=== PATIENT | male | born 1965 | race Caucasian/White ===

== ENCOUNTER 2023-08-27 19:47 | Inpatient (IN) | payer MEDICARE, SELFPAY ==
--- NOTE | ~2023-08-27 | XR_ITS ---
EXAMINATION: XR CHEST CLINICAL INFORMATION: Cough COMPARISON: None available. TECHNIQUE: Frontal portable view of the chest was obtained. 11:28 AM FINDINGS: No significant abnormality is noted involving the heart, lungs, mediastinum, bony thorax or soft tissues. XR/XR chest 1V IMPRESSION: Unremarkable examination.
[2023-08-27 19:58] VITALS: BP 162/111; PULSE 87; O2SAT 98; BMI 32.9
[2023-08-27 20:02] VITALS: BP 126/80; PULSE 82; RESP 18; TEMP 36.7; O2SAT 97
[2023-08-27 20:49] LABS: Basophils Percent Auto 0.4 % (0-2); Eosinophils Absolute Auto 0.1 X10*3/uL (0.0-0.4); Hematocrit 43.9 % (42.0-52.0); Hemoglobin 14.4 g/dl (14.0-18.0); Imm Gran Abs Auto 0.03 X10*3/uL (0.00-0.03); Imm Gran Pct Auto 0.3 % (0.0-0.4); Lymphocytes Absolute Auto 1.1 X10*3/uL (1.2-4.9); Lymphocytes Percent Auto 11.4 % (20-40); MANUAL DIFF FLAG NO; Mean Corpuscular HGB Conc 32.8 g/dl (31.0-36.0); Mean Corpuscular Hemoglobin 30.2 pg (27.0-33.0); Mean Platelet Volume 10.2 fL (9.4-12.4); Monocytes Absolute Auto 0.8 X10*3/uL (0.1-1.2); Monocytes Percent Auto 7.9 % (2-11); Neutrophils Absolute Auto 7.5 x10*3/uL (2.0-8.3); Platelet Count 269 X10*3/uL (160-400); Red Blood Count 4.77 X10*6/uL (4.60-5.80); Red Cell Distribution Width 13.2 % (11.0-16.0); White Blood Count 9.4 X10*3/uL (4.8-10.8)
[2023-08-27 21:00] LABS: Ethanol < 10 mg/dL
[2023-08-27 21:02] LABS: Alanine Aminotransferase 30 U/L (0-40); Albumin Level 3.8 g/dL (3.5-5.0); Alkaline Phosphatase 68 U/L (39-117); Anion Gap 10 (12-20); Aspartate Amino Transferase 22 U/L (5-37); Bilirubin Direct 0.1 mg/dL (0.0-0.5); Bilirubin Total 0.3 mg/dL (0.0-1.0); Blood Urea Nitrogen 26 mg/dL (9-16); Calcium 9.3 mg/dL (8.4-10.2); Carbon Dioxide 25 mmol/L (22-29); Chloride 108 mmol/L (96-108); Creatinine Clr Calc Pharmacy 92.3; Estimated Glomerular Filt Rate > 60; Glucose Random 98 mg/dL (60-115); Sodium 139 mmol/L (135-145); Total Protein 6.5 g/dL (6.5-8.0)
--- NOTE | 2023-08-27 22:42 | PHA.MEDREC ---
Pharmacy Consult ? Medication Reconciliation Pharmacy has completed the medication reconciliation.Family member has discharge list from [facility]. Went through list and confirmed times and doses of medications. Cecilia Irene CPhT
--- NOTE | 2023-08-27 22:55 | ED_ITS ---
HPI - General Adult General Chief complaint: General Medical Stated complaint: BEHAVIORAL,NOT MED COMPLIANT Time Seen by Provider: 08/27/23 20:54 Source: patient and family Mode of arrival: EMS History of Present Illness HPI narrative: 58-year-old male with history of Lewy body dementia, aggression and is arriving via EMS from home with increasing agitation. History is primarily provided by the who is concerned because there are younger children at home and patient becomes very agitated when he does not get his medications at the time that he asks for them. states that approximately 2 weeks ago he was discharged from [facility] when he insurance ran out, however at that time they were pursuing placement and had an intake appointment for that facility but then when they were discharged the intake appointment was no longer available. Patient has significantly declined over the past 2 weeks and has begun passing urine but currently has a [place] catheter in place. also endorses that patient has significant past history of suicide attempts. Related Data Home Medications Medication Instructions Recorded Confirmed carbidopa ER 25 mg-levodopa 100 mg 1 tab PO TID 08/27/23 08/27/23 tablet,extended release donepezil 5 mg tablet 5 mg PO BEDTIME 08/27/23 08/27/23 escitalopram oxalate 20 mg tablet 20 mg PO BEDTIME 08/27/23 08/27/23 gabapentin 300 mg capsule 300 mg PO TID 08/27/23 08/27/23 melatonin 10 mg tablet 10 mg PO BEDTIME Insomnia 08/27/23 08/27/23 prazosin 1 mg capsule 1 mg PO BID 08/27/23 08/27/23 risperidone 0.5 mg tablet 0.5 mg PO BID 08/27/23 08/27/23 zolpidem 5 mg tablet 5 mg PO BEDTIME 08/27/23 08/27/23 Allergies Allergy/AdvReac Type Severity Reaction Status Date / Time Penicillins Allergy Rash Verified 08/27/23 20:05 Review of Systems 2 Review of Systems: Pertinent positives and negatives as reported in the [facility] Past Medical History Source: nursing notes reviewed Onset Date is defined in the Problem List Problems that require an onset date and time if occurred within 24 hrs of arrival to the ED Aortic Dissection and Rupture; Neurologic impairment; Cardiopulmonary Arrest; Endotracheal Intubation; Insertion or Replacement of Mechanical Circulatory Assist Device Social History Social History Advance Directives: No Advance Directives Information Provided: No Physical Exam ED Vital Signs: Vital Signs - 24 hr 08/27/23 20:02 Temperature 98.1 F Pulse Rate 82 Respiratory Rate 18 Blood Pressure 126/80 Pulse Oximetry 97 Oxygen Delivery Method Room Air BMI result Body Mass Index 32.9 VITAL SIGNS: Reviewed. GENERAL: Well developed, well nourished, in no acute distress. HEAD: Normocephalic/atraumatic EYES: PERRLA, EOMI EARS: Ext canals without abnormality NOSE: Nares patent bilateral OROPHARYNX: no oral lesions noted, posterior pharynx clear NECK: Supple, no adenopathy LUNGS: Normal breath sounds. No adventitious sounds or accessory muscle use. SpO2<97> CARDIOVASCULAR: Regular rate and rhythm without noted murmurs ABDOMEN: Soft, non-tender, non-distended with bowel sounds. : [place] catheter in place with clear yellow urine MUSCULOSKELETAL: No tenderness, deformities, or effusions noted on gross inspection. EXTREMITIES: No cyanosis, clubbing or edema. SKIN: Inspection of the skin reveals no rashes NEUROLOGIC: Alert and oriented x 2. Strength and sensation to light touch were grossly intact x 4, cranial nerves 2-12 are grossly intact. Medical Decision Making Medical Decision Making [facility] Narrative: 58-year-old male with history and clinical presentation consistent with progressing Lewy body dementia and now with decline in behavioral symptoms with aggression and agitation. I reviewed all investigations and hematologic indices are negative for leukocytosis/anemia/thrombocytopenia. Chemistry indices do not demonstrate an HEATHER and there is no electrolyte or liver enzyme derangements. Urinalysis is negative for UTI or hematuria. Urinalysis negative for UDS and alcohol is undetectable. Patient is otherwise medically cleared for further evaluation by the care team. Patient placed in physician observation because the patient needed more time for evaluation by the care team as well as Psychiatry. At the time observation was started the patient's vital signs were stable, patient is alert and oriented but slightly agitated, neuro: Nonfocal, CV RRR, lungs clear Differential Diagnosis Differential Diagnoses: The differential diagnosis associated with the presentation includes Please see the discussion above Admission/Observation Consideration of admission/observation: Escalation of care including admission/observation considered Please see the discussion above Consult Healthcare Provider Management of the patient was discussed with: Business Continuity Director Please see the discussion Lab Data [facility] Lab Attestation statement: I reviewed the patient's lab results. Please see the discussion above 08/27/23 20:44 08/27/23 20:44 Labs: Lab Results 08/27/23 08/27/23 Range/Units 20:44 23:06 WBC 9.4 (4.8-10.8) X10*3/uL RBC 4.77 (4.60-5.80) X10*6/uL Hgb 14.4 (14.0-18.0) g/dl Hct 43.9 (42.0-52.0) % MCV 92.0 (80.0-98.0) fL MCH 30.2 (27.0-33.0) pg MCHC 32.8 (31.0-36.0) g/dl RDW 13.2 (11.0-16.0) % Plt Count 269 (160-400) X10*3/uL MPV 10.2 (9.4-12.4) fL Immature Gran % (Auto) 0.3 (0.0-0.4) % Neut % (Auto) 79.0 H (45-73) % Lymph % (Auto) 11.4 L (20-40) % [place] % (Auto) 7.9 (2-11) % Eos % (Auto) 1.0 (0-4) % Baso % (Auto) 0.4 (0-2) % Lymph # (Auto) 1.1 L (1.2-4.9) X10*3/uL [place] # (Auto) 0.8 (0.1-1.2) X10*3/uL Eos # (Auto) 0.1 (0.0-0.4) X10*3/uL Baso # (Auto) 0.0 (0.0-0.2) X10*3/uL Abs Immat Gran (auto) 0.03 (0.00-0.03) X10*3/uL Absolute Neuts (auto) 7.5 (2.0-8.3) x10*3/uL Absolute Nucleated RBC 0.000 (0.0-0.012) X10*3/uL Nucleated RBC % (auto) 0.0 (0.0-0.2) /100WBC Sodium 139 (135-145) mmol/L Potassium 4.0 (3.3-5.1) mmol/L Chloride 108 (96-108) mmol/L Carbon Dioxide 25 (22-29) mmol/L Anion Gap 10 L (12-20) BUN 26 H (9-16) mg/dL Creatinine 1.04 (0.5-1.4) mg/dL Estim Creat Clear Calc 92.3 Estimated GFR > 60 Random Glucose 98 (60-115) mg/dL Calcium 9.3 (8.4-10.2) mg/dL Total Bilirubin 0.3 (0.0-1.0) mg/dL Direct Bilirubin 0.1 (0.0-0.5) mg/dL AST 22 (5-37) U/L ALT 30 (0-40) U/L Alkaline Phosphatase 68 (39-117) U/L Total Protein 6.5 (6.5-8.0) g/dL Albumin 3.8 (3.5-5.0) g/dL Urine Color Yellow Urine Appearance Clear Urine pH 7.0 (5.0-9.0) Ur Specific [place] 1.025 (1.005-1.025) Urine Protein Negative (Neg-Trace) mg/dL Urine Glucose (UA) Negative (Negative) mg/dL Urine Ketones Trace (Negative) mg/dL Urine Blood Negative (Negative) Urine Nitrite Negative (Negative) Ur Leukocyte Esterase Negative (Negative) Urine Opiates Screen Not Detected (Not Detect) Urine Fentanyl Screen Not Detected (Not Detect) Ur Barbiturates Screen Not Detected (Not Detect) Ur Phencyclidine Scrn Not Detected (Not Detect) Ur Amphetamines Screen Not Detected (Not Detect) U Benzodiazepines Scrn Not Detected (Not Detect) Urine Cocaine Screen Not Detected (Not Detect) U Marijuana (THC) Screen Not Detected (Not Detect) Ethyl Alcohol < 10 mg/dL Chronic Conditions Patient?s care impacted by: Other Lewy body dementia Critical Care Time Critical Care Time Critical Care Time: Yes Total Critical Care Time: 45 Attestation: I personally attest to this time spent taking care of the patient. Discharge Plan Discharge Clinical Impression: Lewy body dementia with behavioral disturbance Patient Disposition: Still a Patient Prescriptions: No Action donepezil 5 mg tablet 5 mg PO BEDTIME carbidopa-levodopa 25-100 mg tablet extended release 1 tab PO TID prazosin 1 mg capsule 1 mg PO BID gabapentin 300 mg capsule 300 mg PO TID zolpidem 5 mg tablet 5 mg PO BEDTIME risperidone 0.5 mg tablet 0.5 mg PO BID escitalopram oxalate 20 mg tablet 20 mg PO BEDTIME melatonin 10 mg Tablet 10 mg PO BEDTIME
[2023-08-27 23:17] LABS: Appearance Urine Clear; Color Urine Yellow; Glucose Urine UA Negative (Negative); Leukocyte Esterase Urine Negative (Negative); Nitrite Urine Negative (Negative); Specific Gravity - Urine 1.025 (1.005-1.025); Urine Blood Negative (Negative); Urine Ketones Trace mg/dL (Negative); Urine Protein Negative (Neg-Trace)
[2023-08-27 23:22] LABS: Amphetamine Screen Urine Not Detected (Not Detect); Barbiturates, Urine Not Detected (Not Detect); Benzodiazepines Screen Urine Not Detected (Not Detect); Cannabinoid Screen Urine Not Detected (Not Detect); Cocaine Screen Urine Not Detected (Not Detect); Fentanyl, urine Not Detected (Not Detect); Opiate Screen Urine Not Detected (Not Detect); Phencyclidine Screen Urine Not Detected (Not Detect)
[2023-08-28] VITALS (8 sets, daily range): BP systolic 122–137; BP diastolic 77–90; PULSE 63–84; RESP 14–18; TEMP 36.7–37.1; O2SAT 92–96
[2023-08-28] MEDS: Zolpidem Tartrate 5 MG TABLET PO ×2 (00:32→20:23)
[2023-08-28] MEDS: Gabapentin 300 MG CAPSULE PO ×4 (00:32→20:22)
[2023-08-28] MEDS: Escitalopram Oxalate 20 MG TABLET PO ×2 (00:32→20:21)
[2023-08-28] MEDS: Donepezil HCl 5 MG TABLET PO ×2 (00:32→20:24)
--- NOTE | 2023-08-28 07:22 | PC.NURSE ---
Assumed care of this pt at 0700. pt sleeping at the time of assuming care. vss, previously documented. Will continue to observe.
[2023-08-28] MEDS: risperiDONE 0.5 MG TABLET PO ×2 (09:21→20:23)
[2023-08-28] MEDS: Prazosin HCL 1 MG CAPSULE PO ×2 (09:21→20:22)
--- NOTE | 2023-08-28 09:28 | PC.NURSE ---
pt assisted to bedside commode. lg bm. meds given as documented. Sinemet not loaded in ed pyxis, pharmacy aware and will bring to ed. pt aware. vss.
[2023-08-28] MEDS: Carbidopa/Levodopa CR 25/100 TABLET.ER 1 TAB PO ×3 (09:46→20:20)
--- NOTE | 2023-08-28 13:45 | MHC.CARE ---
RAD Team conducted [place] bed[place], unfortunately no beds available. Faxed referral to [facility] waitlist. RAD Team will continue bedsearch tomorrow (08/29) if deemed appropriate
--- NOTE | 2023-08-28 19:18 | PC.NURSE ---
This RN took over pt care @ 1900. Pt ca&o sitting up watching tv. Pt requesting meds @ 8pm. Pt denies pain at this time. Plan of care ongoing.
[2023-08-28] MEDS: Melatonin 3 MG TABLET 9 MG PO (20:22)
--- NOTE | 2023-08-28 20:34 | PC.NURSE ---
Pt requested meds @ 1999. Pt medicated per oct. Pt denies pain at this time. Plan of care ongoing.
--- NOTE | 2023-08-28 21:33 | MHC.CARE ---
Pt was unable to be seen for his MSU due to being medicated and asleep for the night. According to his nurse (Lila) Pt insists on receiving his night time meds at 8pm. He was repeatedly ringing his buzzer tonight to request his night time med. He will require day time MSUs.
[2023-08-29 06:46] VITALS: BP 128/78; PULSE 73; RESP 18; TEMP 36.6; O2SAT 95
[2023-08-29] MEDS: risperiDONE 0.5 MG TABLET PO ×2 (09:25→20:22)
[2023-08-29] MEDS: Carbidopa/Levodopa CR 25/100 TABLET.ER 1 TAB PO ×3 (09:25→20:21)
[2023-08-29] MEDS: Gabapentin 300 MG CAPSULE PO ×3 (09:26→20:22)
[2023-08-29] MEDS: Prazosin HCL 1 MG CAPSULE PO ×2 (09:26→20:22)
--- NOTE | 2023-08-29 11:34 | PC.NURSE ---
pt's came to visit. pt took medications this morning. pt has been resting
--- NOTE | 2023-08-29 13:51 | P.CNPS_ITS ---
History of Present Illness Date of Service: t Chief Complaint: BEHAVIORAL,NOT MED COMPLIANT Reason for Consult: Assessment of dysphoria and dementia Discussed with referring provider: Yes Sources of Information: patient interviewed, chart reviewed and crisis/core team assessment reviewed HPI Narrative: The patient is a 58-year-old male, with a past history of leave with body dementia who was recently discharged 2 weeks ago from another hospital he ran out of his benefits on his insurance. He was brought to the emergency room since he reported suicidal ideation, disorganized behavior and his family were unable to take care of him. On interview, the patient reported that he was brought to the emergency room because he was feeling suicidal, he did not have any current plan or intent. He stated that he also besides being depressed, he has poor short-term memory. He carries a diagnosis of living but dementia is 69 that he has tremors. We review his list of medications and even though that anti cholinesterases are not standard of care, there is enough scientific evidence to use it for we poorly we body dementia. Past Psychiatric History: Prior admission a few weeks ago at [facility] for early we would dementia. Medical Evaluation Reviewed: Yes Diagnostics Vital Signs (24Hr): Vital Signs - 24 hr 08/28/23 14:00 08/28/23 19:11 08/29/23 06:46 Temperature 98.1 F 97.9 F Pulse Rate 83 83 73 Respiratory Rate 16 17 18 Blood Pressure 122/77 135/81 128/78 Pulse Oximetry 95 94 95 Oxygen Delivery Method Room Air Room Air Room Air BMI result Body Mass Index 32.9 Labs 08/27/23 20:44 08/27/23 20:44 Labs: Laboratory Results - last 48 hr 08/27/23 08/27/23 20:44 23:06 WBC 9.4 RBC 4.77 Hgb 14.4 Hct 43.9 MCV 92.0 MCH 30.2 MCHC 32.8 RDW 13.2 Plt Count 269 MPV 10.2 Immature Gran % (Auto) 0.3 Neut % (Auto) 79.0 H Lymph % (Auto) 11.4 L [place] % (Auto) 7.9 Eos % (Auto) 1.0 Baso % (Auto) 0.4 Lymph # (Auto) 1.1 L [place] # (Auto) 0.8 Eos # (Auto) 0.1 Baso # (Auto) 0.0 Abs Immat Gran (auto) 0.03 Absolute Neuts (auto) 7.5 Absolute Nucleated RBC 0.000 Nucleated RBC % (auto) 0.0 Sodium 139 Potassium 4.0 Chloride 108 Carbon Dioxide 25 Anion Gap 10 L BUN 26 H Creatinine 1.04 Estim Creat Clear Calc 92.3 Estimated GFR > 60 Random Glucose 98 Calcium 9.3 Total Bilirubin 0.3 Direct Bilirubin 0.1 AST 22 ALT 30 Alkaline Phosphatase 68 Total Protein 6.5 Albumin 3.8 Urine Color Yellow Urine Appearance Clear Urine pH 7.0 Ur Specific [place] 1.025 Urine Protein Negative Urine Glucose (UA) Negative Urine Ketones Trace Urine Blood Negative Urine Nitrite Negative Ur Leukocyte Esterase Negative Urine Opiates Screen Not Detected Urine Fentanyl Screen Not Detected Ur Barbiturates Screen Not Detected Ur Phencyclidine Scrn Not Detected Ur Amphetamines Screen Not Detected U Benzodiazepines Scrn Not Detected Urine Cocaine Screen Not Detected U Marijuana (THC) Screen Not Detected Ethyl Alcohol < 10 Mental Status Exam Mental Status Exam Patient Appearance: Appropriate (On hospital gowns) and Unkempt Patient Orientation: Person and Situation Level of Consciousness: Awake Patient Behavior: Guarded Mood Description: Withdrawn Affect Description: Calm and Constricted Patient Cognition Impaired: Yes Ability to Follow Directions: Fair Speech Pattern: Clear Hallucinations: None Delusions: Not Present Thought Process: Distracted, Evasive and Slowed Thinking Thought Content: positive for [place] and positive for Poverty of Content Judgement: Poor Medications Medications Current Medications Carbidopa/Levodopa (Carbidopa/Levodopa Cr 25/100 Tablet.Er) 1 tab PO TID [facility] Last Admin: 08/29/23 09:25 Dose: 1 tab Donepezil HCl (Donepezil Hcl 10 Mg Tablet) 10 mg PO BEDTIME [facility] Escitalopram Oxalate (Escitalopram Oxalate 20 Mg Tablet) 20 mg PO BEDTIME [facility] Last Admin: 08/28/23 20:21 Dose: 20 mg Gabapentin (Gabapentin 300 Mg Capsule) 300 mg PO TID [facility] Last Admin: 08/29/23 09:26 Dose: 300 mg Melatonin (Melatonin 3 Mg Tablet) 9 mg PO BEDTIME [facility] Last Admin: 08/28/23 20:22 Dose: 9 mg Prazosin HCl (Prazosin Hcl 1 Mg Capsule) 1 mg PO BID [facility]; Protocol Last Admin: 08/29/23 09:26 Dose: 1 mg Risperidone (Risperidone 0.5 Mg Tablet) 0.5 mg PO BID [facility] Last Admin: 08/29/23 09:25 Dose: 0.5 mg Zolpidem Tartrate (Zolpidem Tartrate 5 Mg Tablet) 5 mg PO BEDTIME [facility] Last Admin: 08/28/23 20:23 Dose: 5 mg Allergies Allergies Allergy/AdvReac Type Severity Reaction Status Date / Time Penicillins Allergy Rash Verified 08/27/23 20:05 Assessment & Plan Assessment & Plan (1) Lewy body dementia with behavioral disturbance: Status: Acute Code(s): G31.83 - Neurocognitive disorder with Lewy bodies; F02.818 - Dementia in other diseases classified elsewhere, unspecified severity, with other behavioral disturbance (2) Depressive disorder: Status: Acute Code(s): F32.A - Depression, unspecified Plan The patient is an elderly male with a past history of leaving but he dementia who was brought into the facility for exacerbation of dysphoria, suicidal ideation and inability take care of himself. He was recently discharged from another hospital for the same symptomatology few weeks ago. Plan 1. Gather collateral information, the patient is a very limited historian. 2. Continue antidepressants and Risperdal 0.5 mg p.o. b.i.d.. The we but dementia patients are extremely sensitive to antipsychotics. 3. Increased Aricept problem mg p.o. q.h.s. to 10 mg p.o. q.h.s. as an over protection. 4. The patient needs inpatient level of care continue bed search. 5. Reassessment as demand. Total time managing care of this patient today _45___ minutes. Patient educated on: diagnosis Informed Consent: further education needed
--- NOTE | 2023-08-29 16:41 | MHC.CARE ---
[place] Team [place] [facility] [place] [facility], [facility] beds available, bed search will continue tomorrow (08/30) if deemed necessary
[2023-08-29 16:52] VITALS: BP 138/80; PULSE 80; RESP 16; TEMP 36.5; O2SAT 95
[2023-08-29] MEDS: Melatonin 3 MG TABLET 9 MG PO (20:21)
[2023-08-29] MEDS: Zolpidem Tartrate 5 MG TABLET PO (20:22)
[2023-08-29] MEDS: Escitalopram Oxalate 20 MG TABLET PO (20:22)
[2023-08-29] MEDS: Donepezil HCl 10 MG TABLET PO (20:22)
--- NOTE | 2023-08-30 00:15 | PC.NURSE ---
pt rang steve ulloa informed this rn pt was incontinent of urine. pt previously able to use bedside urinal. pt states was in a deep sleep and forgot. pt given reassurance. this rn and additional rn provided yuri care and changed bed linens
[2023-08-30 06:53] VITALS: BP 118/77; PULSE 70; RESP 14; O2SAT 96
--- NOTE | 2023-08-30 07:53 | PC.NURSE ---
patient found to be incontinent of urine this morning, patient cleaned up, linens and gown changed. patient sat up and ate his breakfast, ate 100% of his tray. respirations equal and unlabored, patient shows no signs of distress. skin PWD, patient is alert, fixated conversation on whether he will get and inpt psych bed today, patient reassured that the hospital staff is working on getting him a bed. patient is pleasent and cooperative, states today he feels tired and wants to go back to sleep.
[2023-08-30] MEDS: Prazosin HCL 1 MG CAPSULE PO ×2 (08:21→20:09)
[2023-08-30] MEDS: risperiDONE 0.5 MG TABLET PO ×2 (08:21→20:10)
[2023-08-30] MEDS: Gabapentin 300 MG CAPSULE PO ×3 (08:21→20:09)
[2023-08-30] MEDS: Carbidopa/Levodopa CR 25/100 TABLET.ER 1 TAB PO ×3 (08:22→20:09)
--- NOTE | 2023-08-30 11:23 | PC.NURSE ---
patient resting quietly in bed, appears to be sleeping, respirations equal and unlabored. patient shows no signs of distress patients came to visit, patient has remained calm, cooperative and pleasant
--- NOTE | 2023-08-30 12:49 | MHC.CARE ---
Rad Team completed [place] [facility] [place] (see bed search sheet for details). There are no [facility] beds available and no d/c's expected today. Bed search will resume tomorrow if needed.
--- NOTE | 2023-08-30 13:47 | PC.NURSE ---
patient sat up and ate his lunch, 100%. patient resting quietly in bed now, respirations equal and unlabored. patient is calm and cooperative, very pleasent
[2023-08-30 15:27] VITALS: BP 124/79; PULSE 80; RESP 16; TEMP 36.4; O2SAT 94
--- NOTE | 2023-08-30 16:41 | PC.NURSE ---
Patient resting on stretcher watching TV at this time. Patient asking about dinner and reassured that when dinner comes we will bring it in for him. Patient asking if he will be staying in this department tonight and confirmed that he will be staying for tonight.
--- NOTE | 2023-08-30 18:23 | PC.NURSE ---
Dinner tray provided to patient, patient expressed satisfaction and gratitude. Head of bed raised, call ulloa within reach. Resp even and unlabored.
[2023-08-30 20:08] VITALS: BP 114/81; PULSE 85; RESP 18; TEMP 36.4; O2SAT 95
[2023-08-30] MEDS: Melatonin 3 MG TABLET 9 MG PO (20:09)
[2023-08-30] MEDS: Escitalopram Oxalate 20 MG TABLET PO (20:09)
[2023-08-30] MEDS: Zolpidem Tartrate 5 MG TABLET PO (20:09)
[2023-08-30] MEDS: Donepezil HCl 10 MG TABLET PO (20:10)
--- NOTE | 2023-08-30 20:22 | PC.NURSE ---
Patient given HS medications without issue, vitals signs as documented. Patient asked for HOB to be flat so that he can get to sleep. Patient continues to be calm and cooperative with staff.
[2023-08-30 23:11] VITALS: BP 105/66; PULSE 72; RESP 16; TEMP 36.8; O2SAT 92
--- NOTE | 2023-08-30 23:48 | PC.NURSE ---
This RN took over care @ 2340 Pt resting comfortably in bed. Plan of care ongoing.
[2023-08-31 05:43] VITALS: BP 122/83; PULSE 66; RESP 16; TEMP 36.4; O2SAT 94
[2023-08-31] MEDS: Gabapentin 300 MG CAPSULE PO ×3 (08:25→19:57)
[2023-08-31] MEDS: Carbidopa/Levodopa CR 25/100 TABLET.ER 1 TAB PO ×3 (08:25→19:57)
[2023-08-31] MEDS: risperiDONE 0.5 MG TABLET PO ×2 (08:25→19:56)
[2023-08-31] MEDS: Prazosin HCL 1 MG CAPSULE PO ×2 (08:25→19:57)
[2023-08-31 08:28] VITALS: BP 133/87; PULSE 71; RESP 16; O2SAT 94
--- NOTE | 2023-08-31 08:31 | PC.NURSE ---
assumed care of pt at 0700. pt a&o, pleasant, calm, and cooperative. pt sts he refused his breakfast this AM due to ulloa pain. pt medicated per mar. asking for t/w to call to ask her not to visit today. pt does not want to drive in snow, he is tired, and doesn't want his to catch anything since he has belly pain. sitter camera at bedside for pt safety. call ulloa within reach. plan of care ongoing.
--- NOTE | 2023-08-31 09:08 | PC.NURSE ---
t/w called pt's , no answer, left message.
--- NOTE | 2023-08-31 10:35 | PC.NURSE ---
pt at bedside. pt sleeping, rr even/unlabored. plan of care ongoing.
--- NOTE | 2023-08-31 11:33 | PC.NURSE ---
Assumed care of patient at 1100, patient is sleeping at this time, respirations even and unlabored, skin pwd, appears to be in no apparent distress
[2023-08-31 11:52] VITALS: BP 129/85; PULSE 69; RESP 16; TEMP 36.6; O2SAT 94
--- NOTE | 2023-08-31 14:22 | PC.NURSE ---
Pt ate 100% of lunch, offers no complaints, now laying back down sleeping, RR even and unlabored, no apparent distress
--- NOTE | 2023-08-31 14:58 | PC.NURSE ---
Pt laying in bed, appears to be in no apparent distress. Medicated with 3pm scheduled meds (see MAR), offers no complaints at this time. Bed search continues. Call ulloa placed with reach, video monitoring in place.
--- NOTE | 2023-08-31 16:37 | PC.NURSE ---
Estrellita from care team at bedside.
--- NOTE | 2023-08-31 18:10 | MHC.CARE ---
Pt was cleared by CARE team and referred to case management for LTC placement.
[2023-08-31 19:07] VITALS: BP 118/81; RESP 16; TEMP 36.6; O2SAT 92
[2023-08-31] MEDS: Melatonin 3 MG TABLET 9 MG PO (19:56)
[2023-08-31] MEDS: Donepezil HCl 10 MG TABLET PO (19:57)
[2023-08-31] MEDS: Escitalopram Oxalate 20 MG TABLET PO (19:57)
[2023-08-31] MEDS: Zolpidem Tartrate 5 MG TABLET PO (19:57)
--- NOTE | 2023-08-31 22:06 | MHC.CM.ED ---
CM called and spoke with /HCP Alisha Tomlin ([phone]). Alisha tells CM that she and her have been dealing with his diagnosis of Lewy Body Dementia for several years now and have seen many specialists at [facility] in [place]. Neurologist Dr. Buzz Monsalve ([phone]) and Dr. Noel Carter ([phone]). Patient has been inpatient psych many times for medication management. Alisha tells YESSICA he does better behaviorally when inpatient and feels that somehow, home triggers him. She says he has become aggressive. Alisha tells YESSICA he was recently at [facility] and they were working on LTC placement at [facility]. She tells CM that his provider in [place] sent a letter requesting need for LTC at [facility]. Unfortunately, the patient was discharged from [facility] due to insurance and the referral to [facility] was not completed. Alisha states she was working with the trade show coordinator, Tejal, at [facility]. Alisha states she has called [facility] times since her was discharged home, but had no response. Alisha tells YESSICA that her wants to go to LTC and is very cooperative about that, but that he is becoming aggressive at home and she feels she and her children are not safe at home with him. He cannot be discharged home. Alisha would like his HCP invoked. CM met with patient. He is alert and oriented x4. Pt can tell CM why he is in the ED. States he cannot be home. States he needs more structure and needs to be in a facility. States he feels as if his condition is worsening. Tells CM he was diagnosed at 55 years old. 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 Tells CM he had to take a leave of absence from work. Has been in many psych units. He does not feel an inpatient psych admission will help him. Requesting LTC. States he is scared to go, but knows he needs to. States he calls his all the time and feels like he is upsetting her. CM stressed that his understands, and wants only the best for him. CM is not concerned about patients capacity to make decisions. Pt has fine tremor and parkinson like symptoms per patient. Patient states his speech is affected also. CM assured patient that CM would work on LTC for him. Referral would be placed to [facility], as they have a locked unit. If [facility] cannot offer a bed, then CM will make local referrals to facilities with locked dementia units. Spoke with patient regarding move to overflow for comfort. Pt is agreeable. Spoke with primary RN and Clinical Coordinator. Pt will be moved to overflow. CM will follow for discharge planning.
[2023-09-01 09:10] VITALS: BP 117/75; PULSE 80; RESP 16; TEMP 36.4; O2SAT 95
[2023-09-01] MEDS: Gabapentin 300 MG CAPSULE PO ×3 (09:15→20:03)
[2023-09-01] MEDS: Prazosin HCL 1 MG CAPSULE PO ×2 (09:15→21:50)
[2023-09-01] MEDS: Carbidopa/Levodopa CR 25/100 TABLET.ER 1 TAB PO ×3 (09:16→21:52)
[2023-09-01] MEDS: risperiDONE 0.5 MG TABLET PO ×2 (09:16→20:03)
--- NOTE | 2023-09-01 10:53 | MHC.CM.ED ---
Addendum entered by Kiley Corona 09/01/23 12:40: Copy of HCP left on CM desk. Placed in chart and scanned into [facility]. List of facilities contracted with patient's insurance also left. Referrals made to [facility], [facility], [facility] and [facility]. Original Note: Patient remains in ER overflow. Referral was made to [facility] last night. T/W left voicemail for Christiana at [facility] to discuss bed availability. Awaiting call back. Continue to monitor for d/c needs.
--- NOTE | 2023-09-01 13:57 | MHC.CM.ED ---
No bed offers at this time. Still waiting to hear from [facility]. With Alisha's permission, T/W reached out to [facility] case workers, Vaughn via email with Alisha's permission. Waiting for response. Per Alisha, [facility] is a medicaid product and will cover residential care. Continue to monitor for d/c needs.
[2023-09-01 14:00] VITALS: BP 142/80; PULSE 84; RESP 17; TEMP 36; O2SAT 93
--- NOTE | 2023-09-01 18:08 | PM.PSYCN ---
History of Present Illness Date of Service: 09/01/2023 Chief Complaint: BEHAVIORAL,NOT MED COMPLIANT Discussed with referring provider: Yes Sources of Information: patient interviewed, chart reviewed and crisis/core team assessment reviewed HPI Narrative: Mr. Tomlin is a 58 year-old male with hx LBD increase impulsive, explosive behaviors. Pt brought to [facility] ED due to inability to stay safely in the community and awaiting placement. Pt seen in the ED. He is calm and cooperative. He reports my dementia is getting worse I am going to a place. He denies SI/HI. No overt delusional or psychosis noted. In the ED, pt has not had any behavioral concerns. He is taking medications as prescribed. At times he may say he is not taking them but when approach with medications he does take them. Past Psychiatric History: Prior admission a few weeks ago at [facility] for early we would dementia. Diagnostics Vital Signs (24Hr): Vital Signs - 24 hr 08/31/23 19:07 09/01/23 09:10 09/01/23 14:00 Temperature 97.9 F 97.6 F 96.8 F Pulse Rate 80 84 Respiratory Rate 16 16 17 Blood Pressure 118/81 117/75 142/80 H Pulse Oximetry 92 95 93 Oxygen Delivery Method Room Air Room Air Room Air BMI result Body Mass Index 32.9 Labs 08/27/23 20:44 08/27/23 20:44 Mental Status Exam Mental Status Exam Narrative: Appearance: wearing hospital gown, fair hygiene, in NAD Behavior: cooperative Psychomotor: no agitation or retardation noted Speech: clear, normal rate/rhythm/volume, spontaneous TP: mostly linear TC: wanting to go to LTC Mood: good Affect: congruent SI: denies HI: denies VH/AH: no overt signs Delusions: no overt signs Insight/judgment: impaired x 2. Memory/cog: alert, oriented x3. no formal assessment of cognitive/memory. Medications Medications Current Medications Carbidopa/Levodopa (Carbidopa/Levodopa Cr 25/100 Tablet.Er) 1 tab PO TID [facility] Last Admin: 09/01/23 14:59 Dose: 1 tab Donepezil HCl (Donepezil Hcl 10 Mg Tablet) 10 mg PO BEDTIME [facility] Last Admin: 08/31/23 19:57 Dose: 10 mg Escitalopram Oxalate (Escitalopram Oxalate 20 Mg Tablet) 20 mg PO BEDTIME [facility] Last Admin: 08/31/23 19:57 Dose: 20 mg Gabapentin (Gabapentin 300 Mg Capsule) 300 mg PO TID [facility] Last Admin: 09/01/23 14:59 Dose: 300 mg Melatonin (Melatonin 3 Mg Tablet) 9 mg PO BEDTIME [facility] Last Admin: 08/31/23 19:56 Dose: 9 mg Prazosin HCl (Prazosin Hcl 1 Mg Capsule) 1 mg PO BID [facility]; Protocol Last Admin: 09/01/23 09:15 Dose: 1 mg Risperidone (Risperidone 0.5 Mg Tablet) 0.5 mg PO BID [facility] Last Admin: 09/01/23 09:16 Dose: 0.5 mg Allergies Allergies Allergy/AdvReac Type Severity Reaction Status Date / Time Penicillins Allergy Rash Verified 08/27/23 20:05 Assessment & Plan Assessment & Plan (1) Lewy body dementia: Status: Acute Code(s): G31.83 - Neurocognitive disorder with Lewy bodies; F02.80 - Dementia in other diseases classified elsewhere, unspecified severity, without behavioral disturbance, psychotic disturbance, mood disturbance, and anxiety Plan Mr. Tomlin is a 58 year-old male with hx of LBD with complex neuropsychiatric symptoms which have been difficult to manage in the community. He is fairly stable at hs time in terms of combative or impulsive or explosive behaviors. He is awaiting placement. No imminent need for inpatient psychiatric admission. If his behavior or neuropsychiatric symptoms worsened, reconsult psychiatry, otherwise, he is ready to transition to LTC. Total time managing care of this patient today ____ minutes.
[2023-09-01] MEDS: Escitalopram Oxalate 20 MG TABLET PO (20:03)
[2023-09-01] MEDS: Melatonin 3 MG TABLET 9 MG PO (20:04)
[2023-09-01 21:19] VITALS: BP 144/87; PULSE 80; RESP 18; TEMP 36; O2SAT 96
[2023-09-01] MEDS: Donepezil HCl 10 MG TABLET PO (21:50)
[2023-09-02 06:00] VITALS: BP 125/79; PULSE 77; RESP 18; TEMP 36.8; O2SAT 98
[2023-09-02] MEDS: Gabapentin 300 MG CAPSULE PO ×3 (08:15→20:30)
[2023-09-02] MEDS: Carbidopa/Levodopa CR 25/100 TABLET.ER 1 TAB PO ×3 (08:15→20:30)
[2023-09-02] MEDS: risperiDONE 0.5 MG TABLET PO ×2 (08:15→20:29)
[2023-09-02] MEDS: Prazosin HCL 1 MG CAPSULE PO ×2 (08:15→20:30)
--- NOTE | 2023-09-02 11:48 | PC.NURSE ---
pt awake/alert to person/place, pt calm/compliant, pt denying pain/discomfort, pt fixated on when he can have his medications, he was reoriented to time as he continues to ask, camera intact for patient safety, breathing is non labored, call ulloa within reach, will continue to monitor
[2023-09-02 14:00] VITALS: BP 120/75; PULSE 84; RESP 18; TEMP 36; O2SAT 98
--- NOTE | 2023-09-02 14:16 | MHC.CM.ED ---
Addendum entered by Kiley Corona 09/02/23 16:03: Update given to , Alisha, via telephone. Original Note: Patient remains in ER overflow. Waiting to hear from [facility], [facility], [facility] and [facility] about bed availability. Continue to monitor for d/c needs.
--- NOTE | 2023-09-02 15:01 | PC.NURSE ---
pt medicated per order, condom cath reapplied-patient/draining
--- NOTE | 2023-09-02 16:27 | PC.NURSE ---
patient is awake/alert to self, pt is fixated on medication administration, patient states that he doesnt want to take his meds and then changes his mind, pt also states he doesnt wish to eat dinner and changes his mind. This nurse continues to attempt to orient the patient and converse with him that it is in his best interest to take his medication but he has the right to refuse it if he wishes same goes for his dinner. Patient states that he will think about eating and taking his medications.
[2023-09-02] MEDS: Melatonin 3 MG TABLET 9 MG PO (20:29)
[2023-09-02] MEDS: Escitalopram Oxalate 20 MG TABLET PO (20:29)
[2023-09-02] MEDS: Donepezil HCl 10 MG TABLET PO (20:30)
--- NOTE | 2023-09-03 02:04 | PC.NURSE ---
pt not in waiting room at this time.
[2023-09-03 06:20] VITALS: BP 134/85; PULSE 74; RESP 19; TEMP 36.4; O2SAT 95
[2023-09-03] MEDS: Carbidopa/Levodopa CR 25/100 TABLET.ER 1 TAB PO ×3 (07:50→20:04)
[2023-09-03] MEDS: Prazosin HCL 1 MG CAPSULE PO ×2 (07:50→20:05)
[2023-09-03] MEDS: Gabapentin 300 MG CAPSULE PO ×3 (07:51→20:05)
[2023-09-03] MEDS: risperiDONE 0.5 MG TABLET PO ×2 (07:51→20:05)
[2023-09-03 07:52] VITALS: BP 129/87; PULSE 72; RESP 14; O2SAT 93
--- NOTE | 2023-09-03 08:58 | MHC.EDTECH ---
PT ATE 100% OF HIS BREAKFAST. 240CC OF FLUIDS
--- NOTE | 2023-09-03 13:23 | MHC.EDTECH ---
PT ATE 100% OF HIS LUNCH AND 240CC OF FLUIDS. PT IS RESTING IN BED.
--- NOTE | 2023-09-03 13:54 | MHC.EDTECH ---
PT WASHED UP AND REPOSITIONED. ASKED PT IF HE WANTED TO GET UP INTO RECLINER CHAIR, HE DECLINED. WANTS TO SLEEP. SAFETY CHECKS IN PLACE.
[2023-09-03 14:00] VITALS: BP 139/70; PULSE 85; RESP 20; TEMP 37.1; O2SAT 95
--- NOTE | 2023-09-03 14:29 | MHC.CM.ED ---
Met with pt to review LTC referrals: no formal offers: spoke w/Briget from [facility] who states no beds predicted for awhile - [facility] or [facility]; the only facilities that showed interest. Spoke with pt and spouse Alisha about expanding referral to 50 mile radius: both agreeable. Referrals made and awaiting offers. Pt understands he will board in ED until LTC bed can be found. ED CM to follow.
--- NOTE | 2023-09-03 17:27 | MHC.EDTECH ---
Patient ate 100% of his supper
[2023-09-03 20:05] VITALS: BP 152/83; PULSE 95; RESP 18; TEMP 36.4; O2SAT 95
[2023-09-03] MEDS: Melatonin 3 MG TABLET 9 MG PO (20:05)
[2023-09-03] MEDS: Donepezil HCl 10 MG TABLET PO (20:05)
[2023-09-03] MEDS: Escitalopram Oxalate 20 MG TABLET PO (20:05)
--- NOTE | 2023-09-03 21:41 | MHC.EDTECH ---
patient was clean empty the [place] cath repostion
[2023-09-04 06:00] VITALS: BP 119/75; PULSE 72; RESP 18; TEMP 36.6; O2SAT 93
[2023-09-04] MEDS: Carbidopa/Levodopa CR 25/100 TABLET.ER 1 TAB PO ×3 (08:50→20:44)
[2023-09-04] MEDS: Gabapentin 300 MG CAPSULE PO ×3 (08:50→20:44)
[2023-09-04] MEDS: Prazosin HCL 1 MG CAPSULE PO ×2 (08:50→20:44)
[2023-09-04] MEDS: risperiDONE 0.5 MG TABLET PO ×2 (08:50→20:44)
[2023-09-04 14:47] VITALS: BP 131/73; PULSE 88; RESP 18; TEMP 36.6; O2SAT 93
--- NOTE | 2023-09-04 14:58 | MHC.CM.ED ---
Patient remains in ER overflow. Still trying to find LTC placement. No bed offers at this time. Continue to monitor for d/c needs.
--- NOTE | 2023-09-04 18:39 | PC.NURSE ---
patient with Lewy Body Dementia and is constantly asking questions regarding his care, he is redirectable only for brief moments. right arm pit with some redness noted, possible yeast.
--- NOTE | 2023-09-04 20:06 | MHC.EDTECH ---
Patient stated his [place] catheter had fallen off, I replaced it and washed patient up. I noticed a red rash with white build up under his right auxiliary area. Dorota Duron notified. Pt received new sheets, clean gown and ice water.SG
[2023-09-04] MEDS: Melatonin 3 MG TABLET 9 MG PO (20:44)
[2023-09-04] MEDS: Donepezil HCl 10 MG TABLET PO (20:44)
[2023-09-04] MEDS: Escitalopram Oxalate 20 MG TABLET PO (20:45)
[2023-09-04 20:48] VITALS: BP 124/77; PULSE 78; RESP 20; TEMP 36.9; O2SAT 93
--- NOTE | 2023-09-04 22:38 | PC.NURSE ---
pt is resting comfortably in bed w/ eyes closed, breathing is even and unlabored. no apparent distress at this time. camera at place at end of bed.
[2023-09-05 06:00] VITALS: BP 121/72; PULSE 73; RESP 16; TEMP 37.1; O2SAT 94
--- NOTE | 2023-09-05 08:45 | PC.NURSE ---
PT IS A/O X 4. NO SOB/MAYDA NOTED SPEAKS IN FULL SENTENCES. PT CONSTANTLY ASK THE SAME REPETITIVE QUESTIONS. C/O 3/10 UPPER EXT PAIN. NO EDEMA NOTED. BREAKFAST AT BEDSIDE. PT TAKES HIS MEDS WHOLE. CAMERA AT BEDSIDE AND BED ALARM IS ON. WILL CONTINUE TO MONITOR.
[2023-09-05 08:53] VITALS: BP 145/86; PULSE 84; RESP 17; TEMP 36.5; O2SAT 94
[2023-09-05] MEDS: Gabapentin 300 MG CAPSULE PO ×3 (08:54→20:04)
[2023-09-05] MEDS: risperiDONE 0.5 MG TABLET PO ×2 (08:54→20:05)
[2023-09-05] MEDS: Carbidopa/Levodopa CR 25/100 TABLET.ER 1 TAB PO ×3 (08:54→20:05)
[2023-09-05] MEDS: Prazosin HCL 1 MG CAPSULE PO ×2 (08:54→20:04)
--- NOTE | 2023-09-05 10:00 | MHC.EDTECH ---
Patient was washed up in bed, bedding changed, and pillows were placed under his right side of the body.
--- NOTE | 2023-09-05 11:53 | PC.NURSE ---
Patient refused his lunch will leave it aside and will try to give it to him again.
[2023-09-05 14:00] VITALS: BP 130/68; PULSE 82; RESP 20; TEMP 36.7; O2SAT 93
--- NOTE | 2023-09-05 14:27 | MHC.EDTECH ---
Patient was repositioned onto his left side. Patients has 400ml emptied from his tex[place] catheter.
[2023-09-05] MEDS: Melatonin 3 MG TABLET 9 MG PO (20:03)
[2023-09-05] MEDS: Escitalopram Oxalate 20 MG TABLET PO (20:04)
[2023-09-05] MEDS: Donepezil HCl 10 MG TABLET PO (20:05)
[2023-09-05 22:53] VITALS: RESP 16
[2023-09-06 03:03] VITALS: BP 107/78; PULSE 66; RESP 16; TEMP 36.8; O2SAT 95
--- NOTE | 2023-09-06 03:04 | MHC.EDTECH ---
PT informed karon that his external catheter fell off. karon changed catheter and emptied Garza bag with 700ml voided. PT was turned onto side to check for any bed sores. No sores to be reported at this time.
[2023-09-06] MEDS: Gabapentin 300 MG CAPSULE PO ×3 (08:16→21:40)
[2023-09-06] MEDS: risperiDONE 0.5 MG TABLET PO ×2 (08:16→21:40)
[2023-09-06] MEDS: Carbidopa/Levodopa CR 25/100 TABLET.ER 1 TAB PO ×3 (08:16→21:40)
[2023-09-06 08:18] VITALS: BP 132/78; PULSE 74; RESP 16
[2023-09-06] MEDS: Prazosin HCL 1 MG CAPSULE PO ×2 (08:18→21:40)
--- NOTE | 2023-09-06 08:40 | MHC.CM.ED ---
Addendum entered by Kiley Corona 09/06/23 14:57: Alisha made aware via telephone. Addendum entered by Kiley Corona 09/06/23 10:48: Due to recent inpatient psych stay, patient will need [facility] PASRR Level 2. T/W already submitted for this. Original Note: Patient remains in ER overflow. [facility] Facility is interested in patient and requested additional clinical information. Info faxed to [phone] as requested. Attempted to speak with Charity at [facility] for Ext Stay. Left voicemail requesting return telephone call. Continue to monitor for d/c needs.
--- NOTE | 2023-09-06 09:32 | MHC.EDTECH ---
Pt ate 100% of his breakfast and requested to put the head of his bed down to go back to sleep. PT is still sleeping after breakfast.
--- NOTE | 2023-09-06 09:40 | PC.NURSE ---
assumed care of pt at 0700. pt compliant with taking morning medications. after took meds, stated he wanted to go back to sleep after breakfast. pt requesting to call to tell her not to visit today. sitter camera and bed alarm on for pt safety. plan of care ongoing.
--- NOTE | 2023-09-06 10:42 | PC.NURSE ---
pt at bedside visiting with pt.
--- NOTE | 2023-09-06 11:14 | MHC.EDTECH ---
PT declined getting washed up. Says he is tired and wants to go back to sleep. Will check again after lunch time.
[2023-09-06 13:40] VITALS: BP 117/79; PULSE 83; RESP 18; TEMP 36.8; O2SAT 95
--- NOTE | 2023-09-06 17:04 | PC.NURSE ---
pt set up to eat dinner. sitter camera in place and bed alarm on for pt safety. plan of care ongoing.
[2023-09-06 21:40] VITALS: BP 149/80; PULSE 76; RESP 16; TEMP 37.1; O2SAT 95
[2023-09-06] MEDS: Melatonin 3 MG TABLET 9 MG PO (21:40)
[2023-09-06] MEDS: Donepezil HCl 10 MG TABLET PO (21:40)
[2023-09-06] MEDS: Escitalopram Oxalate 20 MG TABLET PO (21:40)
[2023-09-07 06:00] VITALS: BP 142/81; PULSE 77; RESP 16; TEMP 36.7; O2SAT 94
--- NOTE | 2023-09-07 07:44 | PC.NURSE ---
patient is resting in bed, respirations equal and unlabored, has camera sitter for safety. patient shows no signs of distress
[2023-09-07] MEDS: Prazosin HCL 1 MG CAPSULE PO ×2 (08:49→20:25)
[2023-09-07] MEDS: Carbidopa/Levodopa CR 25/100 TABLET.ER 1 TAB PO ×3 (08:49→20:25)
[2023-09-07] MEDS: Gabapentin 300 MG CAPSULE PO ×3 (08:49→20:26)
[2023-09-07] MEDS: risperiDONE 0.5 MG TABLET PO ×2 (08:49→20:26)
--- NOTE | 2023-09-07 10:35 | PC.NURSE ---
patient requested for his gown to be changed, patient laying in bed, respirations equal and unlabored. patient skin PWD, patient linens are dry, patient texas cath in placed draining into brandon bag.
[2023-09-07 11:35] VITALS: BP 124/78; PULSE 82; RESP 18; TEMP 36.8; O2SAT 93
[2023-09-07 16:20] VITALS: BP 132/94; PULSE 80; RESP 18; TEMP 36.8; O2SAT 93
[2023-09-07 20:17] VITALS: BP 130/79; PULSE 75; RESP 17; TEMP 36.8; O2SAT 94
[2023-09-07] MEDS: Melatonin 3 MG TABLET 9 MG PO (20:25)
[2023-09-07] MEDS: Donepezil HCl 10 MG TABLET PO (20:26)
[2023-09-07] MEDS: Escitalopram Oxalate 20 MG TABLET PO (20:26)
--- NOTE | 2023-09-07 20:27 | PC.NURSE ---
pt pleasantly confused, regularly calls out for nurse, reassurance given, pt medicated per MAR. [place] condom cath fell off, new cath applied. bed locked in lowest position, bed alarm on, pt resting quietly. no new orders at this time.
[2023-09-08 06:00] VITALS: BP 143/80; PULSE 79; RESP 16; TEMP 36.6; O2SAT 95
[2023-09-08] MEDS: Gabapentin 300 MG CAPSULE PO ×3 (08:22→20:00)
[2023-09-08] MEDS: risperiDONE 0.5 MG TABLET PO ×2 (08:22→20:00)
[2023-09-08] MEDS: Prazosin HCL 1 MG CAPSULE PO ×2 (08:22→20:00)
[2023-09-08] MEDS: Carbidopa/Levodopa CR 25/100 TABLET.ER 1 TAB PO ×3 (08:22→20:00)
--- NOTE | 2023-09-08 12:58 | PC.NURSE ---
PT ATE 80% OF LUNCH
[2023-09-08 13:59] VITALS: BP 143/84; PULSE 84; RESP 17; TEMP 36.5; O2SAT 94
[2023-09-08] MEDS: Melatonin 3 MG TABLET 9 MG PO (20:00)
[2023-09-08] MEDS: Escitalopram Oxalate 20 MG TABLET PO (20:00)
[2023-09-08] MEDS: Donepezil HCl 10 MG TABLET PO (20:00)
[2023-09-08 21:48] VITALS: BP 108/72; PULSE 73; RESP 18; TEMP 36.4; O2SAT 93
[2023-09-09 06:00] VITALS: BP 143/95; PULSE 76; RESP 16; TEMP 36.5; O2SAT 92
--- NOTE | 2023-09-09 07:26 | PC.NURSE ---
patient awake, calling out for nurse to request no meds and no breakfast, just want to sleep . resting quietly in bed with even and unlabored respirations.
[2023-09-09] MEDS: risperiDONE 0.5 MG TABLET PO ×2 (08:04→20:03)
[2023-09-09] MEDS: Carbidopa/Levodopa CR 25/100 TABLET.ER 1 TAB PO ×3 (08:04→20:02)
[2023-09-09] MEDS: Gabapentin 300 MG CAPSULE PO ×3 (08:04→20:02)
[2023-09-09] MEDS: Prazosin HCL 1 MG CAPSULE PO ×2 (08:04→20:03)
--- NOTE | 2023-09-09 08:09 | PC.NURSE ---
patient ate all of breakfast and was medicated per the MAR, continues to call out for nurse
--- NOTE | 2023-09-09 09:08 | MHC.EDTECH ---
Pt ate 100% of his breakfast. 240cc of orange juice. Pt requested to lay back down after removing his tray from bedside table. Pt is very repetitive, repeating nurses name, asking the same questions. Stating he does not want to eat lunch, does not want to take meds.
--- NOTE | 2023-09-09 11:07 | MHC.EDTECH ---
Pt is washed, and freshly shaved face, used a shower cap to wash his hair. PT requested to lay back down after being fixed up. Says he is tired and would like to go back to sleep.
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
[2023-09-09 14:00] VITALS: BP 138/86; PULSE 89; RESP 18; TEMP 36.4; O2SAT 92
--- NOTE | 2023-09-09 14:49 | PC.NURSE ---
continues to state that he does not want his medications or food, however, when patient is provided with both he is willing to accept both. texas cath remains in place, resting quietly in room. no obvious signs/symptoms of distress noted.
--- NOTE | 2023-09-09 18:25 | MHC.EDTECH ---
patient was wash up and TX cath empty 600cc
--- NOTE | 2023-09-09 18:26 | PC.NURSE ---
linens changed, patient cleaned and repositioned in bed. requesting to sleep now for the night.
--- NOTE | 2023-09-09 19:26 | MHC.EDTECH ---
This Tech took over care of patient @19:00, This patient appears to be sleeping, No signs of distress. with camera on.
--- NOTE | 2023-09-09 19:31 | PC.NURSE ---
assumed care of pt 1915. pt sleeping resp even and unlabored. video monitor/bed alarm on. call ulloa within reach.
[2023-09-09] MEDS: Donepezil HCl 10 MG TABLET PO (20:02)
[2023-09-09] MEDS: Melatonin 3 MG TABLET 9 MG PO (20:02)
[2023-09-09] MEDS: Escitalopram Oxalate 20 MG TABLET PO (20:03)
[2023-09-09 20:34] VITALS: BP 149/88; PULSE 89; RESP 18; TEMP 36.9; O2SAT 93
--- NOTE | 2023-09-09 21:56 | P.HPHOSP_ITS ---
History of Present Illness Date of Service: 09/09/23 Attending physician on admission: Deven Barreto Chief Complaint: Confusion, aggressive behavior Pt is a 58-year-old male with a PMH significant for?Lewy body dementia, tremors, and depression who initially presented to the ED on 08/27 2023 for evaluation increasing agitation, disorganized behavior, and vague suicidal ideation. Patient's reports patient becomes very agitated when he does not get his medications at the time he requests them, and has become worried about the safety of the young children in the household. Patient was previously at [facility] and discharged approximately 2 weeks prior?around 08/13/2023. Pt was awaiting placement at SNF at that time but insurance ran out and pt was discharged home. states pt significantly declined in the 2 weeks since discharge. Workup in our ED negative for any acute abnormalities. Patient was placed in physician observation and sent to overflow area and then evaluated by Psychiatry, care team, and case management. A search for long-term care/dementia unit placement was undertaken, which has so far been unsuccessful with no beds available at this time. Pt will be admitted to the hospital floor while awaiting placement. While in overflow pt's hospital course was uncomplicated. Vitals remained stable and pt had mostly uneventful nights. Attempted to see pt for H&P interview and exam, but pt was sleeping peacefully. Given his hx of agitation and aggressive behaviors did not attempt to awaken. Review of Systems 2 Review of Systems: Patient sleeping, [facility] Social History Advance Directives: Yes Advance Directives on File: Yes Advance Directives Date on File: 09/01/23 Healthcare Proxy: Yes ( Alisha) Guardian: No Meds Allergies Allergy/AdvReac Type Severity Reaction Status Date / Time Penicillins Allergy Rash Verified 08/27/23 20:05 Active Medications: Current Medications Carbidopa/Levodopa (Carbidopa/Levodopa Cr 25/100 Tablet.Er) 1 tab PO TID [facility] Last Admin: 09/09/23 20:02 Dose: 1 tab Donepezil HCl (Donepezil Hcl 10 Mg Tablet) 10 mg PO BEDTIME [facility] Last Admin: 09/09/23 20:02 Dose: 10 mg Escitalopram Oxalate (Escitalopram Oxalate 20 Mg Tablet) 20 mg PO BEDTIME [facility] Last Admin: 09/09/23 20:03 Dose: 20 mg Gabapentin (Gabapentin 300 Mg Capsule) 300 mg PO TID [facility] Last Admin: 09/09/23 20:02 Dose: 300 mg Melatonin (Melatonin 3 Mg Tablet) 9 mg PO BEDTIME [facility] Last Admin: 09/09/23 20:02 Dose: 9 mg Prazosin HCl (Prazosin Hcl 1 Mg Capsule) 1 mg PO BID [facility]; Protocol Last Admin: 09/09/23 20:03 Dose: 1 mg Risperidone (Risperidone 0.5 Mg Tablet) 0.5 mg PO BID [facility] Last Admin: 09/09/23 20:03 Dose: 0.5 mg Home Medications Medication Instructions Recorded Confirmed Last Taken Type carbidopa ER 25 mg-levodopa 100 mg 1 tab PO TID 08/27/23 08/27/23 08/27/23 History tablet,extended release donepezil 5 mg tablet 5 mg PO BEDTIME 08/27/23 08/27/23 08/26/23 History escitalopram oxalate 20 mg tablet 20 mg PO BEDTIME 08/27/23 08/27/23 08/26/23 History gabapentin 300 mg capsule 300 mg PO TID 08/27/23 08/27/23 08/27/23 History melatonin 10 mg tablet 10 mg PO BEDTIME Insomnia 08/27/23 08/27/23 08/26/23 History prazosin 1 mg capsule 1 mg PO BID 08/27/23 08/27/23 08/27/23 History risperidone 0.5 mg tablet 0.5 mg PO BID 08/27/23 08/27/23 08/27/23 History zolpidem 5 mg tablet 5 mg PO BEDTIME 08/27/23 08/27/23 08/26/23 History Physical Exam 2 Vital Signs and Narrative: Vital Signs: Last Vital Signs Temp 98.4 F 09/09/23 20:34 Pulse 89 09/09/23 20:34 Resp 18 09/09/23 20:34 BP 149/88 H 09/09/23 20:34 Pulse Ox 93 09/09/23 20:34 O2 Del Method Room Air 09/09/23 20:34 BMI result Body Mass Index 32.9 Deferred as patient is sleeping and do not want to arouse given history of agitation and aggressive behavior especially at night. Patient is sleeping comfortably in no acute distress. Results Labs 08/27/23 20:44 08/27/23 20:44 Assessment and Plan (1) Lewy body dementia: Status: Acute Plan Pt is a 58-year-old male with a PMH significant for?Lewy body dementia, tremors, and depression who initially presented to the ED on 08/27 2023 for evaluation increasing agitation. Patient initially placed in overflow under physician observation while awaiting long-term care/dementia unit placement. No beds are available at this time. Patient will be admitted to the hospital floor for further care while awaiting placement. Delete body dementia Continue donepezil Tremors/parkinsonism Continue carbidopa levodopa Mood disorder Continue escitalopram, prazosin, risperidone Insomnia Continue melatonin, zolpidem Full Code Attending:?Dr. Ramsey DVT Prophylaxis: Lovenox Pt will require a hospitalization of at least two nights for treatment of?worsening Lewy body dementia with increasing agitation and aggression. Patient requires hospitalized care while awaiting placement in long- term/dementia unit as family is unable to safely care for him at home. Quality Stroke Does the patient have a stroke diagnosis?: No VTE Prior VTE?: No VTE Risk Level:: Medical - moderate - high VTE Device Contraindication: Treatment Not Indicated VTE Drug Contraindication: N/A - Med Ordered
--- NOTE | 2023-09-09 22:49 | PC.NURSE ---
pt now being admitted to medsur floor for placement. reached out to Ruth YE in regards to IV order as medically not necessary. PA spoke with scrap charger on S3 who stated it is a requirement to have access if on s3 floor. Ruth YE stated can hold off until pt has bed assignment. at this time pt is sleeping in bed comfortably resp even and unlabored. video monitor on. call ulloa within reach.
[2023-09-10 00:39] VITALS: BP 139/69; PULSE 81; RESP 16; TEMP 36.2; O2SAT 93
[2023-09-10] MEDS: Enoxaparin Sodium 40 MG/0.4 ML SYRINGE SUBCUT (01:34)
[2023-09-10] MEDS: 0.9 % Sodium Chloride Flush 3 ML SYRINGE IVFLUSH ×3 (01:34→14:37)
[2023-09-10 06:53] LABS: Hemoglobin 13.8 g/dl (14.0-18.0); Mean Corpuscular HGB Conc 32.9 g/dl (31.0-36.0); Mean Corpuscular Hemoglobin 29.9 pg (27.0-33.0); Mean Corpuscular Volume 91.1 fL (80.0-98.0); Red Blood Count 4.61 X10*6/uL (4.60-5.80); Red Cell Distribution Width 12.9 % (11.0-16.0); White Blood Count 9.6 X10*3/uL (4.8-10.8)
[2023-09-10 07:08] LABS: Anion Gap 16 (12-20); Blood Urea Nitrogen 20 mg/dL (9-16); Calcium 9.1 mg/dL (8.4-10.2); Carbon Dioxide 24 mmol/L (22-29); Chloride 107 mmol/L (96-108); Creatinine Clr Calc Pharmacy 107.8; Estimated Glomerular Filt Rate > 60; Glucose Random 92 mg/dL (60-115); Potassium 3.6 mmol/L (3.3-5.1); Sodium 143 mmol/L (135-145)
[2023-09-10 07:23] LABS: Platelet Count 145 X10*3/uL (160-400)
[2023-09-10 07:33] VITALS: BP 138/93; PULSE 74; RESP 18; TEMP 36.4; O2SAT 93
[2023-09-10] MEDS: Prazosin HCL 1 MG CAPSULE PO ×2 (09:08→20:23)
[2023-09-10] MEDS: Gabapentin 300 MG CAPSULE PO ×3 (09:08→20:23)
[2023-09-10] MEDS: risperiDONE 0.5 MG TABLET PO ×2 (09:08→20:23)
[2023-09-10] MEDS: Carbidopa/Levodopa CR 25/100 TABLET.ER 1 TAB PO ×3 (09:26→20:23)
--- NOTE | 2023-09-10 11:03 | HO.PM.IMPN ---
Subjective Subjective Date of Service: 09/10/23 Interval History: f/u conusion, agression Physical Exam Vital Signs: Vital Signs: Last Vital Signs Temp 97.6 F 09/10/23 07:33 Pulse 74 09/10/23 07:33 Resp 18 09/10/23 07:33 BP 138/93 H 09/10/23 07:33 Pulse Ox 93 09/10/23 07:33 O2 Del Method Room Air 09/10/23 07:33 BMI result Body Mass Index 32.9 Const: Other: General: Alert, no acute distress, cooperative Resp: CTA bilateral CVS: S1,S2,RRR GI: +BS, NT, no distention Skin: No rash Neuro: motor grossly intact Psych: appropriate affect Objective Data Active Medications Acetaminophen (Acetaminophen 325 Mg Tablet) 650 mg PO Q6H PRN PRN Reason: Pain, Mild (Pain Scale 1-3) Benzonatate (Benzonatate 100 Mg Capsule) 100 mg PO TID PRN PRN Reason: Cough Carbidopa/Levodopa (Carbidopa/Levodopa Cr 25/100 Tablet.Er) 1 tab PO TID [facility] Last Admin: 09/10/23 09:26 Dose: 1 tab Documented By: ANDREA Docusate Sodium (Docusate Sodium 100 Mg Capsule) 100 mg PO DAILY PRN PRN Reason: Constipation Donepezil HCl (Donepezil Hcl 10 Mg Tablet) 10 mg PO BEDTIME [facility] Last Admin: 09/09/23 20:02 Dose: 10 mg Documented By: JUAN Enoxaparin Sodium (Enoxaparin Sodium 40 Mg/0.4 Ml Syringe) 40 mg SUBCUT Q24H [facility] Last Admin: 09/10/23 01:34 Dose: 40 mg Documented By: MEME Escitalopram Oxalate (Escitalopram Oxalate 20 Mg Tablet) 20 mg PO BEDTIME [facility] Last Admin: 09/09/23 20:03 Dose: 20 mg Documented By: JUAN Gabapentin (Gabapentin 300 Mg Capsule) 300 mg PO TID [facility] Last Admin: 09/10/23 09:08 Dose: 300 mg Documented By: ANDREA Melatonin (Melatonin 3 Mg Tablet) 9 mg PO BEDTIME [facility] Last Admin: 09/09/23 20:02 Dose: 9 mg Documented By: JUAN Prazosin HCl (Prazosin Hcl 1 Mg Capsule) 1 mg PO BID [facility]; Protocol Last Admin: 09/10/23 09:08 Dose: 1 mg Documented By: ANDREA Risperidone (Risperidone 0.5 Mg Tablet) 0.5 mg PO BID [facility] Last Admin: 09/10/23 09:08 Dose: 0.5 mg Documented By: ANDREA Sodium Chloride (0.9 % Sodium Chloride Flush 3 Ml Syringe) 3 ml IVFLUSH QSHIFT [facility] Last Admin: 09/10/23 09:10 Dose: 3 ml Documented By: ANDREA Labs 09/10/23 05:29 09/10/23 05:29 Labs: Laboratory Results - last 24 hr 09/10/23 05:29 MCV 91.1 MCH 29.9 MCHC 32.9 RDW 12.9 Plt Count 145 L D MPV 11.0 Absolute Nucleated RBC 0.000 Nucleated RBC % (auto) 0.0 Anion Gap 16 Estim Creat Clear Calc 107.8 Estimated GFR > 60 Random Glucose 92 Calcium 9.1 Assessment and Plan (1) Lewy body dementia: Status: Acute (2) Depressive disorder: Status: Acute Plan Pt is a 58-year-old male with a PMH significant for?Lewy body dementia, tremors, and depression who initially presented to the ED on 08/27 2023 for evaluation increasing agitation. Patient initially placed in overflow under physician observation while awaiting long-term care/dementia unit placement. No beds are available at this time. Patient will be admitted to the hospital floor for further care while awaiting placement. Lewie body dementia Continue donepezil Tremors/parkinsonism Continue carbidopa levodopa Mood disorder Continue escitalopram, prazosin, risperidone Insomnia Continue melatonin, zolpidem Psych consult behavior if he becomes aggresive Full Code Attending:?Dr. Ramsey DVT Prophylaxis: Lovenox Pt will require a hospitalization of at least two nights for treatment of?worsening Lewy body dementia with increasing agitation and aggression. Patient requires hospitalized care while awaiting placement in long-term/dementia unit as family is unable to safely care for him at home. Quality Stroke Does the patient have a stroke diagnosis?: No VTE Prior VTE?: No VTE Risk Level:: Medical - moderate - high VTE Device Contraindication: Treatment Not Indicated VTE Drug Contraindication: N/A - Med Ordered
--- NOTE | 2023-09-10 15:15 | MHC.CM.PN ---
IMM 09/10/23 Male 58 DX Lewy body dementia Patient from home lives w and kids. The family is having difficulty caring for the patient at home. He was admitted to [facility] 09/13/23. He was home until he was brought to [facility], 08/[place]/23. Patient was initially [facility] in the ER. He has been transfered to a room, 358. The information for this note was gathered from the Patient, his EMR and his HCP/Joseph Calderon. Kvng is the 2nd HCP. The patients Alisha is the 1st HCP. She was called 1st; but no answer. Per Kvng The patient does not use an assistive device. He has had a fall with a leg fx in the past. The patient is impulsive and requires supervision and assist for safety 08/03. The DP is LTC. He is admitted for placement. Multiple referrals were sent from the ER. No bed offer received. A new referral was sent to [facility]. T/W spoke with [facility]. Clinical information has been sent. The facilities have declined the patient. A call was placed to [facility]. A was left requesting a return call. The plan is to ask them to readmit the patient to [facility]. DP LTC via [facility]
[2023-09-10 15:34] VITALS: BP 126/78; PULSE 73; RESP 18; TEMP 36.6; O2SAT 94
[2023-09-10 19:58] VITALS: BP 137/83; PULSE 85; RESP 18; TEMP 36.4; O2SAT 95
[2023-09-10] MEDS: Escitalopram Oxalate 20 MG TABLET PO (20:23)
[2023-09-10] MEDS: Melatonin 3 MG TABLET 9 MG PO (20:23)
[2023-09-10] MEDS: Donepezil HCl 10 MG TABLET PO (20:23)
[2023-09-10 23:58] VITALS: BP 111/66; PULSE 73; RESP 16; TEMP 36.4; O2SAT 94
[2023-09-11] MEDS: Enoxaparin Sodium 40 MG/0.4 ML SYRINGE SUBCUT ×2 (00:12→22:59)
[2023-09-11] MEDS: 0.9 % Sodium Chloride Flush 3 ML SYRINGE IVFLUSH ×4 (00:13→19:44)
[2023-09-11 07:33] VITALS: BP 119/88; PULSE 90; RESP 18; TEMP 36.1; O2SAT 91
[2023-09-11] MEDS: Gabapentin 300 MG CAPSULE PO ×3 (08:15→19:45)
[2023-09-11] MEDS: risperiDONE 0.5 MG TABLET PO ×2 (08:15→19:45)
[2023-09-11] MEDS: Prazosin HCL 1 MG CAPSULE PO ×2 (08:15→19:44)
[2023-09-11] MEDS: Carbidopa/Levodopa CR 25/100 TABLET.ER 1 TAB PO ×3 (08:15→19:44)
--- NOTE | 2023-09-11 08:16 | HO.PM.IMPN ---
Subjective Subjective Date of Service: 09/11/23 Interval History: f/u confusion. Patient is awake but confused at the time of my evaluation. Review of Systems Patient not oriented and hence unable to obtain Review of Systems: Yes Unobtainable due to mental condition and Unobtainable due to mental status Physical Exam Vital Signs: Vital Signs: Last Vital Signs Temp 96.9 F 09/11/23 07:33 Pulse 90 09/11/23 07:33 Resp 18 09/11/23 07:33 BP 119/88 09/11/23 07:33 Pulse Ox 91 L 09/11/23 07:33 O2 Del Method Room Air 09/11/23 07:33 BMI result Body Mass Index 32.9 Const: Other: General: Alert, no acute distress, cooperative Resp: CTA bilateral CVS: S1,S2,RRR GI: +BS, NT, no distention Skin: No rash Neuro: Awake but disoriented to place, person. motor grossly intact Psych: appropriate affect Objective Data Active Medications Acetaminophen (Acetaminophen 325 Mg Tablet) 650 mg PO Q6H PRN PRN Reason: Pain, Mild (Pain Scale 1-3) Benzonatate (Benzonatate 100 Mg Capsule) 100 mg PO TID PRN PRN Reason: Cough Carbidopa/Levodopa (Carbidopa/Levodopa Cr 25/100 Tablet.Er) 1 tab PO TID [facility] Last Admin: 09/10/23 20:23 Dose: 1 tab Documented By: MEME Docusate Sodium (Docusate Sodium 100 Mg Capsule) 100 mg PO DAILY PRN PRN Reason: Constipation Donepezil HCl (Donepezil Hcl 10 Mg Tablet) 10 mg PO BEDTIME [facility] Last Admin: 09/10/23 20:23 Dose: 10 mg Documented By: MEME Enoxaparin Sodium (Enoxaparin Sodium 40 Mg/0.4 Ml Syringe) 40 mg SUBCUT Q24H [facility] Last Admin: 09/11/23 00:12 Dose: 40 mg Documented By: MEME Escitalopram Oxalate (Escitalopram Oxalate 20 Mg Tablet) 20 mg PO BEDTIME [facility] Last Admin: 09/10/23 20:23 Dose: 20 mg Documented By: MEME Gabapentin (Gabapentin 300 Mg Capsule) 300 mg PO TID [facility] Last Admin: 09/10/23 20:23 Dose: 300 mg Documented By: MEME Melatonin (Melatonin 3 Mg Tablet) 9 mg PO BEDTIME [facility] Last Admin: 09/10/23 20:23 Dose: 9 mg Documented By: MEME Prazosin HCl (Prazosin Hcl 1 Mg Capsule) 1 mg PO BID [facility]; Protocol Last Admin: 09/10/23 20:23 Dose: 1 mg Documented By: MEME Risperidone (Risperidone 0.5 Mg Tablet) 0.5 mg PO BID [facility] Last Admin: 09/10/23 20:23 Dose: 0.5 mg Documented By: MEME Sodium Chloride (0.9 % Sodium Chloride Flush 3 Ml Syringe) 3 ml IVFLUSH QSHIFT [facility] Last Admin: 09/11/23 00:13 Dose: 3 ml Documented By: MEME Labs 09/10/23 05:29 09/10/23 05:29 Assessment and Plan (1) Lewy body dementia: Status: Acute (2) Depressive disorder: Status: Acute Plan Pt is a 58-year-old male with a PMH significant for?Lewy body dementia, tremors, and depression who initially presented to the ED on 08/27 2023 for evaluation increasing agitation. Patient initially placed in overflow under physician observation while awaiting long-term care/dementia unit placement. No beds are available at this time. Patient will be admitted to the hospital floor for further care while awaiting placement. Worsening agitation Likely in the setting of underlying worsening dementia and mood disorder. Psych evaluation pending. Obtaining TSH, B12 and folate. Care team consulted Lewy body dementia Continue donepezil Tremors/parkinsonism Continue carbidopa levodopa Mood disorder Continue escitalopram, prazosin, risperidone. Insomnia Continue melatonin, zolpidem Full Code DVT Prophylaxis: Lovenox Reason for continued hospitalization: Awaiting placement in long-term/dementia unit as family is unable to safely care for him at home. Quality Stroke Does the patient have a stroke diagnosis?: No VTE Prior VTE?: No VTE Risk Level:: Medical - moderate - high VTE Device Contraindication: Treatment Not Indicated VTE Drug Contraindication: N/A - Med Ordered
[2023-09-11 09:48] LABS: Thyroid Stimulating Hormone 2.76 uIU/mL (0.32-4.0)
[2023-09-11 10:51] LABS: Folate 7.3 ng/mL (> or = 4.0); Vitamin B12 329 pg/mL (200-900)
[2023-09-11 15:32] VITALS: BP 136/61; PULSE 91; RESP 18; TEMP 36.2; O2SAT 93
[2023-09-11 19:39] VITALS: BP 122/84; PULSE 90; RESP 18; TEMP 36.7; O2SAT 92
[2023-09-11] MEDS: Escitalopram Oxalate 20 MG TABLET PO (19:44)
[2023-09-11] MEDS: Melatonin 3 MG TABLET 9 MG PO (19:45)
[2023-09-11] MEDS: Donepezil HCl 10 MG TABLET PO (19:46)
[2023-09-11] MEDS: Zolpidem Tartrate 5 MG TABLET PO (19:46)
[2023-09-11 19:47] VITALS: BP 122/84; PULSE 90; RESP 18; TEMP 36.7; O2SAT 92
[2023-09-12 04:00] VITALS: BP 117/70; PULSE 65; RESP 16; TEMP 36.6; O2SAT 94
[2023-09-12 07:20] VITALS: BP 149/83; PULSE 72; RESP 18; TEMP 36.1; O2SAT 93
[2023-09-12] MEDS: Prazosin HCL 1 MG CAPSULE PO ×2 (08:08→19:38)
[2023-09-12] MEDS: 0.9 % Sodium Chloride Flush 3 ML SYRINGE IVFLUSH ×3 (08:08→19:38)
[2023-09-12] MEDS: Gabapentin 300 MG CAPSULE PO ×3 (08:08→19:38)
[2023-09-12] MEDS: risperiDONE 0.5 MG TABLET PO ×2 (08:08→19:38)
[2023-09-12] MEDS: Carbidopa/Levodopa CR 25/100 TABLET.ER 1 TAB PO ×3 (08:08→19:37)
--- NOTE | 2023-09-12 11:12 | P.PNIM_ITS ---
Subjective Subjective Date of Service: 09/12/23 Interval History: No acute issues overnight. Review of Systems Unable to obtain Physical Exam 2 Vital Signs: Vital Signs: Last Vital Signs Temp 96.9 F 09/12/23 07:20 Pulse 72 09/12/23 07:20 Resp 18 09/12/23 07:20 BP 149/83 H 09/12/23 07:20 Pulse Ox 93 09/12/23 07:20 O2 Del Method Room Air 09/12/23 07:20 BMI result Body Mass Index 32.9 Const: Other: Awake alert no acute distress Resp: Other: Clear to auscultation bilaterally no rales rhonchi or wheezes Cardio: Other: No S4; positive S1-S2; S3 murmurs rubs or gallops GI: Other: Soft nontender nondistended normoactive bowel sounds Extrem: Other: No edema bilaterally Objective Data Active Medications Acetaminophen (Acetaminophen 325 Mg Tablet) 650 mg PO Q6H PRN PRN Reason: Pain, Mild (Pain Scale 1-3) Benzonatate (Benzonatate 100 Mg Capsule) 100 mg PO TID PRN PRN Reason: Cough Carbidopa/Levodopa (Carbidopa/Levodopa Cr 25/100 Tablet.Er) 1 tab PO TID [facility] Last Admin: 09/12/23 08:08 Dose: 1 tab Documented By: FRANCES Docusate Sodium (Docusate Sodium 100 Mg Capsule) 100 mg PO DAILY PRN PRN Reason: Constipation Donepezil HCl (Donepezil Hcl 10 Mg Tablet) 10 mg PO BEDTIME [facility] Last Admin: 09/11/23 19:46 Dose: 10 mg Documented By: BALJIT Enoxaparin Sodium (Enoxaparin Sodium 40 Mg/0.4 Ml Syringe) 40 mg SUBCUT Q24H [facility] Last Admin: 09/11/23 22:59 Dose: 40 mg Documented By: BALJIT Escitalopram Oxalate (Escitalopram Oxalate 20 Mg Tablet) 20 mg PO BEDTIME [facility] Last Admin: 09/11/23 19:44 Dose: 20 mg Documented By: BALJIT Gabapentin (Gabapentin 300 Mg Capsule) 300 mg PO TID [facility] Last Admin: 09/12/23 08:08 Dose: 300 mg Documented By: FRANCES Melatonin (Melatonin 3 Mg Tablet) 9 mg PO BEDTIME [facility] Last Admin: 09/11/23 19:45 Dose: 9 mg Documented By: BALJIT Prazosin HCl (Prazosin Hcl 1 Mg Capsule) 1 mg PO BID [facility]; Protocol Last Admin: 09/12/23 08:08 Dose: 1 mg Documented By: FRANCES Risperidone (Risperidone 0.5 Mg Tablet) 0.5 mg PO BID [facility] Last Admin: 09/12/23 08:08 Dose: 0.5 mg Documented By: FRANCES Sodium Chloride (0.9 % Sodium Chloride Flush 3 Ml Syringe) 3 ml IVFLUSH QSHIFT [facility] Last Admin: 09/12/23 08:08 Dose: 3 ml Documented By: FRANCES Zolpidem Tartrate (Zolpidem Tartrate 5 Mg Tablet) 5 mg PO BEDTIME [facility] Last Admin: 09/11/23 19:46 Dose: 5 mg Documented By: BALJIT Labs 09/10/23 05:29 09/10/23 05:29 Assessment and Plan (1) Lewy body dementia: Status: Acute Plan Pt is a 58-year-old male with a PMH significant for?Lewy body dementia, tremors, and depression who initially presented to the ED on 08/27 2023 for evaluation increasing agitation. Patient initially placed in overflow under physician observation while awaiting long-term care/dementia unit placement. No beds are available at this time. Patient will be admitted to the hospital floor for further care while awaiting placement. 1.Worsening agitation -no events overnight -Likely in the setting of underlying worsening dementia and mood disorder -Psych evaluation pending. - TSH, B12 and folate normal 2.Lewy body dementia -donepezil -further therapies as clinically relevant 3.Tremors/parkinsonism -at baseline -continue carbidopa levodopa 4.Mood disorder -Continue escitalopram, prazosin, risperidone. Full Code DVT Prophylaxis: Lovenox Reason for continued hospitalization: Awaiting placement in long-term/dementia unit as family is unable to safely care for him at home. Quality Stroke Does the patient have a stroke diagnosis?: No VTE Prior VTE?: No VTE Risk Level:: Medical - moderate - high VTE Device Contraindication: Treatment Not Indicated VTE Drug Contraindication: N/A - Med Ordered
[2023-09-12 15:58] VITALS: BP 136/78; PULSE 85; RESP 19; TEMP 36.4; O2SAT 93
[2023-09-12] MEDS: Zolpidem Tartrate 5 MG TABLET PO (19:37)
[2023-09-12] MEDS: Melatonin 3 MG TABLET 9 MG PO (19:37)
[2023-09-12] MEDS: Escitalopram Oxalate 20 MG TABLET PO (19:38)
[2023-09-12] MEDS: Donepezil HCl 10 MG TABLET PO (19:38)
[2023-09-12 20:00] VITALS: BP 130/78; PULSE 68; RESP 18; TEMP 36.2; O2SAT 94
[2023-09-12] MEDS: Enoxaparin Sodium 40 MG/0.4 ML SYRINGE SUBCUT (22:29)
[2023-09-13 03:04] VITALS: BP 131/78; PULSE 82; RESP 18; TEMP 36.6; O2SAT 94
[2023-09-13 06:03] LABS: MANUAL DIFF FLAG NO
[2023-09-13 06:16] LABS: Basophils Absolute Auto 0.1 X10*3/uL (0.0-0.2); Basophils Percent Auto 0.6 % (0-2); Eosinophils Absolute Auto 0.2 X10*3/uL (0.0-0.4); Eosinophils Percent Auto 1.9 % (0-4); Hematocrit 41.9 % (42.0-52.0); Imm Gran Abs Auto 0.08 X10*3/uL (0.00-0.03); Lymphocytes Absolute Auto 1.9 X10*3/uL (1.2-4.9); Lymphocytes Percent Auto 22.2 % (20-40); Mean Corpuscular HGB Conc 33.4 g/dl (31.0-36.0); Mean Corpuscular Hemoglobin 30.9 pg (27.0-33.0); Mean Corpuscular Volume 92.5 fL (80.0-98.0); Mean Platelet Volume 11.1 fL (9.4-12.4); Monocytes Absolute Auto 0.7 X10*3/uL (0.1-1.2); Monocytes Percent Auto 8.3 % (2-11); Neutrophils Absolute Auto 5.5 x10*3/uL (2.0-8.3); Platelet Count 148 X10*3/uL (160-400); Red Blood Count 4.53 X10*6/uL (4.60-5.80); Red Cell Distribution Width 12.9 % (11.0-16.0); White Blood Count 8.3 X10*3/uL (4.8-10.8)
[2023-09-13 06:30] LABS: Alanine Aminotransferase 5 U/L (0-40); Albumin Level 3.7 g/dL (3.5-5.0); Alkaline Phosphatase 75 U/L (39-117); Anion Gap 15 (12-20); Aspartate Amino Transferase 22 U/L (5-37); Bilirubin Total 0.4 mg/dL (0.0-1.0); Blood Urea Nitrogen 23 mg/dL (9-16); Calcium 9.1 mg/dL (8.4-10.2); Carbon Dioxide 23 mmol/L (22-29); Chloride 107 mmol/L (96-108); Creatinine Clr Calc Pharmacy 112.9; Estimated Glomerular Filt Rate > 60; Glucose Fasting 104 mg/dL (60-99); Potassium 3.6 mmol/L (3.3-5.1); Sodium 141 mmol/L (135-145); Total Protein 6.4 g/dL (6.5-8.0)
[2023-09-13 07:43] VITALS: BP 129/83; PULSE 75; RESP 16; TEMP 36.3; O2SAT 94
[2023-09-13] MEDS: Prazosin HCL 1 MG CAPSULE PO ×2 (07:51→20:06)
[2023-09-13] MEDS: Carbidopa/Levodopa CR 25/100 TABLET.ER 1 TAB PO ×3 (07:51→20:06)
[2023-09-13] MEDS: 0.9 % Sodium Chloride Flush 3 ML SYRINGE IVFLUSH ×3 (07:51→20:06)
[2023-09-13] MEDS: risperiDONE 0.5 MG TABLET PO ×2 (07:51→20:06)
[2023-09-13] MEDS: Gabapentin 300 MG CAPSULE PO ×3 (07:51→20:06)
--- NOTE | 2023-09-13 11:42 | P.PNIM_ITS ---
Subjective Subjective Date of Service: 09/13/23 Interval History: No acute issues overnight. No agitated behavior noted Review of Systems Unable to obtain Physical Exam 2 Vital Signs: Vital Signs: Last Vital Signs Temp 97.4 F 09/13/23 07:43 Pulse 75 09/13/23 07:43 Resp 16 09/13/23 07:43 BP 129/83 09/13/23 07:43 Pulse Ox 94 09/13/23 07:43 O2 Del Method Room Air 09/13/23 07:43 BMI result Body Mass Index 32.9 Const: Other: Awake alert no acute distress Resp: Other: Clear to auscultation bilaterally no rales rhonchi or wheezes Cardio: Other: No S4; positive S1-S2; S3 murmurs rubs or gallops GI: Other: Soft nontender nondistended normoactive bowel sounds Extrem: Other: No edema bilaterally Objective Data Active Medications Acetaminophen (Acetaminophen 325 Mg Tablet) 650 mg PO Q6H PRN PRN Reason: Pain, Mild (Pain Scale 1-3) Benzonatate (Benzonatate 100 Mg Capsule) 100 mg PO TID PRN PRN Reason: Cough Carbidopa/Levodopa (Carbidopa/Levodopa Cr 25/100 Tablet.Er) 1 tab PO TID [facility] Last Admin: 09/13/23 07:51 Dose: 1 tab Documented By: CHEO Docusate Sodium (Docusate Sodium 100 Mg Capsule) 100 mg PO DAILY PRN PRN Reason: Constipation Donepezil HCl (Donepezil Hcl 10 Mg Tablet) 10 mg PO BEDTIME [facility] Last Admin: 09/12/23 19:38 Dose: 10 mg Documented By: TRINIDAD Enoxaparin Sodium (Enoxaparin Sodium 40 Mg/0.4 Ml Syringe) 40 mg SUBCUT Q24H [facility] Last Admin: 09/12/23 22:29 Dose: 40 mg Documented By: TRINIDAD Escitalopram Oxalate (Escitalopram Oxalate 20 Mg Tablet) 20 mg PO BEDTIME [facility] Last Admin: 09/12/23 19:38 Dose: 20 mg Documented By: TRINIDAD Gabapentin (Gabapentin 300 Mg Capsule) 300 mg PO TID [facility] Last Admin: 09/13/23 07:51 Dose: 300 mg Documented By: CHEO Melatonin (Melatonin 3 Mg Tablet) 9 mg PO BEDTIME [facility] Last Admin: 09/12/23 19:37 Dose: 9 mg Documented By: TRINIDAD Prazosin HCl (Prazosin Hcl 1 Mg Capsule) 1 mg PO BID [facility]; Protocol Last Admin: 09/13/23 07:51 Dose: 1 mg Documented By: CHEO Risperidone (Risperidone 0.5 Mg Tablet) 0.5 mg PO BID [facility] Last Admin: 09/13/23 07:51 Dose: 0.5 mg Documented By: CHEO Sodium Chloride (0.9 % Sodium Chloride Flush 3 Ml Syringe) 3 ml IVFLUSH QSHIFT [facility] Last Admin: 09/13/23 07:51 Dose: 3 ml Documented By: CHEO Zolpidem Tartrate (Zolpidem Tartrate 5 Mg Tablet) 5 mg PO BEDTIME [facility] Last Admin: 09/12/23 19:37 Dose: 5 mg Documented By: TRINIDAD Labs 09/13/23 05:33 09/13/23 05:33 Labs: Laboratory Results - last 24 hr 09/13/23 05:33 MCV 92.5 MCH 30.9 MCHC 33.4 RDW 12.9 Plt Count 148 L MPV 11.1 Immature Gran % (Auto) 1.0 H Neut % (Auto) 66.0 Lymph % (Auto) 22.2 Stark % (Auto) 8.3 Eos % (Auto) 1.9 Baso % (Auto) 0.6 Lymph # (Auto) 1.9 Stark # (Auto) 0.7 Eos # (Auto) 0.2 Baso # (Auto) 0.1 Abs Immat Gran (auto) 0.08 H Absolute Neuts (auto) 5.5 Absolute Nucleated RBC 0.000 Nucleated RBC % (auto) 0.0 Anion Gap 15 Estim Creat Clear Calc 112.9 Estimated GFR > 60 Fasting Glucose 104 H Calcium 9.1 Total Bilirubin 0.4 AST 22 ALT 5 Alkaline Phosphatase 75 Total Protein 6.4 L Albumin 3.7 Assessment and Plan (1) Lewy body dementia: Status: Acute Plan Pt is a 58-year-old male with a PMH significant for?Lewy body dementia, tremors, and depression who initially presented to the ED on 08/27 2023 for evaluation increasing agitation. Patient initially placed in overflow under physician observation while awaiting long-term care/dementia unit placement. No beds are available at this time. Patient will be admitted to the hospital floor for further care while awaiting placement. 1.Worsening agitation -no events overnight... Remains cooperative -Likely in the setting of underlying worsening dementia and mood disorder -TSH, B12 and folate normal 2.Lewy body dementia -donepezil -further therapies as clinically relevant 3.Tremors/parkinsonism -at baseline -continue carbidopa levodopa 4.Mood disorder -Continue escitalopram, prazosin, risperidone. Full Code DVT Prophylaxis: Lovenox Reason for continued hospitalization: Awaiting placement in long-term/dementia unit as family is unable to safely care for him at home. Quality Stroke Does the patient have a stroke diagnosis?: No VTE Prior VTE?: No VTE Risk Level:: Medical - moderate - high VTE Device Contraindication: Treatment Not Indicated VTE Drug Contraindication: N/A - Med Ordered
[2023-09-13 15:43] VITALS: BP 131/75; PULSE 85; RESP 18; TEMP 36.8; O2SAT 93
[2023-09-13 19:53] VITALS: BP 136/97; PULSE 88; RESP 18; TEMP 36; O2SAT 93
[2023-09-13] MEDS: Zolpidem Tartrate 5 MG TABLET PO (20:06)
[2023-09-13] MEDS: Donepezil HCl 10 MG TABLET PO (20:06)
[2023-09-13] MEDS: Melatonin 3 MG TABLET 9 MG PO (20:06)
[2023-09-13] MEDS: Escitalopram Oxalate 20 MG TABLET PO (20:06)
[2023-09-13] MEDS: Enoxaparin Sodium 40 MG/0.4 ML SYRINGE SUBCUT (20:13)
[2023-09-14 03:37] VITALS: BP 111/72; PULSE 65; RESP 16; TEMP 36.2; O2SAT 94
[2023-09-14 07:45] VITALS: BP 130/89; PULSE 71; RESP 18; TEMP 36.7; O2SAT 93
[2023-09-14] MEDS: Carbidopa/Levodopa CR 25/100 TABLET.ER 1 TAB PO ×3 (09:22→19:59)
[2023-09-14] MEDS: 0.9 % Sodium Chloride Flush 3 ML SYRINGE IVFLUSH ×3 (09:22→20:00)
[2023-09-14] MEDS: risperiDONE 0.5 MG TABLET PO ×2 (09:22→19:59)
[2023-09-14] MEDS: Gabapentin 300 MG CAPSULE PO ×3 (09:22→19:58)
[2023-09-14] MEDS: Prazosin HCL 1 MG CAPSULE PO ×2 (09:22→19:59)
--- NOTE | 2023-09-14 11:51 | HO.PM.IMPN ---
Subjective Subjective Date of Service: 09/14/23 Interval History: No acute changes overnight. Remains cooperative Review of Systems Unable to obtain Physical Exam Vital Signs: Vital Signs: Last Vital Signs Temp 98.1 F 09/14/23 07:45 Pulse 71 09/14/23 07:45 Resp 18 09/14/23 07:45 BP 130/89 09/14/23 07:45 Pulse Ox 93 09/14/23 07:45 O2 Del Method Room Air 09/14/23 07:45 BMI result Body Mass Index 32.9 Const: Other: Awake alert no acute distress Resp: Other: Clear to auscultation bilaterally no rales rhonchi or wheezes Cardio: Other: No S4; positive S1-S2; S3 murmurs rubs or gallops GI: Other: Soft nontender nondistended normoactive bowel sounds Extrem: Other: No edema bilaterally Objective Data Active Medications Acetaminophen (Acetaminophen 325 Mg Tablet) 650 mg PO Q6H PRN PRN Reason: Pain, Mild (Pain Scale 1-3) Benzonatate (Benzonatate 100 Mg Capsule) 100 mg PO TID PRN PRN Reason: Cough Carbidopa/Levodopa (Carbidopa/Levodopa Cr 25/100 Tablet.Er) 1 tab PO TID [facility] Last Admin: 09/14/23 09:22 Dose: 1 tab Documented By: CHEO Docusate Sodium (Docusate Sodium 100 Mg Capsule) 100 mg PO DAILY PRN PRN Reason: Constipation Donepezil HCl (Donepezil Hcl 10 Mg Tablet) 10 mg PO BEDTIME [facility] Last Admin: 09/13/23 20:06 Dose: 10 mg Documented By: TRINIDAD Enoxaparin Sodium (Enoxaparin Sodium 40 Mg/0.4 Ml Syringe) 40 mg SUBCUT Q24H [facility] Last Admin: 09/13/23 20:13 Dose: 40 mg Documented By: TRINIDAD Escitalopram Oxalate (Escitalopram Oxalate 20 Mg Tablet) 20 mg PO BEDTIME [facility] Last Admin: 09/13/23 20:06 Dose: 20 mg Documented By: TRINIDAD Gabapentin (Gabapentin 300 Mg Capsule) 300 mg PO TID [facility] Last Admin: 09/14/23 09:22 Dose: 300 mg Documented By: CHEO Melatonin (Melatonin 3 Mg Tablet) 9 mg PO BEDTIME [facility] Last Admin: 09/13/23 20:06 Dose: 9 mg Documented By: TRINIDAD Prazosin HCl (Prazosin Hcl 1 Mg Capsule) 1 mg PO BID [facility]; Protocol Last Admin: 09/14/23 09:22 Dose: 1 mg Documented By: CHEO Risperidone (Risperidone 0.5 Mg Tablet) 0.5 mg PO BID [facility] Last Admin: 09/14/23 09:22 Dose: 0.5 mg Documented By: CHEO Sodium Chloride (0.9 % Sodium Chloride Flush 3 Ml Syringe) 3 ml IVFLUSH QSHIFT [facility] Last Admin: 09/14/23 09:22 Dose: 3 ml Documented By: CHEO Zolpidem Tartrate (Zolpidem Tartrate 5 Mg Tablet) 5 mg PO BEDTIME [facility] Last Admin: 09/13/23 20:06 Dose: 5 mg Documented By: TRINIDAD Labs 09/13/23 05:33 09/13/23 05:33 Assessment and Plan (1) Lewy body dementia: Status: Acute Plan Pt is a 58-year-old male with a PMH significant for?Lewy body dementia, tremors, and depression who initially presented to the ED on 08/27 2023 for evaluation increasing agitation. Patient initially placed in overflow under physician observation while awaiting long-term care/dementia unit placement. No beds are available at this time. Patient will be admitted to the hospital floor for further care while awaiting placement. 1.Worsening agitation -no events overnight... Remains cooperative -Likely in the setting of underlying worsening dementia and mood disorder -TSH, B12 and folate normal 2.Lewy body dementia -donepezil -further therapies as clinically relevant 3.Tremors/parkinsonism -at baseline -continue carbidopa levodopa 4.Mood disorder -Continue escitalopram, prazosin, risperidone. Full Code DVT Prophylaxis: Lovenox Reason for continued hospitalization: Awaiting placement in long-term/dementia unit as family is unable to safely care for him at home. Quality Stroke Does the patient have a stroke diagnosis?: No VTE Prior VTE?: No VTE Risk Level:: Medical - moderate - high VTE Device Contraindication: Treatment Not Indicated VTE Drug Contraindication: N/A - Med Ordered
--- NOTE | 2023-09-14 14:53 | MHC.CM.PN ---
CM received call from Faith Nelson, market relationship manager with [facility]. Faith was requesting update on patient status and will send this CM list of contracted facilities. Faith: [phone]
[2023-09-14 15:09] VITALS: BP 129/78; PULSE 86; RESP 16; TEMP 36.7; O2SAT 94
[2023-09-14 19:18] VITALS: BP 143/82; PULSE 91; RESP 18; TEMP 37.2; O2SAT 98
[2023-09-14] MEDS: Donepezil HCl 10 MG TABLET PO (19:58)
[2023-09-14] MEDS: Escitalopram Oxalate 20 MG TABLET PO (19:58)
[2023-09-14] MEDS: Melatonin 3 MG TABLET 9 MG PO (19:58)
[2023-09-14] MEDS: Zolpidem Tartrate 5 MG TABLET PO (19:59)
[2023-09-14] MEDS: Enoxaparin Sodium 40 MG/0.4 ML SYRINGE SUBCUT (20:03)
[2023-09-15] MEDS: Acetaminophen 325 MG TABLET 650 MG PO (07:22)
[2023-09-15] MEDS: 0.9 % Sodium Chloride Flush 3 ML SYRINGE IVFLUSH ×3 (07:25→20:29)
[2023-09-15 07:51] VITALS: BP 124/74; PULSE 80; RESP 18; TEMP 36.2; O2SAT 92
[2023-09-15] MEDS: Prazosin HCL 1 MG CAPSULE PO ×2 (08:03→20:28)
[2023-09-15] MEDS: Gabapentin 300 MG CAPSULE PO ×3 (08:04→20:28)
[2023-09-15] MEDS: Carbidopa/Levodopa CR 25/100 TABLET.ER 1 TAB PO ×3 (08:04→20:28)
[2023-09-15] MEDS: risperiDONE 0.5 MG TABLET PO ×2 (08:04→20:28)
--- NOTE | 2023-09-15 13:23 | HO.PM.IMPN ---
Subjective Subjective Date of Service: 09/15/23 Interval History: No acute issues overnight. Nurse states mild productive cough Review of Systems Unable to obtain Physical Exam Vital Signs: Vital Signs: Last Vital Signs Temp 97.1 F 09/15/23 07:51 Pulse 80 09/15/23 07:51 Resp 18 09/15/23 07:51 BP 124/74 09/15/23 07:51 Pulse Ox 92 09/15/23 07:51 O2 Del Method Room Air 09/15/23 07:51 BMI result Body Mass Index 32.9 Const: Other: Awake alert no acute distress Resp: Other: Clear to auscultation bilaterally no rales rhonchi or wheezes Cardio: Other: No S4; positive S1-S2; S3 murmurs rubs or gallops GI: Other: Soft nontender nondistended normoactive bowel sounds Extrem: Other: No edema bilaterally Objective Data Active Medications Acetaminophen (Acetaminophen 325 Mg Tablet) 650 mg PO Q6H PRN PRN Reason: Pain, Mild (Pain Scale 1-3) Last Admin: 09/15/23 07:22 Dose: 650 mg Documented By: NAEL Benzonatate (Benzonatate 100 Mg Capsule) 100 mg PO TID PRN PRN Reason: Cough Carbidopa/Levodopa (Carbidopa/Levodopa Cr 25/100 Tablet.Er) 1 tab PO TID [facility] Last Admin: 09/15/23 08:04 Dose: 1 tab Documented By: NAEL Docusate Sodium (Docusate Sodium 100 Mg Capsule) 100 mg PO DAILY PRN PRN Reason: Constipation Donepezil HCl (Donepezil Hcl 10 Mg Tablet) 10 mg PO BEDTIME [facility] Last Admin: 09/14/23 19:58 Dose: 10 mg Documented By: VANE Enoxaparin Sodium (Enoxaparin Sodium 40 Mg/0.4 Ml Syringe) 40 mg SUBCUT Q24H [facility] Last Admin: 09/14/23 20:03 Dose: 40 mg Documented By: VANE Comments: per pt request so pt can sleep Escitalopram Oxalate (Escitalopram Oxalate 20 Mg Tablet) 20 mg PO BEDTIME [facility] Last Admin: 09/14/23 19:58 Dose: 20 mg Documented By: VANE Gabapentin (Gabapentin 300 Mg Capsule) 300 mg PO TID [facility] Last Admin: 09/15/23 08:04 Dose: 300 mg Documented By: NAEL Melatonin (Melatonin 3 Mg Tablet) 9 mg PO BEDTIME [facility] Last Admin: 09/14/23 19:58 Dose: 9 mg Documented By: VANE Prazosin HCl (Prazosin Hcl 1 Mg Capsule) 1 mg PO BID [facility]; Protocol Last Admin: 09/15/23 08:03 Dose: 1 mg Documented By: NAEL Risperidone (Risperidone 0.5 Mg Tablet) 0.5 mg PO BID [facility] Last Admin: 09/15/23 08:04 Dose: 0.5 mg Documented By: NAEL Sodium Chloride (0.9 % Sodium Chloride Flush 3 Ml Syringe) 3 ml IVFLUSH QSHIFT [facility] Last Admin: 09/15/23 07:25 Dose: 3 ml Documented By: NAEL Zolpidem Tartrate (Zolpidem Tartrate 5 Mg Tablet) 5 mg PO BEDTIME [facility] Last Admin: 09/14/23 19:59 Dose: 5 mg Documented By: VANE Labs 09/13/23 05:33 09/13/23 05:33 Assessment and Plan (1) Lewy body dementia: Status: Acute Plan Pt is a 58-year-old male with a PMH significant for?Lewy body dementia, tremors, and depression who initially presented to the ED on 08/27 2023 for evaluation increasing agitation. Patient initially placed in overflow under physician observation while awaiting long-term care/dementia unit placement. No beds are available at this time. Patient will be admitted to the hospital floor for further care while awaiting placement. 1.Worsening agitation -no events overnight... Remains cooperative -Likely in the setting of underlying worsening dementia and mood disorder -TSH, B12 and folate normal 2.Lewy body dementia -donepezil -further therapies as clinically relevant 3.Tremors/parkinsonism -at baseline -continue carbidopa levodopa 4.Mood disorder -Continue escitalopram, prazosin, risperidone. Full Code DVT Prophylaxis: Lovenox Reason for continued hospitalization: Awaiting placement in long-term/dementia unit as family is unable to safely care for him at home. Quality Stroke Does the patient have a stroke diagnosis?: No VTE Prior VTE?: No VTE Risk Level:: Medical - moderate - high VTE Device Contraindication: Treatment Not Indicated VTE Drug Contraindication: N/A - Med Ordered
--- NOTE | 2023-09-15 14:06 | MHC.CM.PN ---
per rounds pt ready for dc bd search in place
[2023-09-15 16:00] VITALS: BP 126/72; PULSE 78; RESP 16; TEMP 36.6; O2SAT 94
[2023-09-15 20:00] VITALS: BP 138/86; PULSE 74; RESP 18; TEMP 36.7; O2SAT 97
[2023-09-15] MEDS: Zolpidem Tartrate 5 MG TABLET PO (20:28)
[2023-09-15] MEDS: Donepezil HCl 10 MG TABLET PO (20:28)
[2023-09-15] MEDS: Melatonin 3 MG TABLET 9 MG PO (20:28)
[2023-09-15] MEDS: Escitalopram Oxalate 20 MG TABLET PO (20:29)
[2023-09-15] MEDS: Enoxaparin Sodium 40 MG/0.4 ML SYRINGE SUBCUT (20:35)
--- NOTE | 2023-09-15 22:10 | PC.NURSE ---
IVline on the left hand due for a change, Ivline removed and cannula was intact, site is asymptomatic, Dr. Jimenes was made aware, Ivline okay for pt with no access after old IVline is removed, no IV med at this point.
[2023-09-16 03:16] VITALS: BP 119/73; PULSE 100; RESP 18; TEMP 36.8; O2SAT 93
[2023-09-16 07:36] VITALS: BP 111/75; PULSE 73; RESP 20; TEMP 36.2; O2SAT 93
[2023-09-16] MEDS: Prazosin HCL 1 MG CAPSULE PO ×2 (08:05→19:53)
[2023-09-16] MEDS: Gabapentin 300 MG CAPSULE PO ×3 (08:05→19:54)
[2023-09-16] MEDS: risperiDONE 0.5 MG TABLET PO ×2 (08:05→19:54)
[2023-09-16] MEDS: Carbidopa/Levodopa CR 25/100 TABLET.ER 1 TAB PO ×3 (08:05→19:54)
[2023-09-16 14:57] VITALS: BP 144/76; PULSE 79; RESP 18; TEMP 36.2; O2SAT 93
--- NOTE | 2023-09-16 15:05 | HO.PM.IMPN ---
Subjective Subjective Date of Service: 09/16/23 Interval History: seen and examined this morning follow up for placement reporting dry cough, no sob Review of Systems Review of Systems: Yes all other systems are reviewed and are negative Cardiovascular Cardiovascular: Denies chest pain Gastrointestinal Gastrointestinal: Denies abdominal pain Physical Exam Vital Signs: Vital Signs: Last Vital Signs Temp 97.2 F 09/16/23 14:57 Pulse 79 09/16/23 14:57 Resp 18 09/16/23 14:57 BP 144/76 H 09/16/23 14:57 Pulse Ox 93 09/16/23 14:57 O2 Del Method Room Air 09/16/23 14:57 BMI result Body Mass Index 32.9 Const: Other: resting in bed comfortably. no acute distress; awake, alert Resp: Effort & Inspection: normal respiratory effort, able to speak in complete sentences, no respiratory distress and no use of accessory muscles Auscultation: clear to auscultation bilaterally Cardio: Rate: regular rate GI: Inspection: No distended Palpation (GI): Soft to palpation Neuro: General: moves all extremities Extrem: General: Yes no pedal edema Psych: Other: flat Objective Data Active Medications Acetaminophen (Acetaminophen 325 Mg Tablet) 650 mg PO Q6H PRN PRN Reason: Pain, Mild (Pain Scale 1-3) Last Admin: 09/15/23 07:22 Dose: 650 mg Documented By: NAEL Benzonatate (Benzonatate 100 Mg Capsule) 100 mg PO TID PRN PRN Reason: Cough Carbidopa/Levodopa (Carbidopa/Levodopa Cr 25/100 Tablet.Er) 1 tab PO TID [facility] Last Admin: 09/16/23 14:52 Dose: 1 tab Documented By: IRAIDA Docusate Sodium (Docusate Sodium 100 Mg Capsule) 100 mg PO DAILY PRN PRN Reason: Constipation Donepezil HCl (Donepezil Hcl 10 Mg Tablet) 10 mg PO BEDTIME [facility] Last Admin: 09/15/23 20:28 Dose: 10 mg Documented By: BALJIT Enoxaparin Sodium (Enoxaparin Sodium 40 Mg/0.4 Ml Syringe) 40 mg SUBCUT Q24H [facility] Last Admin: 09/15/23 20:35 Dose: 40 mg Documented By: BALJIT Escitalopram Oxalate (Escitalopram Oxalate 20 Mg Tablet) 20 mg PO BEDTIME [facility] Last Admin: 09/15/23 20:29 Dose: 20 mg Documented By: BALJIT Gabapentin (Gabapentin 300 Mg Capsule) 300 mg PO TID [facility] Last Admin: 09/16/23 14:52 Dose: 300 mg Documented By: IRAIDA Melatonin (Melatonin 3 Mg Tablet) 9 mg PO BEDTIME [facility] Last Admin: 09/15/23 20:28 Dose: 9 mg Documented By: BALJIT Prazosin HCl (Prazosin Hcl 1 Mg Capsule) 1 mg PO BID [facility]; Protocol Last Admin: 09/16/23 08:05 Dose: 1 mg Documented By: IRAIDA Risperidone (Risperidone 0.5 Mg Tablet) 0.5 mg PO BID [facility] Last Admin: 09/16/23 08:05 Dose: 0.5 mg Documented By: IRAIDA Sodium Chloride (0.9 % Sodium Chloride Flush 3 Ml Syringe) 3 ml IVFLUSH QSHIFT [facility] Last Admin: 09/16/23 15:03 Dose: Not Given Documented By: IRAIDA Non-Admin Reason: No Access Zolpidem Tartrate (Zolpidem Tartrate 5 Mg Tablet) 5 mg PO BEDTIME [facility] Last Admin: 09/15/23 20:28 Dose: 5 mg Documented By: BALJIT Labs 09/13/23 05:33 09/13/23 05:33 Assessment and Plan (1) Lewy body dementia: Status: Acute Plan Pt is a 58-year-old male with a PMH significant for?Lewy body dementia, tremors, and depression who initially presented to the ED on 08/27 2023 for evaluation increasing agitation. Patient initially placed in overflow under physician observation while awaiting long-term care/dementia unit placement. No beds are available at this time. Patient will be admitted to the hospital floor for further care while awaiting placement. Worsening agitation Remains cooperative -Likely in the setting of underlying worsening dementia and mood disorder -TSH, B12 and folate normal Lewy body dementia -donepezil -further therapies as clinically relevant cough cxr negative symptomatic support Tremors/parkinsonism -at baseline -continue carbidopa levodopa Mood disorder -Continue escitalopram, prazosin, risperidone. Full Code DVT Prophylaxis: Lovenox Reason for continued hospitalization: Awaiting placement in long-term/dementia unit as family is unable to safely care for him at home. Quality Stroke Does the patient have a stroke diagnosis?: No VTE Prior VTE?: No VTE Risk Level:: Medical - moderate - high VTE Device Contraindication: Treatment Not Indicated VTE Drug Contraindication: N/A - Med Ordered
[2023-09-16 19:39] VITALS: BP 141/87; PULSE 100; RESP 18; TEMP 36.3; O2SAT 94
[2023-09-16] MEDS: Melatonin 3 MG TABLET 9 MG PO (19:53)
[2023-09-16] MEDS: Zolpidem Tartrate 5 MG TABLET PO (19:54)
[2023-09-16] MEDS: Donepezil HCl 10 MG TABLET PO (19:54)
[2023-09-16] MEDS: Escitalopram Oxalate 20 MG TABLET PO (19:54)
[2023-09-16] MEDS: Enoxaparin Sodium 40 MG/0.4 ML SYRINGE SUBCUT (21:21)
[2023-09-17 03:51] VITALS: BP 110/70; PULSE 73; RESP 16; TEMP 36.3; O2SAT 92
[2023-09-17 07:30] VITALS: BP 122/76; PULSE 73; RESP 18; TEMP 36.6; O2SAT 95
[2023-09-17] MEDS: Gabapentin 300 MG CAPSULE PO ×3 (07:37→19:39)
[2023-09-17] MEDS: Prazosin HCL 1 MG CAPSULE PO ×2 (07:37→19:39)
[2023-09-17] MEDS: Carbidopa/Levodopa CR 25/100 TABLET.ER 1 TAB PO ×3 (07:38→19:39)
[2023-09-17] MEDS: risperiDONE 0.5 MG TABLET PO ×2 (07:38→19:39)
--- NOTE | 2023-09-17 09:19 | PC.NURSE ---
Mr. Tomlin is A&Ox3-4 and cooperative with care. Pt is repetitive with questions but is pleasant and easily redirectable. Pt is able to take pills whole with water, is set up for feed. Pt is 1A with walker up to chair and assist with ADLs. Pt denying pain, all needs met at this time.
--- NOTE | 2023-09-17 10:34 | MHC.CM.PN ---
Addendum entered by Vickie Lu RN 09/17/23 11:18: [facility] omega was submitted 09/15, but patient may not qualify due to assets. LM for Alisha to discuss. Addendum entered by Vickie Lu RN 09/17/23 10:50: Per facility, patient only has [facility] at this time. Requested update from Financial Services on status of MH standard application. Original Note: CM CONTINUES SEARCH FOR LTC. [facility] AND [facility] ARE CONSIDERING. NO FORMAL BED OFFERS AT THIS TIME. CM WILL CONTINUE SEARCH.
--- NOTE | 2023-09-17 10:59 | P.PNIM_ITS ---
Subjective Subjective Date of Service: 09/17/23 Interval History: seen and examined this morning no overnight events no specific complaints Physical Exam 2 Vital Signs: Vital Signs: Last Vital Signs Temp 97.8 F 09/17/23 07:30 Pulse 73 09/17/23 07:30 Resp 18 09/17/23 07:30 BP 122/76 09/17/23 07:30 Pulse Ox 95 09/17/23 07:30 O2 Del Method Room Air 09/17/23 07:30 BMI result Body Mass Index 32.9 Const: Other: resting in bed comfortably. no acute distress; awake, alert Resp: Effort & Inspection: normal respiratory effort, able to speak in complete sentences, no respiratory distress and no use of accessory muscles A uscultation: clear to auscultation bilaterally Cardio: Rate: regular rate GI: Inspection: No distended Palpation (GI): Soft to palpation Neuro: General: moves all extremities Extrem: General: Yes no pedal edema Psych: Other: flat Objective Data Active Medications Acetaminophen (Acetaminophen 325 Mg Tablet) 650 mg PO Q6H PRN PRN Reason: Pain, Mild (Pain Scale 1-3) Last Admin: 09/15/23 07:22 Dose: 650 mg Documented By: NAEL Benzonatate (Benzonatate 100 Mg Capsule) 100 mg PO TID PRN PRN Reason: Cough Carbidopa/Levodopa (Carbidopa/Levodopa Cr 25/100 Tablet.Er) 1 tab PO TID [facility] Last Admin: 09/17/23 07:38 Dose: 1 tab Documented By: DAMIEN Docusate Sodium (Docusate Sodium 100 Mg Capsule) 100 mg PO DAILY PRN PRN Reason: Constipation Donepezil HCl (Donepezil Hcl 10 Mg Tablet) 10 mg PO BEDTIME [facility] Last Admin: 09/16/23 19:54 Dose: 10 mg Documented By: BALJIT Enoxaparin Sodium (Enoxaparin Sodium 40 Mg/0.4 Ml Syringe) 40 mg SUBCUT Q24H [facility] Last Admin: 09/16/23 21:21 Dose: 40 mg Documented By: BALJIT Escitalopram Oxalate (Escitalopram Oxalate 20 Mg Tablet) 20 mg PO BEDTIME [facility] Last Admin: 09/16/23 19:54 Dose: 20 mg Documented By: BAJLIT Gabapentin (Gabapentin 300 Mg Capsule) 300 mg PO TID [facility] Last Admin: 09/17/23 07:37 Dose: 300 mg Documented By: DAMIEN Melatonin (Melatonin 3 Mg Tablet) 9 mg PO BEDTIME [facility] Last Admin: 09/16/23 19:53 Dose: 9 mg Documented By: BALJIT Prazosin HCl (Prazosin Hcl 1 Mg Capsule) 1 mg PO BID [facility]; Protocol Last Admin: 09/17/23 07:37 Dose: 1 mg Documented By: DAMIEN Risperidone (Risperidone 0.5 Mg Tablet) 0.5 mg PO BID [facility] Last Admin: 09/17/23 07:38 Dose: 0.5 mg Documented By: DAMIEN Sodium Chloride (0.9 % Sodium Chloride Flush 3 Ml Syringe) 3 ml IVFLUSH QSHIFT [facility] Last Admin: 09/17/23 07:38 Dose: Not Given Documented By: DAMIEN Non-Admin Reason: no IV access Zolpidem Tartrate (Zolpidem Tartrate 5 Mg Tablet) 5 mg PO BEDTIME [facility] Last Admin: 09/16/23 19:54 Dose: 5 mg Documented By: BALJIT Labs 09/13/23 05:33 09/13/23 05:33 Assessment and Plan (1) Lewy body dementia: Status: Acute Plan Pt is a 58-year-old male with a PMH significant for?Lewy body dementia, tremors, and depression who initially presented to the ED on 08/27 2023 for evaluation increasing agitation. Patient initially placed in overflow under physician observation while awaiting long-term care/dementia unit placement. No beds are available at this time. Patient will be admitted to the hospital floor for further care while awaiting placement. Worsening agitation Remains cooperative -Likely in the setting of underlying worsening dementia and mood disorder -TSH, B12 and folate normal Lewy body dementia -donepezil -further therapies as clinically relevant cough cxr negative symptomatic support Tremors/parkinsonism -at baseline -continue carbidopa levodopa Mood disorder -Continue escitalopram, prazosin, risperidone. Full Code DVT Prophylaxis: Lovenox Reason for continued hospitalization: Awaiting placement in long-term/dementia unit as family is unable to safely care for him at home. Quality Stroke Does the patient have a stroke diagnosis?: No VTE Prior VTE?: No VTE Risk Level:: Medical - moderate - high VTE Device Contraindication: Treatment Not Indicated VTE Drug Contraindication: N/A - Med Ordered
[2023-09-17 15:50] VITALS: BP 136/68; PULSE 92; RESP 18; TEMP 37.3; O2SAT 94
[2023-09-17] MEDS: Escitalopram Oxalate 20 MG TABLET PO (19:39)
[2023-09-17] MEDS: Melatonin 3 MG TABLET 9 MG PO (19:39)
[2023-09-17] MEDS: Zolpidem Tartrate 5 MG TABLET PO (19:40)
[2023-09-17] MEDS: Donepezil HCl 10 MG TABLET PO (19:40)
[2023-09-17] MEDS: Enoxaparin Sodium 40 MG/0.4 ML SYRINGE SUBCUT (19:44)
[2023-09-17] MEDS: Benzonatate 100 MG CAPSULE PO (19:44)
[2023-09-17 20:00] VITALS: BP 147/85; PULSE 82; RESP 19; TEMP 36.2; O2SAT 92
[2023-09-18 03:19] VITALS: BP 123/80; PULSE 74; RESP 18; TEMP 36.3; O2SAT 92
[2023-09-18 07:31] VITALS: BP 153/86; PULSE 79; RESP 20; TEMP 36.4; O2SAT 95
[2023-09-18] MEDS: Carbidopa/Levodopa CR 25/100 TABLET.ER 1 TAB PO ×2 (09:12→19:17)
[2023-09-18] MEDS: Gabapentin 300 MG CAPSULE PO ×2 (09:12→19:17)
[2023-09-18] MEDS: Prazosin HCL 1 MG CAPSULE PO ×2 (09:12→19:18)
[2023-09-18] MEDS: risperiDONE 0.5 MG TABLET PO ×2 (09:13→19:18)
--- NOTE | 2023-09-18 10:48 | HO.PM.IMPN ---
Subjective Subjective Date of Service: 09/18/23 Interval History: no overnight events no specific complaints Physical Exam Vital Signs: Vital Signs: Last Vital Signs Temp 97.6 F 09/18/23 07:31 Pulse 79 09/18/23 07:31 Resp 20 09/18/23 07:31 BP 153/86 H 09/18/23 07:31 Pulse Ox 95 09/18/23 07:31 O2 Del Method Room Air 09/18/23 07:31 BMI result Body Mass Index 32.9 alert, no agitation soft abd LSCTA Objective Data Active Medications Acetaminophen (Acetaminophen 325 Mg Tablet) 650 mg PO Q6H PRN PRN Reason: Pain, Mild (Pain Scale 1-3) Last Admin: 09/15/23 07:22 Dose: 650 mg Documented By: NAEL Benzonatate (Benzonatate 100 Mg Capsule) 100 mg PO TID PRN PRN Reason: Cough Last Admin: 09/17/23 19:44 Dose: 100 mg Documented By: TRINIDAD Carbidopa/Levodopa (Carbidopa/Levodopa Cr 25/100 Tablet.Er) 1 tab PO TID [facility] Last Admin: 09/18/23 09:12 Dose: 1 tab Documented By: FRANCISCO Docusate Sodium (Docusate Sodium 100 Mg Capsule) 100 mg PO DAILY PRN PRN Reason: Constipation Donepezil HCl (Donepezil Hcl 10 Mg Tablet) 10 mg PO BEDTIME [facility] Last Admin: 09/17/23 19:40 Dose: 10 mg Documented By: TRINIDAD Enoxaparin Sodium (Enoxaparin Sodium 40 Mg/0.4 Ml Syringe) 40 mg SUBCUT Q24H [facility] Last Admin: 09/17/23 19:44 Dose: 40 mg Documented By: TRINIDAD Escitalopram Oxalate (Escitalopram Oxalate 20 Mg Tablet) 20 mg PO BEDTIME [facility] Last Admin: 09/17/23 19:39 Dose: 20 mg Documented By: TRINIDAD Gabapentin (Gabapentin 300 Mg Capsule) 300 mg PO TID [facility] Last Admin: 09/18/23 09:12 Dose: 300 mg Documented By: FRANCISCO Melatonin (Melatonin 3 Mg Tablet) 9 mg PO BEDTIME [facility] Last Admin: 09/17/23 19:39 Dose: 9 mg Documented By: TRINIDAD Prazosin HCl (Prazosin Hcl 1 Mg Capsule) 1 mg PO BID [facility]; Protocol Last Admin: 09/18/23 09:12 Dose: 1 mg Documented By: FRANCISCO Risperidone (Risperidone 0.5 Mg Tablet) 0.5 mg PO BID [facility] Last Admin: 09/18/23 09:13 Dose: 0.5 mg Documented By: FRANCISCO Sodium Chloride (0.9 % Sodium Chloride Flush 3 Ml Syringe) 3 ml IVFLUSH QSHIFT [facility] Last Admin: 09/18/23 09:12 Dose: Not Given Documented By: FRANCISCO Non-Admin Reason: No Access Zolpidem Tartrate (Zolpidem Tartrate 5 Mg Tablet) 5 mg PO BEDTIME [facility] Last Admin: 09/17/23 19:40 Dose: 5 mg Documented By: TRINIDAD Castillo 09/13/23 05:33 09/13/23 05:33 Assessment and Plan (1) Lewy body dementia: Status: Acute Plan Pt is a 58-year-old male with a PMH significant for?Lewy body dementia, tremors, and depression who initially presented to the ED on 08/27 2023 for evaluation increasing agitation. Patient initially placed in overflow under physician observation while awaiting long-term care/dementia unit placement. No beds are available at this time. Patient will be admitted to the hospital floor for further care while awaiting placement. Worsening agitation Remains cooperative Likely in the setting of underlying worsening dementia and mood disorder TSH, B12 and folate normal Lewy body dementia donepezil further therapies as clinically relevant cough cxr negative symptomatic support Tremors/parkinsonism at baseline continue carbidopa levodopa Mood disorder Continue escitalopram, prazosin, risperidone. Full Code DVT Prophylaxis: Lovejasonx Attending Dr. Gary Reason for continued hospitalization: Awaiting placement in long-term/dementia unit as family is unable to safely care for him at home. Quality Stroke Does the patient have a stroke diagnosis?: No VTE Prior VTE?: No VTE Risk Level:: Medical - moderate - high VTE Device Contraindication: Treatment Not Indicated VTE Drug Contraindication: N/A - Med Ordered
[2023-09-18 15:23] VITALS: BP 141/92; PULSE 102; RESP 20; TEMP 36.6; O2SAT 96
[2023-09-18] MEDS: Zolpidem Tartrate 5 MG TABLET PO (19:17)
[2023-09-18] MEDS: Melatonin 3 MG TABLET 9 MG PO (19:17)
[2023-09-18] MEDS: Enoxaparin Sodium 40 MG/0.4 ML SYRINGE SUBCUT (19:18)
[2023-09-18] MEDS: Escitalopram Oxalate 20 MG TABLET PO (19:18)
[2023-09-18] MEDS: Donepezil HCl 10 MG TABLET PO (19:18)
[2023-09-18 19:22] VITALS: BP 133/86; PULSE 87; RESP 18; TEMP 36.1; O2SAT 94
[2023-09-19 02:52] VITALS: BP 111/80; PULSE 73; RESP 18; TEMP 36.4; O2SAT 95
[2023-09-19 06:26] LABS: Hemoglobin 13.7 g/dl (14.0-18.0); Mean Corpuscular HGB Conc 32.6 g/dl (31.0-36.0); Mean Corpuscular Hemoglobin 29.8 pg (27.0-33.0); Mean Corpuscular Volume 91.3 fL (80.0-98.0); Mean Platelet Volume 10.6 fL (9.4-12.4); Platelet Count 208 X10*3/uL (160-400); Red Cell Distribution Width 12.9 % (11.0-16.0); White Blood Count 7.4 X10*3/uL (4.8-10.8)
[2023-09-19 06:36] LABS: Anion Gap 15 (12-20); Blood Urea Nitrogen 18 mg/dL (9-16); Calcium 9.1 mg/dL (8.4-10.2); Carbon Dioxide 24 mmol/L (22-29); Chloride 108 mmol/L (96-108); Creatinine Clr Calc Pharmacy 110.3; Estimated Glomerular Filt Rate > 60; Glucose Random 108 mg/dL (60-115); Potassium 3.6 mmol/L (3.3-5.1); Sodium 143 mmol/L (135-145)
[2023-09-19 07:17] VITALS: BP 127/76; PULSE 75; RESP 20; TEMP 36.4; O2SAT 95
--- NOTE | 2023-09-19 08:50 | P.PNIM_ITS ---
Subjective Subjective Date of Service: 09/19/23 Interval History: no overnight events no specific complaints Physical Exam 2 Vital Signs: Vital Signs: Last Vital Signs Temp 97.6 F 09/19/23 07:17 Pulse 75 09/19/23 07:17 Resp 20 09/19/23 07:17 BP 127/76 09/19/23 07:17 Pulse Ox 95 09/19/23 07:17 O2 Del Method Room Air 09/19/23 07:17 BMI result Body Mass Index 32.9 Appearing in no acute distress lung sounds are clear to auscultation heart regular rate rhythm, clear S1, S2 positive bowel sounds, abdomen is soft, nontender neuro patient is alert, confused Objective Data Active Medications Acetaminophen (Acetaminophen 325 Mg Tablet) 650 mg PO Q6H PRN PRN Reason: Pain, Mild (Pain Scale 1-3) Last Admin: 09/15/23 07:22 Dose: 650 mg Documented By: NAEL Benzonatate (Benzonatate 100 Mg Capsule) 100 mg PO TID PRN PRN Reason: Cough Last Admin: 09/17/23 19:44 Dose: 100 mg Documented By: TRINIDAD Carbidopa/Levodopa (Carbidopa/Levodopa Cr 25/100 Tablet.Er) 1 tab PO TID [facility] Last Admin: 09/18/23 19:17 Dose: 1 tab Documented By: KHADAR Docusate Sodium (Docusate Sodium 100 Mg Capsule) 100 mg PO DAILY PRN PRN Reason: Constipation Donepezil HCl (Donepezil Hcl 10 Mg Tablet) 10 mg PO BEDTIME [facility] Last Admin: 09/18/23 19:18 Dose: 10 mg Documented By: KHADAR Enoxaparin Sodium (Enoxaparin Sodium 40 Mg/0.4 Ml Syringe) 40 mg SUBCUT Q24H [facility] Last Admin: 09/18/23 19:18 Dose: 40 mg Documented By: KHADAR Escitalopram Oxalate (Escitalopram Oxalate 20 Mg Tablet) 20 mg PO BEDTIME [facility] Last Admin: 09/18/23 19:18 Dose: 20 mg Documented By: KHADAR Gabapentin (Gabapentin 300 Mg Capsule) 300 mg PO TID [facility] Last Admin: 09/18/23 19:17 Dose: 300 mg Documented By: KHADAR Melatonin (Melatonin 3 Mg Tablet) 9 mg PO BEDTIME [facility] Last Admin: 09/18/23 19:17 Dose: 9 mg Documented By: KHADAR Prazosin HCl (Prazosin Hcl 1 Mg Capsule) 1 mg PO BID [facility]; Protocol Last Admin: 09/18/23 19:18 Dose: 1 mg Documented By: KHADAR Risperidone (Risperidone 0.5 Mg Tablet) 0.5 mg PO BID [facility] Last Admin: 09/18/23 19:18 Dose: 0.5 mg Documented By: KHADAR Sodium Chloride (0.9 % Sodium Chloride Flush 3 Ml Syringe) 3 ml IVFLUSH QSHIFT [facility] Last Admin: 09/19/23 07:33 Dose: Not Given Documented By: FRANCISCO Non-Admin Reason: No Access Zolpidem Tartrate (Zolpidem Tartrate 5 Mg Tablet) 5 mg PO BEDTIME [facility] Last Admin: 09/18/23 19:17 Dose: 5 mg Documented By: KHADAR Labs 09/19/23 05:45 09/19/23 05:45 Labs: Laboratory Results - last 24 hr 09/19/23 05:45 MCV 91.3 MCH 29.8 MCHC 32.6 RDW 12.9 Plt Count 208 D MPV 10.6 Absolute Nucleated RBC 0.000 Nucleated RBC % (auto) 0.0 Anion Gap 15 Estim Creat Clear Calc 110.3 Estimated GFR > 60 Random Glucose 108 Calcium 9.1 Assessment and Plan (1) Lewy body dementia: Status: Acute Plan 58-year-old male with a PMH significant for?Lewy body dementia, tremors, and depression who initially presented to the ED on 08/27 2023 for evaluation increasing agitation. Patient initially placed in overflow under physician observation while awaiting long-term care/dementia unit placement. No beds are available at this time. Patient will be admitted to the hospital floor for further care while awaiting placement. Agitation Remains cooperative Likely in the setting of underlying worsening dementia and mood disorder TSH, B12 and folate normal Lewy body dementia donepezil supportive care Dry cough cxr negative symptomatic support Tremors/parkinsonism at baseline continue carbidopa levodopa Mood disorder Continue escitalopram, prazosin, risperidone. Full Code DVT Prophylaxis: Lovenox Attending Dr. Gary Reason for continued hospitalization: Awaiting placement in long-term/dementia unit as family is unable to safely care for him at home. Quality Stroke Does the patient have a stroke diagnosis?: No VTE Prior VTE?: No VTE Risk Level:: Medical - moderate - high VTE Device Contraindication: Treatment Not Indicated VTE Drug Contraindication: N/A - Med Ordered
[2023-09-19] MEDS: risperiDONE 0.5 MG TABLET PO ×2 (08:58→20:02)
[2023-09-19] MEDS: Carbidopa/Levodopa CR 25/100 TABLET.ER 1 TAB PO ×3 (08:58→20:01)
[2023-09-19] MEDS: Gabapentin 300 MG CAPSULE PO ×3 (08:58→20:01)
[2023-09-19] MEDS: Prazosin HCL 1 MG CAPSULE PO ×2 (08:58→20:01)
[2023-09-19] MEDS: Benzonatate 100 MG CAPSULE PO (08:58)
--- NOTE | 2023-09-19 10:56 | MHC.CM.PN ---
PT ASKED THAT HIS BE CALLED AND INFORMED HE DID NOT WISH TO HAVE A VISIT TODAY HE IS NOT FEELING WELL CM LEFT A VM FOR HIS , MILI [phone] WITH PTS MESSAGE
[2023-09-19 15:24] VITALS: BP 125/80; PULSE 89; RESP 16; TEMP 36.1; O2SAT 96
[2023-09-19 19:29] VITALS: BP 144/91; PULSE 85; RESP 18; TEMP 36.2; O2SAT 97
[2023-09-19] MEDS: Melatonin 3 MG TABLET 9 MG PO (20:01)
[2023-09-19] MEDS: Donepezil HCl 10 MG TABLET PO (20:02)
[2023-09-19] MEDS: Zolpidem Tartrate 5 MG TABLET PO (20:02)
[2023-09-19] MEDS: Escitalopram Oxalate 20 MG TABLET PO (20:02)
[2023-09-20 03:27] VITALS: BP 129/73; PULSE 84; RESP 14; TEMP 36.3; O2SAT 95
[2023-09-20 07:21] VITALS: BP 140/74; PULSE 77; RESP 12; TEMP 36.1; O2SAT 97
[2023-09-20] MEDS: Gabapentin 300 MG CAPSULE PO ×3 (08:50→19:48)
[2023-09-20] MEDS: Prazosin HCL 1 MG CAPSULE PO ×2 (08:51→19:48)
[2023-09-20] MEDS: Carbidopa/Levodopa CR 25/100 TABLET.ER 1 TAB PO ×3 (08:51→19:48)
[2023-09-20] MEDS: risperiDONE 0.5 MG TABLET PO ×2 (08:51→19:48)
--- NOTE | 2023-09-20 09:46 | P.PNIM_ITS ---
Subjective Subjective Date of Service: 09/20/23 Interval History: no overnight events no specific complaints Physical Exam 2 Vital Signs: Vital Signs: Last Vital Signs Temp 97.0 F 09/20/23 07:21 Pulse 77 09/20/23 07:21 Resp 12 09/20/23 07:21 BP 140/74 H 09/20/23 07:21 Pulse Ox 97 09/20/23 07:21 O2 Del Method Room Air 09/20/23 07:21 BMI result Body Mass Index 32.9 alert soft abd LSCTA Objective Data Active Medications Acetaminophen (Acetaminophen 325 Mg Tablet) 650 mg PO Q6H PRN PRN Reason: Pain, Mild (Pain Scale 1-3) Last Admin: 09/15/23 07:22 Dose: 650 mg Documented By: NAEL Benzonatate (Benzonatate 100 Mg Capsule) 100 mg PO TID PRN PRN Reason: Cough Last Admin: 09/19/23 08:58 Dose: 100 mg Documented By: FRANCISCO Carbidopa/Levodopa (Carbidopa/Levodopa Cr 25/100 Tablet.Er) 1 tab PO TID [facility] Last Admin: 09/20/23 08:51 Dose: 1 tab Documented By: FRANCISCO Docusate Sodium (Docusate Sodium 100 Mg Capsule) 100 mg PO DAILY PRN PRN Reason: Constipation Donepezil HCl (Donepezil Hcl 10 Mg Tablet) 10 mg PO BEDTIME [facility] Last Admin: 09/19/23 20:02 Dose: 10 mg Documented By: FRANCISCO Enoxaparin Sodium (Enoxaparin Sodium 40 Mg/0.4 Ml Syringe) 40 mg SUBCUT Q24H [facility] Last Admin: 09/19/23 22:13 Dose: Not Given Documented By: FRANCISCO Non-Admin Reason: Patient Refused Escitalopram Oxalate (Escitalopram Oxalate 20 Mg Tablet) 20 mg PO BEDTIME [facility] Last Admin: 09/19/23 20:02 Dose: 20 mg Documented By: FRANCISCO Gabapentin (Gabapentin 300 Mg Capsule) 300 mg PO TID [facility] Last Admin: 09/20/23 08:50 Dose: 300 mg Documented By: FRANCISCO Melatonin (Melatonin 3 Mg Tablet) 9 mg PO BEDTIME [facility] Last Admin: 09/19/23 20:01 Dose: 9 mg Documented By: FRANCISCO Prazosin HCl (Prazosin Hcl 1 Mg Capsule) 1 mg PO BID [facility]; Protocol Last Admin: 09/20/23 08:51 Dose: 1 mg Documented By: FRANCISCO Risperidone (Risperidone 0.5 Mg Tablet) 0.5 mg PO BID [facility] Last Admin: 09/20/23 08:51 Dose: 0.5 mg Documented By: FRANCISCO Sodium Chloride (0.9 % Sodium Chloride Flush 3 Ml Syringe) 3 ml IVFLUSH QSHIFT [facility] Last Admin: 09/20/23 07:43 Dose: Not Given Documented By: FRANCISCO Non-Admin Reason: No Access Zolpidem Tartrate (Zolpidem Tartrate 5 Mg Tablet) 5 mg PO BEDTIME [facility] Last Admin: 09/19/23 20:02 Dose: 5 mg Documented By: FRANCISCO Labs 09/19/23 05:45 09/19/23 05:45 Assessment and Plan (1) Lewy body dementia: Status: Acute Plan 58-year-old male with a PMH significant for?Lewy body dementia, tremors, and depression who initially presented to the ED on 08/27 2023 for evaluation increasing agitation. Patient initially placed in overflow under physician observation while awaiting long-term care/dementia unit placement. No beds are available at this time. Patient will be admitted to the hospital floor for further care while awaiting placement. Agitation Remains cooperative Likely in the setting of underlying worsening dementia and mood disorder TSH, B12 and folate normal Lewy body dementia donepezil supportive care Dry cough cxr negative symptomatic support Tremors/parkinsonism at baseline continue carbidopa levodopa Mood disorder Continue escitalopram, prazosin, risperidone. Full Code DVT Prophylaxis: Lovejasonx Attending Dr. Kidd Reason for continued hospitalization: Awaiting placement in long-term/dementia unit as family is unable to safely care for him at home. Quality Stroke Does the patient have a stroke diagnosis?: No VTE Prior VTE?: No VTE Risk Level:: Medical - moderate - high VTE Device Contraindication: Treatment Not Indicated VTE Drug Contraindication: N/A - Med Ordered
[2023-09-20] MEDS: Enoxaparin Sodium 40 MG/0.4 ML SYRINGE SUBCUT (10:55)
--- NOTE | 2023-09-20 14:44 | MHC.CM.PN ---
spoke with pts she has no family that can take her in is getting a internal grinding machine operator to deal with [facility] and the 4 car situation spoke withyajaira schreiber from [facility] who will call about foster care pts secondary ins is [facility] but it does not payfor ltc
[2023-09-20 15:27] VITALS: BP 138/84; PULSE 89; RESP 18; TEMP 36.3; O2SAT 91
[2023-09-20] MEDS: Zolpidem Tartrate 5 MG TABLET PO (19:48)
[2023-09-20] MEDS: Melatonin 3 MG TABLET 9 MG PO (19:48)
[2023-09-20] MEDS: Escitalopram Oxalate 20 MG TABLET PO (19:48)
[2023-09-20] MEDS: Donepezil HCl 10 MG TABLET PO (19:48)
[2023-09-20 19:52] VITALS: BP 134/95; PULSE 83; RESP 18; TEMP 37.1; O2SAT 95
[2023-09-21 03:51] VITALS: BP 107/77; PULSE 66; RESP 18; TEMP 36.2; O2SAT 94
[2023-09-21 07:28] VITALS: BP 132/85; PULSE 77; RESP 20; TEMP 36.3; O2SAT 95
[2023-09-21] MEDS: Carbidopa/Levodopa CR 25/100 TABLET.ER 1 TAB PO ×3 (08:09→20:08)
[2023-09-21] MEDS: Prazosin HCL 1 MG CAPSULE PO ×2 (08:09→20:07)
[2023-09-21] MEDS: risperiDONE 0.5 MG TABLET PO ×2 (08:09→20:07)
[2023-09-21] MEDS: Gabapentin 300 MG CAPSULE PO ×3 (08:09→20:07)
--- NOTE | 2023-09-21 09:31 | P.PNIM_ITS ---
Subjective Subjective Date of Service: 09/21/23 Interval History: no overnight events no specific complaints Physical Exam 2 Vital Signs: Vital Signs: Last Vital Signs Temp 97.4 F 09/21/23 07:28 Pulse 77 09/21/23 07:28 Resp 20 09/21/23 07:28 BP 132/85 09/21/23 07:28 Pulse Ox 95 09/21/23 07:28 O2 Del Method Room Air 09/21/23 07:28 BMI result Body Mass Index 32.9 alert soft abd LCTA Objective Data Active Medications Acetaminophen (Acetaminophen 325 Mg Tablet) 650 mg PO Q6H PRN PRN Reason: Pain, Mild (Pain Scale 1-3) Last Admin: 09/15/23 07:22 Dose: 650 mg Documented By: NAEL Benzonatate (Benzonatate 100 Mg Capsule) 100 mg PO TID PRN PRN Reason: Cough Last Admin: 09/19/23 08:58 Dose: 100 mg Documented By: FRANCISCO Carbidopa/Levodopa (Carbidopa/Levodopa Cr 25/100 Tablet.Er) 1 tab PO TID [facility] Last Admin: 09/21/23 08:09 Dose: 1 tab Documented By: CHETAN Docusate Sodium (Docusate Sodium 100 Mg Capsule) 100 mg PO DAILY PRN PRN Reason: Constipation Donepezil HCl (Donepezil Hcl 10 Mg Tablet) 10 mg PO BEDTIME [facility] Last Admin: 09/20/23 19:48 Dose: 10 mg Documented By: FRANCISCO Enoxaparin Sodium (Enoxaparin Sodium 40 Mg/0.4 Ml Syringe) 40 mg SUBCUT Q24H [facility] Last Admin: 09/20/23 10:55 Dose: 40 mg Documented By: FRANCISCO Escitalopram Oxalate (Escitalopram Oxalate 20 Mg Tablet) 20 mg PO BEDTIME [facility] Last Admin: 09/20/23 19:48 Dose: 20 mg Documented By: FRANCISCO Gabapentin (Gabapentin 300 Mg Capsule) 300 mg PO TID [facility] Last Admin: 09/21/23 08:09 Dose: 300 mg Documented By: CHETAN Melatonin (Melatonin 3 Mg Tablet) 9 mg PO BEDTIME [facility] Last Admin: 09/20/23 19:48 Dose: 9 mg Documented By: FRANCISCO Prazosin HCl (Prazosin Hcl 1 Mg Capsule) 1 mg PO BID [facility]; Protocol Last Admin: 09/21/23 08:09 Dose: 1 mg Documented By: CHETAN Risperidone (Risperidone 0.5 Mg Tablet) 0.5 mg PO BID [facility] Last Admin: 09/21/23 08:09 Dose: 0.5 mg Documented By: CHETAN Sodium Chloride (0.9 % Sodium Chloride Flush 3 Ml Syringe) 3 ml IVFLUSH QSHIFT [facility] Last Admin: 09/21/23 08:08 Dose: Not Given Documented By: CHETAN Non-Admin Reason: No Access Zolpidem Tartrate (Zolpidem Tartrate 5 Mg Tablet) 5 mg PO BEDTIME [facility] Last Admin: 09/20/23 19:48 Dose: 5 mg Documented By: FRANCISCO Labs 09/19/23 05:45 09/19/23 05:45 Assessment and Plan (1) Lewy body dementia: Status: Acute Plan 58-year-old male with a PMH significant for?Lewy body dementia, tremors, and depression who initially presented to the ED on 08/27 2023 for evaluation increasing agitation. Patient initially placed in overflow under physician observation while awaiting long-term care/dementia unit placement. No beds are available at this time. Patient will be admitted to the hospital floor for further care while awaiting placement. Lewy body dementia with ocassional agitation remains cooperative donepezil supportive care Dry cough cxr negative symptomatic support Tremors/parkinsonism at baseline continue carbidopa levodopa Mood disorder Continue escitalopram, prazosin, risperidone. Full Code DVT Prophylaxis: [facility] Attending Dr. Kidd Reason for continued hospitalization: Awaiting placement in long-term/dementia unit as family is unable to safely care for him at home. Quality Stroke Does the patient have a stroke diagnosis?: No VTE Prior VTE?: No VTE Risk Level:: Medical - moderate - high VTE Device Contraindication: Treatment Not Indicated VTE Drug Contraindication: N/A - Med Ordered
[2023-09-21] MEDS: Enoxaparin Sodium 40 MG/0.4 ML SYRINGE SUBCUT (09:49)
[2023-09-21 14:00] VITALS: BP 132/85; PULSE 77; O2SAT 95
[2023-09-21] MEDS: 0.9 % Sodium Chloride Flush 3 ML SYRINGE IVFLUSH (15:01)
[2023-09-21 15:18] VITALS: BP 141/75; PULSE 89; RESP 18; TEMP 36.2; O2SAT 93
--- NOTE | 2023-09-21 16:17 | MHC.CM.PN ---
This CM spoke with via telephone, reviewed hospital course. initially requesting LTC placement due to inability to manage behaviors at home. However, [facility] does not cover LTC. worked with [employer] for [employer], and was notified by FS on 09/17 that the patient will not qualify for standard, over assets. expressed intent to work with a board machine set up operator to ?move assets.? Now has [employer], which does not cover LTC. Per , no change in assets at this time and not able to pay privately. CM unable to secure LTC placement due to lack of payor.? CM also explored adult foster care. However, per [facility], patient is not eligible (would need [employer]). [facility] did reach out to the to discuss other services that can be offered, and has not responded.? CM also suggested reach out to patient?s family for potential alternative living arrangement. Per , patient?s family unable to take patient in.? Patient was cleared by psych on 09/01. No aggressive/combative behaviors since admission. No safety concerns.? Patient evaluated by physical therapy today. Recommendation is home w/ trial of services. Able to ambulate safely with a walker.? This CM attempted to discuss dc home w/ services, as there are no medical reasons for continued admission. refusing to take patient home at this time. IMM and HINN-12 verbally delivered. verbalized understanding and expressed intent to work with family service worker and appeal dc. IMM and HINN-12 mailed to address on file, copies placed in paper chart. Hospitalist and CM sales communications manager aware.
[2023-09-21 20:00] VITALS: BP 128/83; PULSE 86; RESP 18; TEMP 36.3; O2SAT 94
[2023-09-21] MEDS: Escitalopram Oxalate 20 MG TABLET PO (20:07)
[2023-09-21] MEDS: Melatonin 3 MG TABLET 9 MG PO (20:07)
[2023-09-21] MEDS: Donepezil HCl 10 MG TABLET PO (20:07)
[2023-09-22 03:14] VITALS: BP 116/72; PULSE 87; RESP 18; TEMP 36.6; O2SAT 94
[2023-09-22] MEDS: Gabapentin 300 MG CAPSULE PO ×3 (07:54→20:23)
[2023-09-22] MEDS: risperiDONE 0.5 MG TABLET PO ×2 (07:54→20:22)
[2023-09-22 07:55] VITALS: BP 130/84; PULSE 81; RESP 18; TEMP 36; O2SAT 92
[2023-09-22] MEDS: Prazosin HCL 1 MG CAPSULE PO ×2 (07:55→20:23)
[2023-09-22] MEDS: Carbidopa/Levodopa CR 25/100 TABLET.ER 1 TAB PO ×3 (07:55→20:23)
[2023-09-22] MEDS: Acetaminophen 325 MG TABLET 650 MG PO (07:59)
[2023-09-22] MEDS: Enoxaparin Sodium 40 MG/0.4 ML SYRINGE SUBCUT (10:40)
[2023-09-22] MEDS: Benzonatate 100 MG CAPSULE PO (14:31)
--- NOTE | 2023-09-22 14:56 | P.PNIM_ITS ---
Subjective Subjective Date of Service: 09/22/23 Interval History: No acute issues overnight. Nurse states mild productive cough Review of Systems Unable to obtain Physical Exam 2 Vital Signs: Vital Signs: Last Vital Signs Temp 96.8 F 09/22/23 07:55 Pulse 81 09/22/23 07:55 Resp 18 09/22/23 07:55 BP 130/84 09/22/23 07:55 Pulse Ox 92 09/22/23 07:55 O2 Del Method Room Air 09/22/23 07:55 BMI result Body Mass Index 32.9 Const: Other: Awake alert no acute distress Resp: Other: Clear to auscultation bilaterally no rales rhonchi or wheezes Cardio: Other: No S4; positive S1-S2; S3 murmurs rubs or gallops GI: Other: Soft nontender nondistended normoactive bowel sounds Extrem: Other: No edema bilaterally Objective Data Active Medications Acetaminophen (Acetaminophen 325 Mg Tablet) 650 mg PO Q6H PRN PRN Reason: Pain, Mild (Pain Scale 1-3) Last Admin: 09/22/23 07:59 Dose: 650 mg Documented By: CHETAN Benzonatate (Benzonatate 100 Mg Capsule) 100 mg PO TID PRN PRN Reason: Cough Last Admin: 09/22/23 14:31 Dose: 100 mg Documented By: CHETAN Carbidopa/Levodopa (Carbidopa/Levodopa Cr 25/100 Tablet.Er) 1 tab PO TID [facility] Last Admin: 09/22/23 14:31 Dose: 1 tab Documented By: CHETAN Docusate Sodium (Docusate Sodium 100 Mg Capsule) 100 mg PO DAILY PRN PRN Reason: Constipation Donepezil HCl (Donepezil Hcl 10 Mg Tablet) 10 mg PO BEDTIME [facility] Last Admin: 09/21/23 20:07 Dose: 10 mg Documented By: VIRGILIO Enoxaparin Sodium (Enoxaparin Sodium 40 Mg/0.4 Ml Syringe) 40 mg SUBCUT Q24H [facility] Last Admin: 09/22/23 10:40 Dose: 40 mg Documented By: CHETAN Escitalopram Oxalate (Escitalopram Oxalate 20 Mg Tablet) 20 mg PO BEDTIME [facility] Last Admin: 09/21/23 20:07 Dose: 20 mg Documented By: VIRGILIO Gabapentin (Gabapentin 300 Mg Capsule) 300 mg PO TID [facility] Last Admin: 09/22/23 14:31 Dose: 300 mg Documented By: CHETAN Melatonin (Melatonin 3 Mg Tablet) 9 mg PO BEDTIME [facility] Last Admin: 09/21/23 20:07 Dose: 9 mg Documented By: VIRGILIO Prazosin HCl (Prazosin Hcl 1 Mg Capsule) 1 mg PO BID [facility]; Protocol Last Admin: 09/22/23 07:55 Dose: 1 mg Documented By: CHETAN Risperidone (Risperidone 0.5 Mg Tablet) 0.5 mg PO BID [facility] Last Admin: 09/22/23 07:54 Dose: 0.5 mg Documented By: CHETAN Sodium Chloride (0.9 % Sodium Chloride Flush 3 Ml Syringe) 3 ml IVFLUSH QSHIFT [facility] Last Admin: 09/22/23 07:55 Dose: Not Given Documented By: CHETAN Non-Admin Reason: No Access Labs 09/19/23 05:45 09/19/23 05:45 Assessment and Plan (1) Lewy body dementia: Status: Acute Plan Pt is a 58-year-old male with a PMH significant for?Lewy body dementia, tremors, and depression who initially presented to the ED on 08/27 2023 for evaluation increasing agitation. Patient initially placed in overflow under physician observation while awaiting long-term care/dementia unit placement. No beds are available at this time. Patient will be admitted to the hospital floor for further care while awaiting placement. 1.Worsening agitation -no events overnight... Remains cooperative -Likely in the setting of underlying worsening dementia and mood disorder -TSH, B12 and folate normal 2.Lewy body dementia -donepezil -further therapies as clinically relevant 3.Tremors/parkinsonism -at baseline -continue carbidopa levodopa 4.Mood disorder -Continue escitalopram, prazosin, risperidone. Full Code DVT Prophylaxis: Lovenox Reason for continued hospitalization: Awaiting placement in long-term/dementia unit as family is unable to safely care for him at home. Quality Stroke Does the patient have a stroke diagnosis?: No VTE Prior VTE?: No VTE Risk Level:: Medical - moderate - high VTE Device Contraindication: Treatment Not Indicated VTE Drug Contraindication: N/A - Med Ordered
[2023-09-22 15:25] VITALS: BP 134/87; PULSE 82; RESP 18; TEMP 36.1; O2SAT 95
[2023-09-22 19:20] VITALS: BP 130/79; PULSE 79; RESP 17; TEMP 36.3; O2SAT 95
[2023-09-22] MEDS: Donepezil HCl 10 MG TABLET PO (20:22)
[2023-09-22] MEDS: Escitalopram Oxalate 20 MG TABLET PO (20:22)
[2023-09-22] MEDS: Melatonin 3 MG TABLET 9 MG PO (20:23)
[2023-09-23 03:22] VITALS: BP 120/62; PULSE 75; RESP 17; TEMP 36.4; O2SAT 95
[2023-09-23 08:00] VITALS: BP 132/77; PULSE 81; RESP 18; TEMP 36.1; O2SAT 93
[2023-09-23] MEDS: Carbidopa/Levodopa CR 25/100 TABLET.ER 1 TAB PO ×2 (08:44→20:36)
[2023-09-23] MEDS: Enoxaparin Sodium 40 MG/0.4 ML SYRINGE SUBCUT ×2 (08:44→08:47)
[2023-09-23] MEDS: Prazosin HCL 1 MG CAPSULE PO ×2 (08:44→20:36)
[2023-09-23] MEDS: Gabapentin 300 MG CAPSULE PO ×2 (08:44→20:35)
[2023-09-23] MEDS: risperiDONE 0.5 MG TABLET PO ×2 (08:44→20:35)
--- NOTE | 2023-09-23 14:34 | HO.PM.IMPN ---
Subjective Subjective Date of Service: 09/23/23 Interval History: No acute issues overnight. Nurse states mild productive cough Review of Systems Unable to obtain Physical Exam Vital Signs: Vital Signs: Last Vital Signs Temp 96.9 F 09/23/23 08:00 Pulse 81 09/23/23 08:00 Resp 18 09/23/23 08:00 BP 132/77 09/23/23 08:00 Pulse Ox 93 09/23/23 08:00 O2 Del Method Room Air 09/23/23 08:00 BMI result Body Mass Index 32.9 Const: Other: Awake alert no acute distress Resp: Other: Clear to auscultation bilaterally no rales rhonchi or wheezes Cardio: Other: No S4; positive S1-S2; S3 murmurs rubs or gallops GI: Other: Soft nontender nondistended normoactive bowel sounds Extrem: Other: No edema bilaterally Objective Data Active Medications Acetaminophen (Acetaminophen 325 Mg Tablet) 650 mg PO Q6H PRN PRN Reason: Pain, Mild (Pain Scale 1-3) Last Admin: 09/22/23 07:59 Dose: 650 mg Documented By: CHETAN Benzonatate (Benzonatate 100 Mg Capsule) 100 mg PO TID PRN PRN Reason: Cough Last Admin: 09/22/23 14:31 Dose: 100 mg Documented By: CHETAN Carbidopa/Levodopa (Carbidopa/Levodopa Cr 25/100 Tablet.Er) 1 tab PO TID [facility] Last Admin: 09/23/23 08:44 Dose: 1 tab Documented By: FOREST Docusate Sodium (Docusate Sodium 100 Mg Capsule) 100 mg PO DAILY PRN PRN Reason: Constipation Donepezil HCl (Donepezil Hcl 10 Mg Tablet) 10 mg PO BEDTIME [facility] Last Admin: 09/22/23 20:22 Dose: 10 mg Documented By: MALISSA Enoxaparin Sodium (Enoxaparin Sodium 40 Mg/0.4 Ml Syringe) 40 mg SUBCUT Q24H [facility] Last Admin: 09/23/23 08:47 Dose: 40 mg Documented By: FOREST Escitalopram Oxalate (Escitalopram Oxalate 20 Mg Tablet) 20 mg PO BEDTIME [facility] Last Admin: 09/22/23 20:22 Dose: 20 mg Documented By: MALISSA Gabapentin (Gabapentin 300 Mg Capsule) 300 mg PO TID [facility] Last Admin: 09/23/23 08:44 Dose: 300 mg Documented By: FOREST Melatonin (Melatonin 3 Mg Tablet) 9 mg PO BEDTIME [facility] Last Admin: 09/22/23 20:23 Dose: 9 mg Documented By: MALISSA Prazosin HCl (Prazosin Hcl 1 Mg Capsule) 1 mg PO BID [facility]; Protocol Last Admin: 09/23/23 08:44 Dose: 1 mg Documented By: FOREST Risperidone (Risperidone 0.5 Mg Tablet) 0.5 mg PO BID [facility] Last Admin: 09/23/23 08:44 Dose: 0.5 mg Documented By: FOREST Sodium Chloride (0.9 % Sodium Chloride Flush 3 Ml Syringe) 3 ml IVFLUSH QSHIFT [facility] Last Admin: 09/23/23 08:45 Dose: Not Given Documented By: FOREST Non-Admin Reason: No Access Labs 09/19/23 05:45 09/19/23 05:45 Assessment and Plan (1) Lewy body dementia: Status: Acute Plan Pt is a 58-year-old male with a PMH significant for?Lewy body dementia, tremors, and depression who initially presented to the ED on 08/27 2023 for evaluation increasing agitation. Patient initially placed in overflow under physician observation while awaiting long-term care/dementia unit placement. No beds are available at this time. Patient will be admitted to the hospital floor for further care while awaiting placement. 1.Worsening agitation -no events overnight... Remains cooperative -Likely in the setting of underlying worsening dementia and mood disorder -TSH, B12 and folate normal 2.Lewy body dementia -donepezil -further therapies as clinically relevant 3.Tremors/parkinsonism -at baseline -continue carbidopa levodopa 4.Mood disorder -Continue escitalopram, prazosin, risperidone. Full Code DVT Prophylaxis: Lovenox Reason for continued hospitalization: Awaiting placement in long-term/dementia unit as family is unable to safely care for him at home. Quality Stroke Does the patient have a stroke diagnosis?: No VTE Prior VTE?: No VTE Risk Level:: Medical - moderate - high VTE Device Contraindication: Treatment Not Indicated VTE Drug Contraindication: N/A - Med Ordered
--- NOTE | 2023-09-23 14:55 | MHC.CM.PN ---
YESSICA SPOKE WITH [facility] WHO CONFIRMS PT HAS A PLAN WITH A LTC BENEFIT. PER [facility], THE NUMBER TO VERIFY THIS PLAN FOR FACILITIES THAT MAY ACCEPT AND NEED TO CONFIRM IS [phone]. THE PLAN DOES REQUIRE PRIOR AUTH. LIST OF LOCAL CONTRACTED FACILITIES UPDATED WITH INSURANCE INFORMATION , AWAITING RESPONSES FOR PLACEMENT . NO BED OFFERS AT THIS TIME.
[2023-09-23 15:22] VITALS: BP 122/69; PULSE 91; RESP 18; TEMP 35.8; O2SAT 94
[2023-09-23 19:28] VITALS: BP 118/75; PULSE 99; RESP 17; TEMP 36.4; O2SAT 94
[2023-09-23] MEDS: Escitalopram Oxalate 20 MG TABLET PO (20:35)
[2023-09-23] MEDS: Donepezil HCl 10 MG TABLET PO (20:35)
[2023-09-23] MEDS: Melatonin 3 MG TABLET 9 MG PO (20:36)
[2023-09-24 03:19] VITALS: BP 124/77; PULSE 76; RESP 19; TEMP 36.3; O2SAT 92
[2023-09-24 07:58] VITALS: BP 121/75; PULSE 89; RESP 18; TEMP 37.2; O2SAT 94
[2023-09-24] MEDS: risperiDONE 0.5 MG TABLET PO ×2 (08:40→21:45)
[2023-09-24] MEDS: Carbidopa/Levodopa CR 25/100 TABLET.ER 1 TAB PO ×3 (08:40→21:45)
[2023-09-24] MEDS: Prazosin HCL 1 MG CAPSULE PO ×2 (08:40→21:45)
[2023-09-24] MEDS: Gabapentin 300 MG CAPSULE PO ×3 (08:40→21:45)
--- NOTE | 2023-09-24 11:42 | MHC.CM.PN ---
Addendum entered by Kiera Tran 09/24/23 13:57: [facility] REVIEWING FOR A POSSIBLE BED OFFER. CENTER HAS REQUESTED NURSING DOCUMENTATION THROUGH THE WEEKEND SO THEY MAY REVIEW ON WEDNESDAY 09/27. LIAISON SPENCER [phone]. /HCP MILI UPDATED VIA TELEPHONE. Original Note: EMR REVIEWED . PT IS MEDICALLY CLEARED FOR DC ONCE LTC /DEMENTIA BED SECURED. REFERRALS EXPANDED AND UPDATED VIA [facility]/PHONE CALLS. CM WILL CONTINUE TO FOLLOW FOR ANY CHANGE IN DC PLAN/NEEDS.
--- NOTE | 2023-09-24 15:10 | HO.PM.IMPN ---
Subjective Subjective Date of Service: 09/24/23 Interval History: No acute issues overnight. Nurse states mild productive cough Review of Systems Unable to obtain Physical Exam Vital Signs: Vital Signs: Last Vital Signs Temp 99.0 F 09/24/23 07:58 Pulse 89 09/24/23 07:58 Resp 18 09/24/23 07:58 BP 121/75 09/24/23 07:58 Pulse Ox 94 09/24/23 07:58 O2 Del Method Room Air 09/24/23 07:58 BMI result Body Mass Index 32.9 Const: Other: Awake alert no acute distress Resp: Other: Clear to auscultation bilaterally no rales rhonchi or wheezes Cardio: Other: No S4; positive S1-S2; S3 murmurs rubs or gallops GI: Other: Soft nontender nondistended normoactive bowel sounds Extrem: Other: No edema bilaterally Objective Data Active Medications Acetaminophen (Acetaminophen 325 Mg Tablet) 650 mg PO Q6H PRN PRN Reason: Pain, Mild (Pain Scale 1-3) Last Admin: 09/22/23 07:59 Dose: 650 mg Documented By: CHETAN Benzonatate (Benzonatate 100 Mg Capsule) 100 mg PO TID PRN PRN Reason: Cough Last Admin: 09/22/23 14:31 Dose: 100 mg Documented By: CHETAN Carbidopa/Levodopa (Carbidopa/Levodopa Cr 25/100 Tablet.Er) 1 tab PO TID [facility] Last Admin: 09/24/23 14:10 Dose: 1 tab Documented By: CHETAN Docusate Sodium (Docusate Sodium 100 Mg Capsule) 100 mg PO DAILY PRN PRN Reason: Constipation Donepezil HCl (Donepezil Hcl 10 Mg Tablet) 10 mg PO BEDTIME [facility] Last Admin: 09/23/23 20:35 Dose: 10 mg Documented By: FRANCISCO Enoxaparin Sodium (Enoxaparin Sodium 40 Mg/0.4 Ml Syringe) 40 mg SUBCUT Q24H [facility] Last Admin: 09/23/23 08:47 Dose: 40 mg Documented By: FOREST Escitalopram Oxalate (Escitalopram Oxalate 20 Mg Tablet) 20 mg PO BEDTIME [facility] Last Admin: 09/23/23 20:35 Dose: 20 mg Documented By: FRANCISCO Gabapentin (Gabapentin 300 Mg Capsule) 300 mg PO TID [facility] Last Admin: 09/24/23 14:10 Dose: 300 mg Documented By: CHETAN Melatonin (Melatonin 3 Mg Tablet) 9 mg PO BEDTIME [facility] Last Admin: 09/23/23 20:36 Dose: 9 mg Documented By: FRANCISCO Prazosin HCl (Prazosin Hcl 1 Mg Capsule) 1 mg PO BID [facility]; Protocol Last Admin: 09/24/23 08:40 Dose: 1 mg Documented By: CHETAN Risperidone (Risperidone 0.5 Mg Tablet) 0.5 mg PO BID [facility] Last Admin: 09/24/23 08:40 Dose: 0.5 mg Documented By: CHETAN Sodium Chloride (0.9 % Sodium Chloride Flush 3 Ml Syringe) 3 ml IVFLUSH QSHIFT [facility] Last Admin: 09/24/23 14:11 Dose: Not Given Documented By: CHETAN Non-Admin Reason: No Access Labs 09/19/23 05:45 09/19/23 05:45 Assessment and Plan (1) Lewy body dementia: Status: Acute Plan Pt is a 58-year-old male with a PMH significant for?Lewy body dementia, tremors, and depression who initially presented to the ED on 08/27 2023 for evaluation increasing agitation. Patient initially placed in overflow under physician observation while awaiting long-term care/dementia unit placement. No beds are available at this time. Patient will be admitted to the hospital floor for further care while awaiting placement. 1.Worsening agitation -no events overnight... Remains cooperative -Likely in the setting of underlying worsening dementia and mood disorder -TSH, B12 and folate normal 2.Lewy body dementia -donepezil -further therapies as clinically relevant 3.Tremors/parkinsonism -at baseline -continue carbidopa levodopa 4.Mood disorder -Continue escitalopram, prazosin, risperidone. Full Code DVT Prophylaxis: Lovenox Reason for continued hospitalization: Awaiting placement in long-term/dementia unit as family is unable to safely care for him at home. Quality Stroke Does the patient have a stroke diagnosis?: No VTE Prior VTE?: No VTE Risk Level:: Medical - moderate - high VTE Device Contraindication: Treatment Not Indicated VTE Drug Contraindication: N/A - Med Ordered
[2023-09-24 16:00] VITALS: BP 127/70; PULSE 85; RESP 20; TEMP 36.1; O2SAT 91
--- NOTE | 2023-09-24 19:26 | PC.NURSE ---
Pt A/O x3, pleasant and cooperative with care. Often repeats questions but is easily directable. . Able to take pills whole with water and self feeds when set up for meals. 1 assist with walker to ambulate in hallways and sits up in recliner for his meals. Denies pain.
[2023-09-24 20:00] VITALS: BP 142/86; PULSE 89; RESP 18; TEMP 37.1; O2SAT 93
[2023-09-24] MEDS: Melatonin 3 MG TABLET 9 MG PO (21:45)
[2023-09-24] MEDS: Donepezil HCl 10 MG TABLET PO (21:45)
[2023-09-24] MEDS: Escitalopram Oxalate 20 MG TABLET PO (21:45)
[2023-09-24] MEDS: 0.9 % Sodium Chloride Flush 3 ML SYRINGE IVFLUSH (21:45)
[2023-09-25 03:41] VITALS: BP 130/79; PULSE 75; RESP 18; TEMP 36.7; O2SAT 92
[2023-09-25 07:05] VITALS: BP 122/68; PULSE 72; RESP 16; TEMP 36.6; O2SAT 93
[2023-09-25] MEDS: Prazosin HCL 1 MG CAPSULE PO ×2 (08:18→19:28)
[2023-09-25] MEDS: Gabapentin 300 MG CAPSULE PO ×3 (08:18→19:29)
[2023-09-25] MEDS: risperiDONE 0.5 MG TABLET PO ×2 (08:19→19:29)
[2023-09-25] MEDS: Carbidopa/Levodopa CR 25/100 TABLET.ER 1 TAB PO ×3 (08:19→19:29)
[2023-09-25] MEDS: Enoxaparin Sodium 40 MG/0.4 ML SYRINGE SUBCUT (09:36)
--- NOTE | 2023-09-25 12:38 | HO.PM.IMPN ---
Subjective Subjective Date of Service: 09/25/23 Interval History: No acute issues overnight. No aggressive behavior overnight Review of Systems Unable to obtain Physical Exam Vital Signs: Vital Signs: Last Vital Signs Temp 98 F 09/25/23 07:05 Pulse 72 09/25/23 07:05 Resp 16 09/25/23 07:05 BP 122/68 09/25/23 07:05 Pulse Ox 93 09/25/23 07:05 O2 Del Method Room Air 09/25/23 07:05 BMI result Body Mass Index 32.9 Const: Other: Awake alert no acute distress Resp: Other: Clear to auscultation bilaterally no rales rhonchi or wheezes Cardio: Other: No S4; positive S1-S2; S3 murmurs rubs or gallops GI: Other: Soft nontender nondistended normoactive bowel sounds Extrem: Other: No edema bilaterally Objective Data Active Medications Acetaminophen (Acetaminophen 325 Mg Tablet) 650 mg PO Q6H PRN PRN Reason: Pain, Mild (Pain Scale 1-3) Last Admin: 09/22/23 07:59 Dose: 650 mg Documented By: CHETAN Benzonatate (Benzonatate 100 Mg Capsule) 100 mg PO TID PRN PRN Reason: Cough Last Admin: 09/22/23 14:31 Dose: 100 mg Documented By: CHETAN Carbidopa/Levodopa (Carbidopa/Levodopa Cr 25/100 Tablet.Er) 1 tab PO TID [facility] Last Admin: 09/25/23 08:19 Dose: 1 tab Documented By: CHETAN Docusate Sodium (Docusate Sodium 100 Mg Capsule) 100 mg PO DAILY PRN PRN Reason: Constipation Donepezil HCl (Donepezil Hcl 10 Mg Tablet) 10 mg PO BEDTIME [facility] Last Admin: 09/24/23 21:45 Dose: 10 mg Documented By: ROOSEVELT Enoxaparin Sodium (Enoxaparin Sodium 40 Mg/0.4 Ml Syringe) 40 mg SUBCUT Q24H [facility] Last Admin: 09/25/23 09:36 Dose: 40 mg Documented By: CHETAN Escitalopram Oxalate (Escitalopram Oxalate 20 Mg Tablet) 20 mg PO BEDTIME [facility] Last Admin: 09/24/23 21:45 Dose: 20 mg Documented By: ROOSEEVLT Gabapentin (Gabapentin 300 Mg Capsule) 300 mg PO TID [facility] Last Admin: 09/25/23 08:18 Dose: 300 mg Documented By: CHETAN Melatonin (Melatonin 3 Mg Tablet) 9 mg PO BEDTIME [facility] Last Admin: 09/24/23 21:45 Dose: 9 mg Documented By: ROOSEVELT Prazosin HCl (Prazosin Hcl 1 Mg Capsule) 1 mg PO BID [facility]; Protocol Last Admin: 09/25/23 08:18 Dose: 1 mg Documented By: CHETAN Risperidone (Risperidone 0.5 Mg Tablet) 0.5 mg PO BID [facility] Last Admin: 09/25/23 08:19 Dose: 0.5 mg Documented By: CHETAN Sodium Chloride (0.9 % Sodium Chloride Flush 3 Ml Syringe) 3 ml IVFLUSH QSHIFT [facility] Last Admin: 09/25/23 08:19 Dose: Not Given Documented By: CHETAN Non-Admin Reason: No Access Labs 09/19/23 05:45 09/19/23 05:45 Assessment and Plan (1) Lewy body dementia: Status: Acute Plan Pt is a 58-year-old male with a PMH significant for?Lewy body dementia, tremors, and depression who initially presented to the ED on 08/27 2023 for evaluation increasing agitation. Patient initially placed in overflow under physician observation while awaiting long-term care/dementia unit placement. No beds are available at this time. Patient will be admitted to the hospital floor for further care while awaiting placement. 1.Worsening agitation -no events overnight... Remains cooperative -Likely in the setting of underlying worsening dementia and mood disorder -TSH, B12 and folate normal 2.Lewy body dementia -donepezil -further therapies as clinically relevant 3.Tremors/parkinsonism -at baseline -continue carbidopa levodopa 4.Mood disorder -Continue escitalopram, prazosin, risperidone. Full Code DVT Prophylaxis: Lovenox Reason for continued hospitalization: Awaiting placement in long-term/dementia unit as family is unable to safely care for him at home. Quality Stroke Does the patient have a stroke diagnosis?: No VTE Prior VTE?: No VTE Risk Level:: Medical - moderate - high VTE Device Contraindication: Treatment Not Indicated VTE Drug Contraindication: N/A - Med Ordered
[2023-09-25 15:59] VITALS: BP 118/72; PULSE 82; RESP 18; TEMP 36.8; O2SAT 92
--- NOTE | 2023-09-25 18:10 | PC.NURSE ---
Pt A/O x3. Cooperative with care. Repeats questions but is easily redirected. Takes medications whole with water and self feeds when set up for meals. 1 assist with walker to ambulate and sits up in recliner for meals.
[2023-09-25 18:46] VITALS: BP 120/78; PULSE 74; RESP 18; TEMP 36.4; O2SAT 97
[2023-09-25] MEDS: Melatonin 3 MG TABLET 9 MG PO (19:28)
[2023-09-25] MEDS: Escitalopram Oxalate 20 MG TABLET PO (19:29)
[2023-09-25] MEDS: Donepezil HCl 10 MG TABLET PO (19:29)
[2023-09-25] MEDS: 0.9 % Sodium Chloride Flush 3 ML SYRINGE IVFLUSH (19:31)
[2023-09-26 03:55] VITALS: BP 126/75; PULSE 67; RESP 16; TEMP 36.8; O2SAT 92
[2023-09-26 06:54] VITALS: BP 122/64; PULSE 68; RESP 16; TEMP 36.1; O2SAT 92
[2023-09-26] MEDS: Prazosin HCL 1 MG CAPSULE PO ×2 (08:39→20:05)
[2023-09-26] MEDS: Benzonatate 100 MG CAPSULE PO (08:39)
[2023-09-26] MEDS: Carbidopa/Levodopa CR 25/100 TABLET.ER 1 TAB PO ×3 (08:39→20:05)
[2023-09-26] MEDS: risperiDONE 0.5 MG TABLET PO ×2 (08:39→20:05)
[2023-09-26] MEDS: Gabapentin 300 MG CAPSULE PO ×3 (08:39→20:05)
[2023-09-26] MEDS: Enoxaparin Sodium 40 MG/0.4 ML SYRINGE SUBCUT (10:57)
--- NOTE | 2023-09-26 13:14 | P.PNIM_ITS ---
Subjective Subjective Date of Service: 09/26/23 Interval History: No acute issues overnight. No aggressive behavior overnight Review of Systems Unable to obtain Physical Exam 2 Vital Signs: Vital Signs: Last Vital Signs Temp 97 F 09/26/23 06:54 Pulse 68 09/26/23 06:54 Resp 16 09/26/23 06:54 BP 122/64 09/26/23 06:54 Pulse Ox 92 09/26/23 06:54 O2 Del Method Room Air 09/26/23 06:54 BMI result Body Mass Index 32.9 Const: Other: Awake alert no acute distress Resp: Other: Clear to auscultation bilaterally no rales rhonchi or wheezes Cardio: Other: No S4; positive S1-S2; S3 murmurs rubs or gallops GI: Other: Soft nontender nondistended normoactive bowel sounds Extrem: Other: No edema bilaterally Objective Data Active Medications Acetaminophen (Acetaminophen 325 Mg Tablet) 650 mg PO Q6H PRN PRN Reason: Pain, Mild (Pain Scale 1-3) Last Admin: 09/22/23 07:59 Dose: 650 mg Documented By: CHETAN Benzonatate (Benzonatate 100 Mg Capsule) 100 mg PO TID PRN PRN Reason: Cough Last Admin: 09/26/23 08:39 Dose: 100 mg Documented By: CHETAN Carbidopa/Levodopa (Carbidopa/Levodopa Cr 25/100 Tablet.Er) 1 tab PO TID [facility] Last Admin: 09/26/23 08:39 Dose: 1 tab Documented By: CHETAN Docusate Sodium (Docusate Sodium 100 Mg Capsule) 100 mg PO DAILY PRN PRN Reason: Constipation Donepezil HCl (Donepezil Hcl 10 Mg Tablet) 10 mg PO BEDTIME [facility] Last Admin: 09/25/23 19:29 Dose: 10 mg Documented By: ROOSEVELT Enoxaparin Sodium (Enoxaparin Sodium 40 Mg/0.4 Ml Syringe) 40 mg SUBCUT Q24H [facility] Last Admin: 09/26/23 10:57 Dose: 40 mg Documented By: CHETAN Escitalopram Oxalate (Escitalopram Oxalate 20 Mg Tablet) 20 mg PO BEDTIME [facility] Last Admin: 09/25/23 19:29 Dose: 20 mg Documented By: ROOSEVELT Gabapentin (Gabapentin 300 Mg Capsule) 300 mg PO TID [facility] Last Admin: 09/26/23 08:39 Dose: 300 mg Documented By: CHETAN Melatonin (Melatonin 3 Mg Tablet) 9 mg PO BEDTIME [facility] Last Admin: 09/25/23 19:28 Dose: 9 mg Documented By: ROOSEVELT Prazosin HCl (Prazosin Hcl 1 Mg Capsule) 1 mg PO BID [facility]; Protocol Last Admin: 09/26/23 08:39 Dose: 1 mg Documented By: CHETAN Risperidone (Risperidone 0.5 Mg Tablet) 0.5 mg PO BID [facility] Last Admin: 09/26/23 08:39 Dose: 0.5 mg Documented By: CHETAN Sodium Chloride (0.9 % Sodium Chloride Flush 3 Ml Syringe) 3 ml IVFLUSH QSHIFT [facility] Last Admin: 09/26/23 08:38 Dose: Not Given Documented By: CHETAN Non-Admin Reason: No Access Labs 09/19/23 05:45 09/19/23 05:45 Assessment and Plan (1) Lewy body dementia: Status: Acute Plan Pt is a 58-year-old male with a PMH significant for?Lewy body dementia, tremors, and depression who initially presented to the ED on 08/27 2023 for evaluation increasing agitation. Patient initially placed in overflow under physician observation while awaiting long-term care/dementia unit placement. No beds are available at this time. Patient will be admitted to the hospital floor for further care while awaiting placement. 1.Worsening agitation -no events overnight... Remains cooperative -Likely in the setting of underlying worsening dementia and mood disorder -TSH, B12 and folate normal 2.Lewy body dementia -donepezil -further therapies as clinically relevant 3.Tremors/parkinsonism -at baseline -continue carbidopa levodopa 4.Mood disorder -Continue escitalopram, prazosin, risperidone. Full Code DVT Prophylaxis: Lovenox Reason for continued hospitalization: Awaiting placement in long-term/dementia unit as family is unable to safely care for him at home. Quality Stroke Does the patient have a stroke diagnosis?: No VTE Prior VTE?: No VTE Risk Level:: Medical - moderate - high VTE Device Contraindication: Treatment Not Indicated VTE Drug Contraindication: N/A - Med Ordered
--- NOTE | 2023-09-26 13:25 | PC.NURSE ---
Pt alert/orientedx3. Repetitive with questions at times but easily redirected. Pleasant in conversation today regarding [employer]bowl. Ambulated in llamas with 1 assist and walker. Sat in recliner. Self fed meals once set up. Tolerates pills whole in water.
[2023-09-26 15:59] VITALS: BP 124/71; PULSE 82; RESP 18; TEMP 36.2; O2SAT 94
[2023-09-26 20:00] VITALS: BP 130/69; PULSE 69; RESP 18; TEMP 35.2; O2SAT 95
[2023-09-26] MEDS: Donepezil HCl 10 MG TABLET PO (20:05)
[2023-09-26] MEDS: Escitalopram Oxalate 20 MG TABLET PO (20:05)
[2023-09-26] MEDS: Melatonin 3 MG TABLET 9 MG PO (20:05)
[2023-09-27 03:07] VITALS: BP 113/67; PULSE 114; RESP 20; TEMP 36.1; O2SAT 94
[2023-09-27 04:02] VITALS: PULSE 94
[2023-09-27 07:27] VITALS: BP 138/78; PULSE 78; RESP 18; TEMP 36.6; O2SAT 93
[2023-09-27] MEDS: Gabapentin 300 MG CAPSULE PO ×3 (08:59→19:41)
[2023-09-27] MEDS: Prazosin HCL 1 MG CAPSULE PO ×2 (08:59→19:41)
[2023-09-27] MEDS: Carbidopa/Levodopa CR 25/100 TABLET.ER 1 TAB PO ×3 (09:00→19:41)
[2023-09-27] MEDS: Enoxaparin Sodium 40 MG/0.4 ML SYRINGE SUBCUT (09:00)
[2023-09-27] MEDS: risperiDONE 0.5 MG TABLET PO ×2 (09:00→19:42)
--- NOTE | 2023-09-27 12:06 | P.PNIM_ITS ---
Subjective Subjective Date of Service: 09/27/23 Interval History: some mild stomach discomfort that has resolved no other complaints Review of Systems Review of Systems: Yes all other systems are reviewed and are negative Physical Exam 2 Vital Signs: Vital Signs: Last Vital Signs Temp 97.9 F 09/27/23 07:27 Pulse 78 09/27/23 07:27 Resp 18 09/27/23 07:27 BP 138/78 09/27/23 07:27 Pulse Ox 93 09/27/23 07:27 O2 Del Method Room Air 09/27/23 07:27 BMI result Body Mass Index 32.9 Gen: in no acute distress HEENT: sclera anicteric, moist mucus membranes Neck: supple Lungs: clear to auscultation bilaterally Heart: regular rate and rhythm, no murmurs Abd: soft, non-tender, non-distended Ext: no edema Skin: warm/well-perfused Neuro: alert, R-sided tremor Psych: restricted affect Objective Data Active Medications Acetaminophen (Acetaminophen 325 Mg Tablet) 650 mg PO Q6H PRN PRN Reason: Pain, Mild (Pain Scale 1-3) Last Admin: 09/22/23 07:59 Dose: 650 mg Documented By: CHETAN Benzonatate (Benzonatate 100 Mg Capsule) 100 mg PO TID PRN PRN Reason: Cough Last Admin: 09/26/23 08:39 Dose: 100 mg Documented By: CHETAN Carbidopa/Levodopa (Carbidopa/Levodopa Cr 25/100 Tablet.Er) 1 tab PO TID [facility] Last Admin: 09/27/23 09:00 Dose: 1 tab Documented By: CHEO Docusate Sodium (Docusate Sodium 100 Mg Capsule) 100 mg PO DAILY PRN PRN Reason: Constipation Donepezil HCl (Donepezil Hcl 10 Mg Tablet) 10 mg PO BEDTIME [facility] Last Admin: 09/26/23 20:05 Dose: 10 mg Documented By: ELOISE Enoxaparin Sodium (Enoxaparin Sodium 40 Mg/0.4 Ml Syringe) 40 mg SUBCUT Q24H [facility] Last Admin: 09/27/23 09:00 Dose: 40 mg Documented By: CHEO Escitalopram Oxalate (Escitalopram Oxalate 20 Mg Tablet) 20 mg PO BEDTIME [facility] Last Admin: 09/26/23 20:05 Dose: 20 mg Documented By: ELOISE Gabapentin (Gabapentin 300 Mg Capsule) 300 mg PO TID [facility] Last Admin: 09/27/23 08:59 Dose: 300 mg Documented By: CHEO Melatonin (Melatonin 3 Mg Tablet) 9 mg PO BEDTIME [facility] Last Admin: 09/26/23 20:05 Dose: 9 mg Documented By: ELOISE Prazosin HCl (Prazosin Hcl 1 Mg Capsule) 1 mg PO BID [facility]; Protocol Last Admin: 09/27/23 08:59 Dose: 1 mg Documented By: CHEO Risperidone (Risperidone 0.5 Mg Tablet) 0.5 mg PO BID [facility] Last Admin: 09/27/23 09:00 Dose: 0.5 mg Documented By: CHEO Sodium Chloride (0.9 % Sodium Chloride Flush 3 Ml Syringe) 3 ml IVFLUSH QSHIFT [facility] Last Admin: 09/27/23 08:59 Dose: Not Given Documented By: CHEO Non-Admin Reason: No Access Labs 09/19/23 05:45 09/19/23 05:45 Assessment and Plan (1) Lewy body dementia: Status: Acute Plan d19 58yo M with Lewy body dementia, tremors, depression who initially presented to ED 08/27/23 for increased agitation was awaiting LTC placement then admitted to medical floor to facilitate placement Lewy body dementia with behavioral agitation Parkinsonis mood disorder - continue donepezil, Sinemet, escitalopram, prazosin, risperidone, melatonin - agitation has resolved VTE ppx - LMWH dispo In my clinical judgment, the patient requires continued inpatient hospitalization for the following reasons: awaiting placement as family is unable to safely care for him at home Total time managing care of this patient today: 25 minutes. Quality Stroke Does the patient have a stroke diagnosis?: No VTE Prior VTE?: No VTE Risk Level:: Medical - moderate - high VTE Device Contraindication: Treatment Not Indicated VTE Drug Contraindication: N/A - Med Ordered
--- NOTE | 2023-09-27 13:55 | MHC.CM.PN ---
EMR REVIEWED. PT IS MEDICALLY CLEARED PENDING LTC/DEMENTIA CARE PLACEMENT. NO BED OFFERS AT THIS TIME. [facility] MILI UPDATED VIA TELEPHONE. CM WILL CONTINUE BROAD BED SEARCH AND ANY CHANGE IN DC NEEDS.
[2023-09-27 15:32] VITALS: BP 112/63; PULSE 80; RESP 18; TEMP 36.5; O2SAT 93
[2023-09-27 19:29] VITALS: BP 115/76; PULSE 79; RESP 18; TEMP 36.3; O2SAT 93
[2023-09-27] MEDS: Melatonin 3 MG TABLET 9 MG PO (19:40)
[2023-09-27] MEDS: Escitalopram Oxalate 20 MG TABLET PO (19:42)
[2023-09-27] MEDS: Donepezil HCl 10 MG TABLET PO (19:42)
[2023-09-28 04:00] VITALS: BP 128/73; PULSE 72; RESP 16; TEMP 36.1; O2SAT 92
[2023-09-28 07:29] VITALS: BP 129/77; PULSE 75; RESP 20; TEMP 36.6; O2SAT 96
[2023-09-28] MEDS: risperiDONE 0.5 MG TABLET PO ×2 (07:40→19:56)
[2023-09-28] MEDS: Gabapentin 300 MG CAPSULE PO ×3 (07:40→19:55)
[2023-09-28] MEDS: Carbidopa/Levodopa CR 25/100 TABLET.ER 1 TAB PO ×3 (07:40→19:57)
[2023-09-28] MEDS: Prazosin HCL 1 MG CAPSULE PO ×2 (07:40→19:56)
[2023-09-28] MEDS: Enoxaparin Sodium 40 MG/0.4 ML SYRINGE SUBCUT (09:26)
--- NOTE | 2023-09-28 11:15 | P.PNIM_ITS ---
Subjective Subjective Date of Service: 09/28/23 Interval History: no pain no N/V Review of Systems Review of Systems: Yes all other systems are reviewed and are negative Physical Exam 2 Vital Signs: Vital Signs: Last Vital Signs Temp 97.8 F 09/28/23 07:29 Pulse 75 09/28/23 07:29 Resp 20 09/28/23 07:29 BP 129/77 09/28/23 07:29 Pulse Ox 96 09/28/23 07:29 O2 Del Method Room Air 09/28/23 07:29 BMI result Body Mass Index 32.9 Gen: in no acute distress Lungs: normal resp effort Neuro: alert, tremor of hands Psych: restricted affect Objective Data Active Medications Acetaminophen (Acetaminophen 325 Mg Tablet) 650 mg PO Q6H PRN PRN Reason: Pain, Mild (Pain Scale 1-3) Last Admin: 09/22/23 07:59 Dose: 650 mg Documented By: CHETAN Benzonatate (Benzonatate 100 Mg Capsule) 100 mg PO TID PRN PRN Reason: Cough Last Admin: 09/26/23 08:39 Dose: 100 mg Documented By: CHETAN Carbidopa/Levodopa (Carbidopa/Levodopa Cr 25/100 Tablet.Er) 1 tab PO TID [facility] Last Admin: 09/28/23 07:40 Dose: 1 tab Documented By: CHEO Docusate Sodium (Docusate Sodium 100 Mg Capsule) 100 mg PO DAILY PRN PRN Reason: Constipation Donepezil HCl (Donepezil Hcl 10 Mg Tablet) 10 mg PO BEDTIME [facility] Last Admin: 09/27/23 19:42 Dose: 10 mg Documented By: FRANSISCO Enoxaparin Sodium (Enoxaparin Sodium 40 Mg/0.4 Ml Syringe) 40 mg SUBCUT Q24H [facility] Last Admin: 09/28/23 09:26 Dose: 40 mg Documented By: CHEO Escitalopram Oxalate (Escitalopram Oxalate 20 Mg Tablet) 20 mg PO BEDTIME [facility] Last Admin: 09/27/23 19:42 Dose: 20 mg Documented By: FRANSISCO Gabapentin (Gabapentin 300 Mg Capsule) 300 mg PO TID [facility] Last Admin: 09/28/23 07:40 Dose: 300 mg Documented By: CHEO Melatonin (Melatonin 3 Mg Tablet) 9 mg PO BEDTIME [facility] Last Admin: 09/27/23 19:40 Dose: 9 mg Documented By: FRANSISCO Ondansetron HCl (Ondansetron Odt 4 Mg Tab.Rapdis) 4 mg TRANSLINGU Q6H PRN PRN Reason: Nausea and Vomiting Prazosin HCl (Prazosin Hcl 1 Mg Capsule) 1 mg PO BID [facility]; Protocol Last Admin: 09/28/23 07:40 Dose: 1 mg Documented By: CHEO Risperidone (Risperidone 0.5 Mg Tablet) 0.5 mg PO BID [facility] Last Admin: 09/28/23 07:40 Dose: 0.5 mg Documented By: CHEO Sodium Chloride (0.9 % Sodium Chloride Flush 3 Ml Syringe) 3 ml IVFLUSH QSHIFT [facility] Last Admin: 09/28/23 06:52 Dose: Not Given Documented By: CHEO Non-Admin Reason: No Access Labs 09/19/23 05:45 09/19/23 05:45 Assessment and Plan (1) Lewy body dementia: Status: Acute Plan d20 58yo M with Lewy body dementia, tremors, depression who initially presented to ED 08/27/23 for increased agitation was awaiting LTC placement then admitted to medical floor to facilitate placement Lewy body dementia with behavioral agitation Parkinsonism mood disorder - continue donepezil, Sinemet, escitalopram, prazosin, risperidone, melatonin - agitation has resolved VTE ppx - LMWH dispo In my clinical judgment, the patient requires continued inpatient hospitalization for the following reasons: awaiting placement as family is unable to safely care for him at home Total time managing care of this patient today: 25 minutes. Quality Stroke Does the patient have a stroke diagnosis?: No VTE Prior VTE?: No VTE Risk Level:: Medical - moderate - high VTE Device Contraindication: Treatment Not Indicated VTE Drug Contraindication: N/A - Med Ordered
[2023-09-28 15:37] VITALS: BP 124/75; PULSE 83; RESP 18; TEMP 36; O2SAT 91
[2023-09-28] MEDS: Donepezil HCl 10 MG TABLET PO (19:56)
[2023-09-28] MEDS: Escitalopram Oxalate 20 MG TABLET PO (19:56)
[2023-09-28] MEDS: Melatonin 3 MG TABLET 9 MG PO (19:56)
[2023-09-28 20:00] VITALS: O2SAT 95
[2023-09-29 03:36] VITALS: BP 121/71; PULSE 67; RESP 18; TEMP 36.2; O2SAT 93
[2023-09-29 07:25] VITALS: BP 134/85; PULSE 66; RESP 16; TEMP 36; O2SAT 96
[2023-09-29] MEDS: Prazosin HCL 1 MG CAPSULE PO ×2 (08:50→19:47)
[2023-09-29] MEDS: risperiDONE 0.5 MG TABLET PO ×2 (08:54→19:48)
[2023-09-29] MEDS: Gabapentin 300 MG CAPSULE PO ×3 (08:54→19:47)
[2023-09-29] MEDS: Enoxaparin Sodium 40 MG/0.4 ML SYRINGE SUBCUT (08:55)
[2023-09-29] MEDS: Carbidopa/Levodopa CR 25/100 TABLET.ER 1 TAB PO ×3 (08:55→19:48)
--- NOTE | 2023-09-29 09:41 | HO.PM.IMPN ---
Subjective Subjective Date of Service: 09/29/23 Interval History: denies any complaints no fever/chills/cough/N/V Review of Systems Review of Systems: Yes all other systems are reviewed and are negative Physical Exam Vital Signs: Vital Signs: Last Vital Signs Temp 96.8 F 09/29/23 07:25 Pulse 66 09/29/23 07:25 Resp 16 09/29/23 07:25 BP 134/85 09/29/23 07:25 Pulse Ox 96 09/29/23 07:25 O2 Del Method Room Air 09/29/23 07:25 BMI result Body Mass Index 32.9 Gen: in no acute distress Lungs: normal resp effort Neuro: alert, tremor of hands Psych: restricted affect Objective Data Active Medications Acetaminophen (Acetaminophen 325 Mg Tablet) 650 mg PO Q6H PRN PRN Reason: Pain, Mild (Pain Scale 1-3) Last Admin: 09/22/23 07:59 Dose: 650 mg Documented By: CHETAN Benzonatate (Benzonatate 100 Mg Capsule) 100 mg PO TID PRN PRN Reason: Cough Last Admin: 09/26/23 08:39 Dose: 100 mg Documented By: CHETAN Carbidopa/Levodopa (Carbidopa/Levodopa Cr 25/100 Tablet.Er) 1 tab PO TID [facility] Last Admin: 09/29/23 08:55 Dose: 1 tab Documented By: NIXON Docusate Sodium (Docusate Sodium 100 Mg Capsule) 100 mg PO DAILY PRN PRN Reason: Constipation Donepezil HCl (Donepezil Hcl 10 Mg Tablet) 10 mg PO BEDTIME [facility] Last Admin: 09/28/23 19:56 Dose: 10 mg Documented By: MALISSA Enoxaparin Sodium (Enoxaparin Sodium 40 Mg/0.4 Ml Syringe) 40 mg SUBCUT Q24H [facility] Last Admin: 09/29/23 08:55 Dose: 40 mg Documented By: NIXON Escitalopram Oxalate (Escitalopram Oxalate 20 Mg Tablet) 20 mg PO BEDTIME [facility] Last Admin: 09/28/23 19:56 Dose: 20 mg Documented By: MALISSA Gabapentin (Gabapentin 300 Mg Capsule) 300 mg PO TID [facility] Last Admin: 09/29/23 08:54 Dose: 300 mg Documented By: NIXON Melatonin (Melatonin 3 Mg Tablet) 9 mg PO BEDTIME [facility] Last Admin: 09/28/23 19:56 Dose: 9 mg Documented By: MALISSA Ondansetron HCl (Ondansetron Odt 4 Mg Tab.Rapdis) 4 mg TRANSLINGU Q6H PRN PRN Reason: Nausea and Vomiting Prazosin HCl (Prazosin Hcl 1 Mg Capsule) 1 mg PO BID [facility]; Protocol Last Admin: 09/29/23 08:50 Dose: 1 mg Documented By: NIXON Risperidone (Risperidone 0.5 Mg Tablet) 0.5 mg PO BID [facility] Last Admin: 09/29/23 08:54 Dose: 0.5 mg Documented By: NIXON Sodium Chloride (0.9 % Sodium Chloride Flush 3 Ml Syringe) 3 ml IVFLUSH QSHIFT [facility] Last Admin: 09/29/23 09:08 Dose: Not Given Documented By: ABBY Non-Admin Reason: No Access Labs 09/19/23 05:45 09/19/23 05:45 Assessment and Plan (1) Lewy body dementia: Status: Acute Plan d21 58yo M with Lewy body dementia, tremors, depression who initially presented to ED 08/27/23 for increased agitation was awaiting LTC placement then admitted to medical floor to facilitate placement Lewy body dementia with behavioral agitation Parkinsonism mood disorder - continue donepezil, Sinemet, escitalopram, prazosin, risperidone, melatonin - agitation has resolved VTE ppx - LMWH dispo In my clinical judgment, the patient requires continued inpatient hospitalization for the following reasons: awaiting placement as family is unable to safely care for him at home Total time managing care of this patient today: 25 minutes. Quality Stroke Does the patient have a stroke diagnosis?: No VTE Prior VTE?: No VTE Risk Level:: Medical - moderate - high VTE Device Contraindication: Treatment Not Indicated VTE Drug Contraindication: N/A - Med Ordered
--- NOTE | 2023-09-29 12:55 | MHC.CM.PN ---
Addendum entered by Evelia Lees 09/30/23 14:17: [facility] CALLED THIS MORNING AND REPORTED THEY HAD COVID AND WILL NOT BE ABLE TO VISIT PT BEFORE WEDNESDAY Original Note: CM SPOKE WITH LIAISON FROM [facility]/MAGGIE CALLED AND WILL BE HERE TO SEE PT 09/30 AT 9:30 AM. RN MADE AWARE. MILI UPDATED. CM WILL CONTINUE TO FOLLOW FOR ANY CHANGE IN DC PLAN/NEEDS.
[2023-09-29 15:17] VITALS: BP 123/78; PULSE 81; RESP 19; TEMP 36.3; O2SAT 93
[2023-09-29 19:19] VITALS: BP 131/80; PULSE 83; RESP 19; TEMP 36.8; O2SAT 95
[2023-09-29] MEDS: Donepezil HCl 10 MG TABLET PO (19:47)
[2023-09-29] MEDS: Melatonin 3 MG TABLET 9 MG PO (19:47)
[2023-09-29] MEDS: Escitalopram Oxalate 20 MG TABLET PO (19:48)
[2023-09-30 04:00] VITALS: BP 112/74; PULSE 60; RESP 18; TEMP 36.5; O2SAT 93
[2023-09-30 07:11] VITALS: BP 147/86; PULSE 79; RESP 16; TEMP 36.2; O2SAT 94
[2023-09-30] MEDS: Acetaminophen 325 MG TABLET 650 MG PO (10:45)
[2023-09-30] MEDS: risperiDONE 0.5 MG TABLET PO ×2 (10:45→19:45)
[2023-09-30] MEDS: Gabapentin 300 MG CAPSULE PO ×3 (10:46→19:44)
[2023-09-30] MEDS: Enoxaparin Sodium 40 MG/0.4 ML SYRINGE SUBCUT (10:46)
[2023-09-30] MEDS: Prazosin HCL 1 MG CAPSULE PO ×2 (10:46→19:46)
[2023-09-30] MEDS: Carbidopa/Levodopa CR 25/100 TABLET.ER 1 TAB PO ×3 (10:46→19:44)
--- NOTE | 2023-09-30 11:23 | P.PNIM_ITS ---
Subjective Subjective Date of Service: 09/30/23 Interval History: no new events Review of Systems Review of Systems: Yes all other systems are reviewed and are negative Physical Exam 2 Vital Signs: Vital Signs: Last Vital Signs Temp 97.1 F 09/30/23 07:11 Pulse 79 09/30/23 07:11 Resp 16 09/30/23 07:11 BP 147/86 H 09/30/23 07:11 Pulse Ox 94 09/30/23 07:11 O2 Del Method Room Air 09/30/23 07:11 BMI result Body Mass Index 32.9 Gen: in no acute distress Lungs: normal resp effort Neuro: alert, tremor of hands Psych: restricted affect Objective Data Active Medications Acetaminophen (Acetaminophen 325 Mg Tablet) 650 mg PO Q6H PRN PRN Reason: Pain, Mild (Pain Scale 1-3) Last Admin: 09/30/23 10:45 Dose: 650 mg Documented By: MELISSA Benzonatate (Benzonatate 100 Mg Capsule) 100 mg PO TID PRN PRN Reason: Cough Last Admin: 09/26/23 08:39 Dose: 100 mg Documented By: CHETAN Carbidopa/Levodopa (Carbidopa/Levodopa Cr 25/100 Tablet.Er) 1 tab PO TID [facility] Last Admin: 09/30/23 10:46 Dose: 1 tab Documented By: MELISSA Docusate Sodium (Docusate Sodium 100 Mg Capsule) 100 mg PO DAILY PRN PRN Reason: Constipation Donepezil HCl (Donepezil Hcl 10 Mg Tablet) 10 mg PO BEDTIME [facility] Last Admin: 09/29/23 19:47 Dose: 10 mg Documented By: MALISSA Enoxaparin Sodium (Enoxaparin Sodium 40 Mg/0.4 Ml Syringe) 40 mg SUBCUT Q24H [facility] Last Admin: 09/30/23 10:46 Dose: 40 mg Documented By: MELISSA Escitalopram Oxalate (Escitalopram Oxalate 20 Mg Tablet) 20 mg PO BEDTIME [facility] Last Admin: 09/29/23 19:48 Dose: 20 mg Documented By: MALISSA Gabapentin (Gabapentin 300 Mg Capsule) 300 mg PO TID [facility] Last Admin: 09/30/23 10:46 Dose: 300 mg Documented By: MELISSA Melatonin (Melatonin 3 Mg Tablet) 9 mg PO BEDTIME [facility] Last Admin: 09/29/23 19:47 Dose: 9 mg Documented By: MALISSA Ondansetron HCl (Ondansetron Odt 4 Mg Tab.Rapdis) 4 mg TRANSLINGU Q6H PRN PRN Reason: Nausea and Vomiting Prazosin HCl (Prazosin Hcl 1 Mg Capsule) 1 mg PO BID [facility]; Protocol Last Admin: 09/30/23 10:46 Dose: 1 mg Documented By: MELISSA Risperidone (Risperidone 0.5 Mg Tablet) 0.5 mg PO BID [facility] Last Admin: 09/30/23 10:45 Dose: 0.5 mg Documented By: MELISSA Sodium Chloride (0.9 % Sodium Chloride Flush 3 Ml Syringe) 3 ml IVFLUSH QSHIFT [facility] Last Admin: 09/30/23 10:46 Dose: Not Given Documented By: MELISSA Non-Admin Reason: No Access Labs 09/19/23 05:45 09/19/23 05:45 Assessment and Plan (1) Lewy body dementia: Status: Acute Plan d22 58yo M with Lewy body dementia, tremors, depression who initially presented to ED 08/27/23 for increased agitation was awaiting LTC placement then admitted to medical floor to facilitate placement Lewy body dementia with behavioral agitation Parkinsonism mood disorder - continue donepezil, Sinemet, escitalopram, prazosin, risperidone, melatonin - agitation has resolved VTE ppx - LMWH dispo In my clinical judgment, the patient requires continued inpatient hospitalization for the following reasons: awaiting placement as family is unable to safely care for him at home Total time managing care of this patient today: 25 minutes. Quality Stroke Does the patient have a stroke diagnosis?: No VTE Prior VTE?: No VTE Risk Level:: Medical - moderate - high VTE Device Contraindication: Treatment Not Indicated VTE Drug Contraindication: N/A - Med Ordered
[2023-09-30 15:39] VITALS: BP 133/71; PULSE 87; RESP 19; TEMP 36.8; O2SAT 93
[2023-09-30 19:16] VITALS: BP 159/84; PULSE 87; RESP 18; TEMP 36.3; O2SAT 94
[2023-09-30] MEDS: Escitalopram Oxalate 20 MG TABLET PO (19:44)
[2023-09-30] MEDS: Donepezil HCl 10 MG TABLET PO (19:45)
[2023-09-30] MEDS: Melatonin 3 MG TABLET 9 MG PO (19:45)
[2023-10-01 03:24] VITALS: BP 114/79; PULSE 71; RESP 16; TEMP 36.3; O2SAT 94
[2023-10-01 07:03] VITALS: BP 139/86; PULSE 74; RESP 18; TEMP 36.4; O2SAT 92
[2023-10-01] MEDS: Gabapentin 300 MG CAPSULE PO ×3 (09:33→21:22)
[2023-10-01] MEDS: Carbidopa/Levodopa CR 25/100 TABLET.ER 1 TAB PO ×3 (09:33→21:23)
[2023-10-01] MEDS: Prazosin HCL 1 MG CAPSULE PO ×2 (09:34→21:23)
[2023-10-01] MEDS: risperiDONE 0.5 MG TABLET PO ×2 (09:34→21:23)
[2023-10-01] MEDS: Enoxaparin Sodium 40 MG/0.4 ML SYRINGE SUBCUT (09:34)
--- NOTE | 2023-10-01 10:25 | MHC.CM.PN ---
Addendum entered by Vickie Lu RN 10/01/23 10:35: CM updated , who will reach out to following facilities and additional facilities as well. Original Note: EMR reviewed. Patient continues to await LTC placement. [facility] will come visit patient 2/19 am. [facility] is considering patient and needs 3 days of nursing notes re: mood/behaviors. RN aware and will pass on in report. CM will continue to follow.
--- NOTE | 2023-10-01 11:54 | P.PNIM_ITS ---
Subjective Subjective Date of Service: 10/01/23 Interval History: no complaints, no new events Review of Systems Review of Systems: Yes all other systems are reviewed and are negative Physical Exam 2 Vital Signs: Vital Signs: Last Vital Signs Temp 97.6 F 10/01/23 07:03 Pulse 74 10/01/23 07:03 Resp 18 10/01/23 07:03 BP 139/86 10/01/23 07:03 Pulse Ox 92 10/01/23 07:03 O2 Del Method Room Air 10/01/23 07:03 BMI result Body Mass Index 32.9 Gen: in no acute distress Lungs: normal resp effort Neuro: alert, tremor of hands Psych: restricted affect Objective Data Active Medications Acetaminophen (Acetaminophen 325 Mg Tablet) 650 mg PO Q6H PRN PRN Reason: Pain, Mild (Pain Scale 1-3) Last Admin: 09/30/23 10:45 Dose: 650 mg Documented By: MELISSA Benzonatate (Benzonatate 100 Mg Capsule) 100 mg PO TID PRN PRN Reason: Cough Last Admin: 09/26/23 08:39 Dose: 100 mg Documented By: CHETAN Carbidopa/Levodopa (Carbidopa/Levodopa Cr 25/100 Tablet.Er) 1 tab PO TID [facility] Last Admin: 10/01/23 09:33 Dose: 1 tab Documented By: LARRY Docusate Sodium (Docusate Sodium 100 Mg Capsule) 100 mg PO DAILY PRN PRN Reason: Constipation Donepezil HCl (Donepezil Hcl 10 Mg Tablet) 10 mg PO BEDTIME [facility] Last Admin: 09/30/23 19:45 Dose: 10 mg Documented By: MALISSA Enoxaparin Sodium (Enoxaparin Sodium 40 Mg/0.4 Ml Syringe) 40 mg SUBCUT Q24H [facility] Last Admin: 10/01/23 09:34 Dose: 40 mg Documented By: LARRY Escitalopram Oxalate (Escitalopram Oxalate 20 Mg Tablet) 20 mg PO BEDTIME [facility] Last Admin: 09/30/23 19:44 Dose: 20 mg Documented By: MALISSA Gabapentin (Gabapentin 300 Mg Capsule) 300 mg PO TID [facility] Last Admin: 10/01/23 09:33 Dose: 300 mg Documented By: LARRY Melatonin (Melatonin 3 Mg Tablet) 9 mg PO BEDTIME [facility] Last Admin: 09/30/23 19:45 Dose: 9 mg Documented By: MALISSA Ondansetron HCl (Ondansetron Odt 4 Mg Tab.Rapdis) 4 mg TRANSLINGU Q6H PRN PRN Reason: Nausea and Vomiting Prazosin HCl (Prazosin Hcl 1 Mg Capsule) 1 mg PO BID [facility]; Protocol Last Admin: 10/01/23 09:34 Dose: 1 mg Documented By: LARRY Risperidone (Risperidone 0.5 Mg Tablet) 0.5 mg PO BID [facility] Last Admin: 10/01/23 09:34 Dose: 0.5 mg Documented By: LARRY Sodium Chloride (0.9 % Sodium Chloride Flush 3 Ml Syringe) 3 ml IVFLUSH QSHIFT [facility] Last Admin: 10/01/23 10:08 Dose: Not Given Documented By: LARRY Non-Admin Reason: No Access Labs 09/19/23 05:45 09/19/23 05:45 Assessment and Plan (1) Lewy body dementia: Status: Acute Plan d23 58yo M with Lewy body dementia, tremors, depression who initially presented to ED 08/27/23 for increased agitation was awaiting LTC placement then admitted to medical floor to facilitate placement Lewy body dementia with behavioral agitation Parkinsonism mood disorder - continue donepezil, Sinemet, escitalopram, prazosin, risperidone, melatonin - agitation has resolved VTE ppx - LMWH dispo In my clinical judgment, the patient requires continued inpatient hospitalization for the following reasons: awaiting placement as family is unable to safely care for him at home Total time managing care of this patient today: 25 minutes. Quality Stroke Does the patient have a stroke diagnosis?: No VTE Prior VTE?: No VTE Risk Level:: Medical - moderate - high VTE Device Contraindication: Treatment Not Indicated VTE Drug Contraindication: N/A - Med Ordered
[2023-10-01] MEDS: Acetaminophen 325 MG TABLET 650 MG PO (14:00)
--- NOTE | 2023-10-01 14:38 | PC.NURSE ---
Patient alert and oriented to person, place and situation, c/o back pain stating it has been chronic, able to get out of bed to recliner chair with assistance. On regular diet able to feed himself with set up. Patient states he would like to skip medications but when presented with meds is agreeable to take medications. Calm and cooperative, impulsive, repetitive but easily redirectable.
[2023-10-01 15:04] VITALS: BP 126/76; PULSE 83; RESP 18; TEMP 36; O2SAT 94
--- NOTE | 2023-10-01 16:08 | MHC.CM.PN ---
YESSICA RECEIVED A CALL FROM SPENCER AT [facility] SHE INDICATED THIS PTS CASE HAD BEEN REVIEWED AND THEY WOULD BE ABLE TO OFFER A BED EARLY TOMORROW YESSICA CALLED AND LEFT A VM FOR PTS , MILI, INFORMING HER ON INTENT TO DC TOMORROW MORNING AT 1000 HOURS BLS TRANSPORT BOOKED WITH [facility]
--- NOTE | 2023-10-01 17:27 | PM.DS ---
DS: Providers Provider Date of Service: 10/02/23 Date of admission: 09/09/23 22:24 Date of discharge: 10/02/23 Primary care physician: Nick Cardona MD Consults: 08/27/23 22:56 Consult to Care Team Stat Comment: Reason for consultation: Lewy Body Dementia, Aggresion 08/28/23 00:09 Consult to Psychiatry Stat Consulting Provider: Psych Covering Reason for consultation: Progressive agitation and aggression in pt with Lewy Body Dementia Has provider been notified: No DS: Diagnosis Discharge Diagnosis (1) Lewy body dementia: Status: Acute DS: Summary Hospital Course Hospital Course: from admission H+P by hospitalist EPHRAIM Andrade, 09/09/23: Pt is a 58-year-old male with a PMH significant for?Lewy body dementia, tremors, and depression who initially presented to the ED on 08/27 2023 for evaluation increasing agitation, disorganized behavior, and vague suicidal ideation. Patient's reports patient becomes very agitated when he does not get his medications at the time he requests them, and has become worried about the safety of the young children in the household. Patient was previously at [facility] and discharged approximately 2 weeks prior?around 08/13/2023. Pt was awaiting placement at SNF at that time but insurance ran out and pt was discharged home. states pt significantly declined in the 2 weeks since discharge. Workup in our ED negative for any acute abnormalities. Patient was placed in physician observation and sent to overflow area and then evaluated by Psychiatry, care team, and case management. A search for long-term care/dementia unit placement was undertaken, which has so far been unsuccessful with no beds available at this time. Pt will be admitted to the hospital floor while awaiting placement. While in overflow pt's hospital course was uncomplicated. Vitals remained stable and pt had mostly uneventful nights. Attempted to see pt for H&P interview and exam, but pt was sleeping peacefully. Given his hx of agitation and aggressive behaviors did not attempt to awaken. 58yo M with Lewy body dementia, tremors, depression who initially presented to ED 08/27/23 for increased agitation, and was awaiting LTC placement in the overflow unit. He was then admitted to the medical floor to facilitate placement, though there were no acute medical issues. His medications were continued. Agitation resolved. He was placed in LTC as his family is unable to care for him safely at home. Time Attestation Discharge coordination time: Greater than 30 minutes Quality: Safe Use of Opioids Does Pt have an Active Cancer Diagnosis on the Problem List?: No Quality: Stroke Does the patient have a stroke diagnosis?: No Physical Exam Vital Signs: Vital Signs: Temp Pulse Resp BP Pulse Ox O2 Del Method 97.8 F 82 20 142/80 H 94 Room Air 10/02/23 07:10/02/23 07:31 10/02/23 07:31 10/02/23 07:31 10/02/23 07:31 10/02/23 07:31 Gen: in no acute distress HEENT: sclera anicteric, moist mucus membranes Neck: supple Lungs: clear to auscultation bilaterally Heart: regular rate and rhythm, no murmurs Abd: soft, non-tender, non-distended Ext: no edema Skin: warm/well-perfused Neuro: alert, bilateral hand tremor Psych: restricted affect DS: Data Data Completed and Pending Completed studies during hospitalization [Text1]: Laboratory Results WBC 7.4 X10*3/uL (4.8-10.8) 09/19/23 05:45 RBC 4.60 X10*6/uL (4.60-5.80) 09/19/23 05:45 Hgb 13.7 g/dl (14.0-18.0) L 09/19/23 05:45 Hct 42.0 % (42.0-52.0) 09/19/23 05:45 MCV 91.3 fL (80.0-98.0) 09/19/23 05:45 MCH 29.8 pg (27.0-33.0) 09/19/23 05:45 MCHC 32.6 g/dl (31.0-36.0) 09/19/23 05:45 RDW 12.9 % (11.0-16.0) 09/19/23 05:45 Plt Count 208 X10*3/uL (160-400) D 09/19/23 05:45 MPV 10.6 fL (9.4-12.4) 09/19/23 05:45 Immature Gran % (Auto) 1.0 % (0.0-0.4) H 09/13/23 05:33 Neut % (Auto) 66.0 % (45-73) 09/13/23 05:33 Lymph % (Auto) 22.2 % (20-40) 09/13/23 05:33 Dukes % (Auto) 8.3 % (2-11) 09/13/23 05:33 Eos % (Auto) 1.9 % (0-4) 09/13/23 05:33 Baso % (Auto) 0.6 % (0-2) 09/13/23 05:33 Lymph # (Auto) 1.9 X10*3/uL (1.2-4.9) 09/13/23 05:33 Dukes # (Auto) 0.7 X10*3/uL (0.1-1.2) 09/13/23 05:33 Eos # (Auto) 0.2 X10*3/uL (0.0-0.4) 09/13/23 05:33 Baso # (Auto) 0.1 X10*3/uL (0.0-0.2) 09/13/23 05:33 Abs Immat Gran (auto) 0.08 X10*3/uL (0.00-0.03) H 09/13/23 05:33 Absolute Neuts (auto) 5.5 x10*3/uL (2.0-8.3) 09/13/23 05:33 Absolute Nucleated RBC 0.000 X10*3/uL (0.0-0.012) 09/19/23 05:45 Nucleated RBC % (auto) 0.0 /100WBC (0.0-0.2) 09/19/23 05:45 Sodium 143 mmol/L (135-145) 09/19/23 05:45 Potassium 3.6 mmol/L (3.3-5.1) 09/19/23 05:45 Chloride 108 mmol/L (96-108) 09/19/23 05:45 Carbon Dioxide 24 mmol/L (22-29) 09/19/23 05:45 Anion Gap 15 (12-20) 09/19/23 05:45 BUN 18 mg/dL (9-16) H 09/19/23 05:45 Creatinine 0.87 mg/dL (0.5-1.4) 09/19/23 05:45 Estim Creat Clear Calc 110.3 09/19/23 05:45 Estimated GFR > 60 09/19/23 05:45 Random Glucose 108 mg/dL (60-115) 09/19/23 05:45 Fasting Glucose 104 mg/dL (60-99) H 09/13/23 05:33 Calcium 9.1 mg/dL (8.4-10.2) 09/19/23 05:45 Total Bilirubin 0.4 mg/dL (0.0-1.0) 09/13/23 05:33 Direct Bilirubin 0.1 mg/dL (0.0-0.5) 08/27/23 20:44 AST 22 U/L (5-37) 09/13/23 05:33 ALT 5 U/L (0-40) 09/13/23 05:33 Alkaline Phosphatase 75 U/L (39-117) 09/13/23 05:33 Total Protein 6.4 g/dL (6.5-8.0) L 09/13/23 05:33 Albumin 3.7 g/dL (3.5-5.0) 09/13/23 05:33 Vitamin B12 329 pg/mL (200-900) 09/11/23 08:46 Folate 7.3 ng/mL (> or = 4.0) 09/11/23 08:46 TSH 2.76 uIU/mL (0.32-4.0) 09/11/23 08:46 Urine Color Yellow 08/27/23 23:06 Urine Appearance Clear 08/27/23 23:06 Urine pH 7.0 (5.0-9.0) 08/27/23 23:06 Ur Specific Clifford 1.025 (1.005-1.025) 08/27/23 23:06 Urine Protein Negative mg/dL (Neg-Trace) 08/27/23 23:06 Urine Glucose (UA) Negative mg/dL (Negative) 08/27/23 23:06 Urine Ketones Trace mg/dL (Negative) 08/27/23 23:06 Urine Blood Negative (Negative) 08/27/23 23:06 Urine Nitrite Negative (Negative) 08/27/23 23:06 Ur Leukocyte Esterase Negative (Negative) 08/27/23 23:06 Urine Opiates Screen Not Detected (Not Detect) 08/27/23 23:06 Urine Fentanyl Screen Not Detected (Not Detect) 08/27/23 23:06 Ur Barbiturates Screen Not Detected (Not Detect) 08/27/23 23:06 Ur Phencyclidine Scrn Not Detected (Not Detect) 08/27/23 23:06 Ur Amphetamines Screen Not Detected (Not Detect) 08/27/23 23:06 U Benzodiazepines Scrn Not Detected (Not Detect) 08/27/23 23:06 Urine Cocaine Screen Not Detected (Not Detect) 08/27/23 23:06 U Marijuana (THC) Screen Not Detected (Not Detect) 08/27/23 23:06 Ethyl Alcohol < 10 mg/dL 08/27/23 20:44 Impressions Chest X-Ray 09/15/23 11:42 IMPRESSION: Unremarkable examination. Discharge Plan Discharge Anticipated Discharge Date/Time: 10/02/23 17:25 Patient Disposition: Xfer SNF Discharge Diagnosis: Lewy Body dementia Referrals: [facility] [Outside] Nick Cardona MD [Primary Care Provider] - 1 Week Discharge Medications: New donepezil 10 mg Tablet 10 mg PO BEDTIME Qty: 30 0RF Continued carbidopa-levodopa 25-100 mg tablet extended release 1 tab PO TID prazosin 1 mg capsule 1 mg PO BID gabapentin 300 mg capsule 300 mg PO TID zolpidem 5 mg tablet 5 mg PO BEDTIME risperidone 0.5 mg tablet 0.5 mg PO BID escitalopram oxalate 20 mg tablet 20 mg PO BEDTIME melatonin 10 mg Tablet 10 mg PO BEDTIME Discontinued donepezil 5 mg tablet 5 mg PO BEDTIME Discharge Orders: Discharge Order (Routine); Ordered 10/02/23 Ordered By: Edin Maldonado Diet: Advance to usual diet Activity on Discharge: As tolerated Stand Alone Forms: Patient Portal Discharge page Care Plan Goals: long-term care Health Concerns: Lewy Body dementia Plan of Treatment: long-term senior living care Assessment: See Discharge Summary.
[2023-10-01 19:45] VITALS: BP 131/78; PULSE 86; RESP 20; TEMP 36; O2SAT 93
[2023-10-01] MEDS: Donepezil HCl 10 MG TABLET PO (21:23)
[2023-10-01] MEDS: Escitalopram Oxalate 20 MG TABLET PO (21:23)
[2023-10-01] MEDS: Melatonin 3 MG TABLET 9 MG PO (21:23)
[2023-10-02 02:46] VITALS: BP 125/74; PULSE 65; RESP 16; TEMP 36.4; O2SAT 96
--- NOTE | 2023-10-02 06:11 | PC.NURSE ---
Pt alert & orientated to self and place. Pt has Hx of Lewy Body Dementia. Tremors to bilateral hands, 1 assist OOB with walker. Pt was calm & cooperative while shift assessment and medication pass. Pt had no c/o of pain. Pt's bed in lowest position with alarm and camera in place. vvs. Will continue to monitor.
[2023-10-02 07:31] VITALS: BP 142/80; PULSE 82; RESP 20; TEMP 36.6; O2SAT 94
[2023-10-02] MEDS: Carbidopa/Levodopa CR 25/100 TABLET.ER 1 TAB PO (09:51)
[2023-10-02] MEDS: risperiDONE 0.5 MG TABLET PO (09:51)
[2023-10-02] MEDS: Gabapentin 300 MG CAPSULE PO (09:51)
[2023-10-02] MEDS: Prazosin HCL 1 MG CAPSULE PO (09:51)
[2023-10-02] MEDS: Enoxaparin Sodium 40 MG/0.4 ML SYRINGE SUBCUT (09:51)
--- NOTE | 2023-10-02 10:37 | MHC.CM.PN ---
YESSICA SPOKE TO SPENCER AT [facility] THIS MORNING , SHE CONFIRMED THEY ARE ABLE TO TAKE PT TODAY BUT DID EXPRESS CONCERN ABOUT AUTH. YESSICA INFORMED HER [facility] THE LIST OF COMPANIES CURRENTLY WAIVING PRIOR AUTH. SHE STATED THEY WOULD ACCEPT PT NOW AND SHE WOULD SUBMIT FOR AUTH POST ADMISSION. YESSICA SPOKE TO PTS MILI WHO CAME IN AND BROUGHT CLOTHES FOR THE PT TO TAKE WITH HIM. PTS WAS HERE DURING DC AND SAYS SHE WILL GO TO [place] TOMORROW AND BRING ANY OTHER ITEMS HE MAY NEED PT WAS TRANSPORTED VIA [facility]
== END 2023-10-02 10:27 | disposition skilled nursing facility (03) | DRG 57 ==
LOC: HO.ED 09-09 20:36 → HO.EDOVER 09-09 22:32 → HO.S3 09-09 23:08
PROVIDERS: Hospitalist; Nurse Practitioner Acute Care; Student in an Organized Health Care Education/Training Program; Admitting Provider Student in an Organized Health Care Education/Training Program; Emergency Provider Emergency Medicine; PCP Family Medicine; Visit Provider Family Medicine
DX: G31.83 Neurocognitive disorder with Lewy bodies (principal); R45.851 Suicidal ideations; F02.811 Dementia in other diseases classified elsewhere, unspecified severity, with agitation; G20.C Parkinsonism, unspecified; F32.A Depression, unspecified; G47.00 Insomnia, unspecified; Z75.1 Person awaiting admission to adequate facility elsewhere; Z91.51 Personal history of suicidal behavior; Z79.899 Other long term (current) drug therapy
CPT/HCPCS: 36415; 71045; 80048; 80053; 80307; 81003; 82248; 82607; 82746; 84443; 85025; 85027; 97162; 99285; J1650; S9485

== ENCOUNTER → 2023-08-27 20:34 | Outpatient (BNV) | payer OTHER, SELFPAY | PROVIDERS: Emergency Provider Emergency Medicine; Visit Provider Psychiatry & Neurology Psychiatry | DX: G31.83 Neurocognitive disorder with Lewy bodies (principal); F02.80 Dementia in other diseases classified elsewhere, unspecified severity, without behavioral disturbance, psychotic disturbance, mood disturbance, and anxiety | CPT/HCPCS: 99232; 99283 ==

== ENCOUNTER → 2023-09-09 22:24 | Outpatient (BNV) | payer MEDICARE, SELFPAY | PROVIDERS: Admitting Provider Student in an Organized Health Care Education/Training Program; Emergency Provider Emergency Medicine; Visit Provider Internal Medicine | DX: G31.83 Neurocognitive disorder with Lewy bodies (principal); F02.80 Dementia in other diseases classified elsewhere, unspecified severity, without behavioral disturbance, psychotic disturbance, mood disturbance, and anxiety | CPT/HCPCS: 99222; 99223; 99231; 99232; 99238 ==